=== PATIENT | female | born 1940 | race Caucasian/White ===

== ENCOUNTER 2022-11-26 16:47 | Emergency (ER) | payer OTHER, SELFPAY ==
[2022-11-26 17:16] VITALS: BP 209/72; PULSE 63; RESP 16; TEMP 36.1; O2SAT 63; BMI 28.3
--- NOTE | 2022-11-26 17:20 | ED.GENADULT ---
HPI - General Adult General Chief complaint: General Medical Stated complaint: UC referral high blood pressure Time Seen by Provider: 11/26/22 21:48 Source: patient Mode of arrival: ambulatory Limitations: no limitations History of Present Illness HPI narrative: 82-year-old female presents with multiple complaints. Her story starts yesterday where she developed blurred vision light sensitivity and I pain secondary to a new eyedrop for glaucoma. She was taking Alphagan. Symptoms lasted for several hours. She had severe photophobia. She had no nausea vomiting. Patient also developed a right-sided headache, dental pain and facial swelling as well as lymphadenopathy. Symptoms progressed today. She describes her pain as moderate to severe particularly in the left lower jaw. The pain can radiate to her neck into her hindu. There is no clear relieving or exacerbating features. Patient describes the pain as an 8/10. It is aching and pressure-like in nature. She has no focal neurologic deficits. She does also have a history of temporal arteritis but that has been several years ago. She has had no fevers or chills. She denies any neck pain or stiffness. She went to urgent care today was getting a prescription for penicillin however, her blood pressure was noted to be markedly elevated and she was sent to the emergency department for evaluation. Related Data Previous Rx's Medication Instructions Recorded acetaminophen 300 mg-codeine 30 mg 1 tab PO Q8H PRN pain #10 tabs 11/27/22 tablet amoxicillin 875 mg-potassium 1 tab PO BID #20 tabs 11/27/22 clavulanate 125 mg tablet Allergies Allergy/AdvReac Type Severity Reaction Status Date / Time morphine AdvReac vomiting Verified 11/26/22 17:24 Review of Systems Review of Systems: CONSTITUTIONAL: Denies weight loss, fever and chills. HEENT: + changes in vision - hearing. RESPIRATORY: Denies SOB and cough. CV: Denies palpitations no CP. GI: Denies abdominal pain, nausea, vomiting and diarrhea. : Denies dysuria and urinary frequency. MSK: Denies myalgia and joint pain. SKIN: Denies rash and pruritus. NEUROLOGICAL: + headache - syncope. PSYCHIATRIC: Denies recent changes in mood. Denies anxiety and depression. All other ROS are negative unless in HPI PMFSH Social History Social History Advance Directives: No Advance Directives Information Provided: Yes Physical Exam ED Vital Signs: Vital Signs - 24 hr 11/26/22 17:16 11/26/22 19:17 11/26/22 21:21 Temperature 96.9 F 98.6 F 98.6 F Pulse Rate 63 67 64 Respiratory Rate 16 16 18 Blood Pressure 209/72 H 223/91 H 188/85 H Pulse Oximetry 63 L 98 98 Oxygen Delivery Method Room Air Room Air Room Air 11/26/22 22:23 11/26/22 23:20 11/27/22 00:11 Temperature 98.3 F 97.4 F 98.3 F Pulse Rate 59 59 56 Respiratory Rate 18 16 16 Blood Pressure 147/68 H 182/92 H 157/75 H Pulse Oximetry 96 98 98 Oxygen Delivery Method Room Air Room Air Room Air BMI result Body Mass Index 28.3 GEN: Well developed, no acute distress, alert, oriented HEENT: Normocephalic, atraumatic, normal external ears, nose appears normal, no oropharyngeal edema or exudates dental zoya, right mandible. No facial swelling. Tender to palpation Eyes: Normal to appearance Neck: Supple, no lymphadenopathy Respiratory: Talks in complete sentences, no respiratory distress, clear to auscultation bilaterally Cardiovascular: Regular rate and rhythm, no murmurs rubs or gallops Abdomen: Soft, nontender, nondistended, no guarding, no rebound Back: No CVA tenderness Extremities: No clubbing cyanosis or edema Neurologic: No focal neurologic deficits, cranial nerves 2-12 intact, strength is 5/5 bilaterally Skin: No rash Course Course Course Narrative: This is a rapid medical exam: Additional HPI, ROS, PE not included below will be deferred to primary provider. Patient is an 82-year-old female sent to the emergency department for evaluation of high blood pressure noted at urgent care. Patient was seen there for right lower jaw pain due to lost filling since yesterday. States pain is radiating to ear and lateral neck, feels as though lymph nodes are swollen. Denies fevers. Patient denies any history of HTN and does not take any BP medications. BP 209/72 in triage. Denies current chest pain or shortness of breath but states did have some dyspnea last night. Denies headache or visual changes. Plan: EKG, labs Reevaluation(s) Reevaluation #1: The workup is complete. Her sedimentation rate is normal. There is no evidence of temporal arteritis. Her blood pressure has normalized. I do suspect her pressure is elevated due to her glaucoma medication. She will follow-up with her primary care provider to further assess her blood pressure and determine if she needs any intervention. I discussed all results with the patient including her EKG. She will contact her civil design specialist on Tuesday to determine if she should have a change of eyedrops. Time: 00:45 Medications Administered Discontinued Medications Generic Name Dose Route Start Last Admin Trade Name Frankie PRN Reason Stop Dose Admin Acetaminophen/Codeine Phosphate 1 tab 11/26/22 22:46 11/26/22 23:13 Acetaminophen With Codeine # 3 Tablet PO 11/26/22 22:47 1 tab ONCE ONE Administration Amoxicillin/Clavulanate Potassium 875 mg 11/26/22 22:46 11/26/22 23:14 Amoxicillin/Potassium Clav 875 Mg Tablet PO 11/26/22 22:47 875 mg ONCE ONE Administration Medical Decision Making Medical Decision Making [facility] Narrative: 82-year-old female presents with multiple complaints. Patient reports vision changes after taking Alphagan. Those symptoms have significantly resolved. Subsequently she developed dental pain and swelling with lymphadenopathy. Patient likely has a periapical abscess. However, she also describes headache in the hindu area on the right side. She does have a history of temporal arteritis. Patient will need an ESR. Patient's blood pressure has also been markedly elevated. This could be essential hypertension, medication reaction, anxiety, pain and discomfort. In the meantime, I will provide the patient with Augmentin for dental infection, Tylenol No. 3 which has worked for her in the past and evaluate the patient subsequently. Differential Diagnosis Differential Diagnoses: The differential diagnosis associated with the presentation includes (See above) Admission/Observation Consideration of admission/observation: Escalation of care including admission/observation considered Lab Data [facility] Lab Attestation statement: I reviewed the patient's lab results. 11/26/22 19:15 11/26/22 19:15 Labs: Lab Results 11/26/22 11/26/22 11/26/22 Range/Units 19:15 19:15 19:15 WBC 6.9 (4.8-10.8) X10*3/uL RBC 5.00 (4.20-5.50) X10*6/uL Hgb 14.0 (12.0-16.0) g/dl Hct 42.2 (37.0-47.0) % MCV 84.4 (80.0-98.0) fL MCH 28.0 (27.0-33.0) pg MCHC 33.2 (31.0-35.0) g/dl RDW 13.4 (11.0-16.0) % Plt Count 277 (160-400) X10*3/uL MPV 9.2 L (9.4-12.3) fL Immature Gran % (Auto) 0.1 (0.0-0.4) % Neut % (Auto) 44.8 L (45-73) % Lymph % (Auto) 44.0 H (20-40) % [place] % (Auto) 8.7 (2-11) % Eos % (Auto) 1.7 (0-4) % Baso % (Auto) 0.7 (0-2) % Lymph # (Auto) 3.0 (1.2-4.9) X10*3/uL [place] # (Auto) 0.6 (0.1-1.2) X10*3/uL Eos # (Auto) 0.1 (0.0-0.4) X10*3/uL Baso # (Auto) 0.1 (0.0-0.2) X10*3/uL Abs Immat Gran (auto) 0.01 (0.00-0.03) X10*3/uL Absolute Neuts (auto) 3.1 (2.0-8.3) x10*3/uL Absolute Nucleated RBC 0.000 (0.0-0.012) X10*3/uL Nucleated RBC % (auto) 0.0 (0.0-0.2) /100WBC ESR (0-20) MM/HR Sodium 146 H (135-145) mmol/L Potassium 4.1 (3.3-5.1) mmol/L Chloride 108 (96-108) mmol/L Carbon Dioxide 30 H (22-29) mmol/L Anion Gap 12 (12-20) BUN 13 (9-16) mg/dL Creatinine 0.79 (0.5-1.4) mg/dL Estim Creat Clear Calc 53.2 Estimated GFR > 60 Random Glucose 165 H (60-115) mg/dL Calcium 9.9 (8.4-10.2) mg/dL Total Bilirubin 0.4 (0.0-1.0) mg/dL AST 20 (5-31) U/L ALT 14 (0-31) U/L Alkaline Phosphatase 75 (39-117) U/L Troponin I High Sens < 2.7 (<3.5-17.0) ng/L Total Protein 8.0 (6.5-8.0) g/dL Albumin 4.2 (3.5-5.0) g/dL Urine Color Urine Appearance Urine pH (5.0-9.0) Ur Specific [place] (1.005-1.025) Urine Protein (Neg-Trace) mg/dL Urine Glucose (UA) (Negative) mg/dL Urine Ketones (Negative) mg/dL Urine Blood (Negative) Urine Nitrite (Negative) Ur Leukocyte Esterase (Negative) Urine RBC (0-2) /HPF Urine WBC (0-5) /HPF Ur Squamous Epith Cells (0-2) /HPF Urine Bacteria (None Seen) Hyaline Casts (0-2) /LPF 11/26/22 11/26/22 11/26/22 Range/Units 23:32 23:32 23:32 WBC (4.8-10.8) X10*3/uL RBC (4.20-5.50) X10*6/uL Hgb (12.0-16.0) g/dl Hct (37.0-47.0) % MCV (80.0-98.0) fL MCH (27.0-33.0) pg MCHC (31.0-35.0) g/dl RDW (11.0-16.0) % Plt Count (160-400) X10*3/uL MPV (9.4-12.3) fL Immature Gran % (Auto) (0.0-0.4) % Neut % (Auto) (45-73) % Lymph % (Auto) (20-40) % [place] % (Auto) (2-11) % Eos % (Auto) (0-4) % Baso % (Auto) (0-2) % Lymph # (Auto) (1.2-4.9) X10*3/uL [place] # (Auto) (0.1-1.2) X10*3/uL Eos # (Auto) (0.0-0.4) X10*3/uL Baso # (Auto) (0.0-0.2) X10*3/uL Abs Immat Gran (auto) (0.00-0.03) X10*3/uL Absolute Neuts (auto) (2.0-8.3) x10*3/uL Absolute Nucleated RBC (0.0-0.012) X10*3/uL Nucleated RBC % (auto) (0.0-0.2) /100WBC ESR 14 (0-20) MM/HR Sodium (135-145) mmol/L Potassium (3.3-5.1) mmol/L Chloride (96-108) mmol/L Carbon Dioxide (22-29) mmol/L Anion Gap (12-20) BUN (9-16) mg/dL Creatinine (0.5-1.4) mg/dL Estim Creat Clear Calc Estimated GFR Random Glucose (60-115) mg/dL Calcium (8.4-10.2) mg/dL Total Bilirubin (0.0-1.0) mg/dL AST (5-31) U/L ALT (0-31) U/L Alkaline Phosphatase (39-117) U/L Troponin I High Sens < 2.7 (<3.5-17.0) ng/L Total Protein (6.5-8.0) g/dL Albumin (3.5-5.0) g/dL Urine Color Yellow Urine Appearance Clear Urine pH 6.5 (5.0-9.0) Ur Specific [place] 1.020 (1.005-1.025) Urine Protein Negative (Neg-Trace) mg/dL Urine Glucose (UA) Negative (Negative) mg/dL Urine Ketones Negative (Negative) mg/dL Urine Blood Negative (Negative) Urine Nitrite Negative (Negative) Ur Leukocyte Esterase Trace H (Negative) Urine RBC 0-2 (0-2) /HPF Urine WBC 0-5 (0-5) /HPF Ur Squamous Epith Cells 0-2 (0-2) /HPF Urine Bacteria None Seen (None Seen) Hyaline Casts 0-2 (0-2) /LPF Independent Interpretation I performed an independent interpretation of an: EKG (Sinus bradycardia heart rate 59, possible LVH, no acute ST elevations depressions, nonspecific T-wave changes) Independent Historian Clinical information obtained from an independent historian. History obtained from or confirmed by: Friend Prescription Management I considered prescription management with: Pain Medication and Antibiotic Discharge Plan Discharge Clinical Impression: Dental infection, Elevated blood pressure reading, Photo phobia, Headache Patient Disposition: Home, Self-Care Instructions: Dental Abscess (ED), General Headache (ED), Photophobia (ED) Prescriptions: New amoxicillin-pot clavulanate 875-125 mg tablet 1 tab PO BID Qty: 20 0RF acetaminophen-codeine 300-30 mg tablet 1 tab PO Q8H PRN (Reason: pain) Qty: 10 0RF Referrals: Lisha Lopez MD [Primary Care Provider] - Interventions: ED Discharge Assessment Last Done: 11/27/22 01:29 Discharge Date/Time: 11/27/22 01:33
--- NOTE | 2022-11-26 17:24 | ECG_ITS ---
Test Reason : HIGH BP Blood Pressure : / mmHG Vent. Rate : 059 BPM Atrial Rate : 059 BPM P-R Int : 178 ms QRS Dur : 084 ms QT Int : 418 ms P-R-T Axes : 022 010 001 degrees QTc Int : 413 ms Sinus bradycardia Minimal voltage criteria for LVH, may be normal variant ( R in aVL ) Borderline ECG No previous ECGs available Referred By: Janie Boland Electronically Signed By:SHAWN KELLY
[2022-11-26 19:17] VITALS: BP 223/91; PULSE 67; RESP 16; TEMP 37; O2SAT 98
[2022-11-26 19:18] LABS: MANUAL DIFF FLAG NO
[2022-11-26 19:20] LABS: Basophils Absolute Auto 0.1 X10*3/uL (0.0-0.2); Basophils Percent Auto 0.7 % (0-2); Eosinophils Absolute Auto 0.1 X10*3/uL (0.0-0.4); Eosinophils Percent Auto 1.7 % (0-4); Hematocrit 42.2 % (37.0-47.0); Imm Gran Abs Auto 0.01 X10*3/uL (0.00-0.03); Imm Gran Pct Auto 0.1 % (0.0-0.4); Mean Corpuscular HGB Conc 33.2 g/dl (31.0-35.0); Mean Corpuscular Volume 84.4 fL (80.0-98.0); Mean Platelet Volume 9.2 fL (9.4-12.3); Monocytes Absolute Auto 0.6 X10*3/uL (0.1-1.2); Monocytes Percent Auto 8.7 % (2-11); Neutrophils Absolute Auto 3.1 x10*3/uL (2.0-8.3); Neutrophils Percent Auto 44.8 % (45-73); Platelet Count 277 X10*3/uL (160-400); Red Cell Distribution Width 13.4 % (11.0-16.0); White Blood Count 6.9 X10*3/uL (4.8-10.8)
--- NOTE | 2022-11-26 19:21 | MHC.EDTECH ---
PT BLOOD DRAWN AND SENT TO LAB ,VITALS SIGN TAKEN ,NICOLLE MORTENSEN IS AWARE OF PT HIGH BP .
[2022-11-26 19:36] LABS: Alanine Aminotransferase 14 U/L (0-31); Albumin Level 4.2 g/dL (3.5-5.0); Alkaline Phosphatase 75 U/L (39-117); Anion Gap 12 (12-20); Aspartate Amino Transferase 20 U/L (5-31); Bilirubin Total 0.4 mg/dL (0.0-1.0); Blood Urea Nitrogen 13 mg/dL (9-16); Calcium 9.9 mg/dL (8.4-10.2); Carbon Dioxide 30 mmol/L (22-29); Chloride 108 mmol/L (96-108); Creatinine Clr Calc Pharmacy 53.2; Estimated Glomerular Filt Rate > 60; Glucose Random 165 mg/dL (60-115); Potassium 4.1 mmol/L (3.3-5.1); Sodium 146 mmol/L (135-145)
[2022-11-26 19:48] LABS: Troponin-I High Sensitivity < 2.7 ng/L (<3.5-17.0)
[2022-11-26 21:21] VITALS: BP 188/85; PULSE 64; RESP 18; TEMP 37; O2SAT 98
--- OUTSIDE RECORDS SUMMARY | 2022-11-26 21:40 | XMS_ITS | Continuity of Care Document ---
Author Name Unknown Organization [facility] Address [address] [place] [address]- Care Team Providers Care Medical Library Assistant Name Role Phone Lisha Lopez MD [id number] Date[facility]s): [facility]/18/[facility] - 10/28/[address] [address] [facility] Attending Physician: Jodie Agarwal MD Admitting Physician: Jodie Agarwal MD Referring Physician: Lisha Lopez MD Allergies, Adverse Reactions, Alerts Substance Reaction Severity Status morphine Active Contrast Dye Active Immunizations Given and Recorded Vaccine Date Status Refusal Reason diphtheria/tetanus/pertussis, acel(DTaP) 1 12/11/06 Given Meningococcal Polysaccharide Vaccine 2 03/24/97 Gi jamie Not Given Vaccine Date Status Refusal Reason pneumococcal 13-valent vaccine 07/11/16 Not Given Patient Refuses 1Admin Note: vis given. 2Admin Note: 3 shots, exposure at [employer] Medications Aquatherapy Aquatherapy, See Instructions, # 3 box, Refills 11, Tot. Refills 11, Maintenance, aquatherapy bid for 6 weeks; dx=OA knees, 10/26/18 20:22:37 EDT, Compound Start Date: 10/26/18 Status: Ordered CPAP Equipment See Instructions, # 1 box, Refills 1, Tot. Refills 1, Maintenance, CPAP supplies; Cpap 7mm H20; dx=SHAYY, 06/08/17 12:58:54, Compound Start Date: 06/08/17 Status: Ordered diclofenac 1% topical gel 1 application, Topically, 4 times a day, not to exceed 16 grams/day/single joint of lower extremities, # 100 Gm, 4 Refills, Maintenance, 03/26/19 17:07:00 EST, Gel, [facility] #[id number], 160, cm, 03/26/19 16:28:00 EST, Height, 75, kg, 03/17/19... Start Date: 03/26/19 Status: Ordered niacin 100 mg oral tablet 1 tablet = 100 mg, By Mouth, 2 times a day, for 90 days, with meals, # 180 tablet, 3 Refills, Hard Stop 10/07/20 11:46:00 EDT, 10/13/19 11:46:00 EDT, [facility] #[id number], 160, cm, 04/20/19 9:45:00 EST, Height, 75, kg, 03/17/19 14:27:00 EST, Start Date: 10/13/19 Stop Date: 10/07/20 Status: Ordered Problem List Condition Effective Dates Status Health Status Inform ant Allergic rhinitis(Confirmed) Active Chest pain(Confirmed) 1 Active Chronic back pain(Confirmed) 2 Active Computed tomography (CT) of brain abnormal(Confirmed) 3 05/2009 Active Cutaneous polyp(Confirmed) 2007 Active Female cystocele(Confirmed) Active Depression(Confirmed) Active Diabetes(Confirmed) Active Fear associated with healthcare(Confirmed) 5 Active Glaucoma(Confirmed) Active Hyperlipidemia(Confirmed) 04/27/07 Active Hypertension(Confirmed) 04/27/07 Active Knee effusion, left(Confirmed) Active Knee pain. R>L. 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 Active Lipoma of skin(Confirmed) Active Skin lumps(Confirmed) 7 Active Multinodular goiter(Confirmed) Active Neck pain(Confirmed) Active Noncompliance with medicatio n regimen(Confirmed) 8 Active Obesity (BMI 30.0-34.9)(Confirmed) Active SHAYY - Obstructive sleep apnea(Confirmed) 9, 10 04/27/07 Active OA (osteoarthritis) of knee(Confirmed) Active *[id number]-Care Partn rita-Amelia Mueller(Confirmed) Active 1recurrent sx w Persantine MIBI, cardiac cath w/o CAD- Dr Garcia 2003 2aquatherapy @ [facility] 3Multiple hypodensities within the head of the right 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 had phys therapy but worse 7arms/legs 8distrust and fear of medications. wants to stick with natural treatments 9nasal mask [id number] delmi'd. Severe sleep apnea. 10did not tolerate CPAP. repeat titration pendg. Social History Social History Type Response Smoking Status Never smoker entered on: 04/09/14 Sex
--- OUTSIDE RECORDS SUMMARY | 2022-11-26 21:40 | XMS_ITS | Continuity of Care Document ---
Author Name Unknown Organization [facility] Address [address] [place] [address]- Care Team Providers Care Combine Mechanic Name Role Phone Lisha Lopez MD Primary Care Physician Encounter [facility] Date(s): 07/15/21 - 08/14/[address] [address]- Allergies, Adverse Reactions, Alerts Substance Reaction Severity Status morphine Active Contrast Dye Active Immunizations Given and Recorded Vaccine Date Status Refusal Reason diphtheria/tetanus/pertussis, acel(DTaP) 1 12/11/06 Given Meningococcal Polysaccharide Vaccine 2 03/24/97 Gi jamie Not Given Vaccine Date Status Refusal Reason pneumococcal 13-valent vaccine 07/11/16 Not Given Patient Refuses 1Admin Note: vis given. 2Admin Note: 3 shots, exposure at [employer] Medications B 100 Complex 1 tablet, By Mouth, Daily, Maintenance, 08/12/21 11:58:00 EDT, Partial fill upon patient request ifthe prescription is for a schedule II opioid drug. Start Date: 08/12/21 Status: Ordered Centravites 50 Plus By Mouth, Daily, 0 Refills, Maintenance, 06/14/20 15:47:00 EST, Partial fill upon patient request if the prescription is for a schedule II opioid drug. Start Date: 06/14/20 Status: Ordered Citracal Caplets Plus D See Instructions, By Mouth daily, 0 Refills, Maintenance, 06/14/20 15:45:00 EST, Partial fill upon patient request if the prescription is for a schedule II opioid drug. Start Date: 06/14/20 Status: Ordered commode commode, See Instructions, # 1 each, Refills 0, Tot. Refills 0, Maintenance, Bedside commode, 08/14/21 10:17:00 EDT, Compound Start Date: 08/14/21 Status: Ordered diclofenac 1% topical gel 1 application, Topically, 4 times a day, PRN Pain , Moderate, # 100 Gm, 0 Refills, Maintenance, 08/14/21 10:31:00 EDT, Gel, [facility], Partial fill upon patient request if the prescription is for a schedule II opioid drug., 160, cm, 05/... Start Date: 08/14/21 Status: Ordered Home Blood Pressure Monitor See Instructions, # 1 pack/packet, Refills 0, Tot. Refills 0, Maintenance, Digital home BP monitor for daily use; dx= R55;I63.9, 07/15/21 12:35:00 EDT, Supply Start Date: 07/15/21 Status: Ordered Myrbetriq 25 mg oral tablet, extended release 1 tablet = 25 mg, By Mouth, Daily, do not crush or chew, Maintenance, 08/12/21 11:57:00 EDT, ER Tablet, Partial fill upon patient request if the prescription is for a schedule II opioid drug. Start Date: 08/12/21 Status: Ordered Oxygen Supplies See Instructions, # 1 pack/packet, Refills 11, Tot. Refills 11, Maintenance, Nocturnal O2 at 2L/m; dx SHAYY severe, unable to tolerate CPAP, 07/24/21 14:14:00 EDT, Supply Start Date: 07/24/21 Status: Ordered Timolol Maleate (Eqv-Timoptic) 0.5% ophthalmic solution 1 drops, Eyes, Both, Daily, Maintenance, 08/12/21 11:56:00 EDT, Partial fill upon patient request if the prescription is for a schedule II opioid drug. Start Date: 08/12/21 Status: Ordered Vitamin C 500 mg oral tablet 1 tablet = 500 mg, By Mouth, Daily, 0 Refills, Maintenance, 06/14/20 15:48:00 EST, Partial fill upon patient request if the prescription is for a schedule II opioid drug. Start Date: 06/14/20 Status: Ordered Vitamin D3 2000 intl units oral capsule 1 capsule = 50 mcg, By Mouth, Daily, Maintenance, 08/12/21 11:55:00 EDT, Capsule, Partial fill uponpatient request if the prescription is for a schedule II opioid drug. Start Date: 08/12/21 Status: Ordered Walker with wheels Walker with wheels, See Instructions, # 1 each, Refills 0, Tot. 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 wants to stick with natural treatments 4nasal mask [id number] delmi'd. Severe sleep apnea. 5did not tolerate CPAP. repeat titration pendg. Social History Social History Type Response Smoking Status Never smoker entered on: 04/09/14 Sex
--- OUTSIDE RECORDS SUMMARY | 2022-11-26 21:40 | XMS_ITS | Continuity of Care Document ---
Author Name Unknown Organization [facility] Address [address] [place] [address]- Care Team Providers Care Athletic Training Internship Name Role Phone Lisha Lopez MD Primary Care Physician Encounter [facility] [place](s): 01/07/22 - 01/14/22 [facility] [address], [place] [address] Attending Physician: Quinton Xie DO Referring Physician: Lisha Lopez MD Allergies, Adverse [...] given. 2Admin Note: 3 shots, exposure at [employer] Medications albendazole 200 mg oral tablet 2 tablet = 400 mg, By Mouth, Once, with meals; may repeat in 2 weeks, # 4 tablet, 0 Refills, Soft Stop, 09/09/21 11:45:00 EDT, Tablet, [facility] #[id number], Partial fill upon patient request if the prescription is for a schedule II opioid drug.... Start Date: 09/09/21 Status: Ordered Always Incontinence briefs Always Incontinence briefs, See Instructions, # 280 pack/packet, Refills 11, Tot. Refills 11, Maintenance, dx= incontinence; pt with sensitive skin and allergic reaction to other brands, 08/28/21 11:02:00 EDT, Supply Start Date: 08/28/21 Status: Ordered B 100 Complex 1 tablet, By Mouth, [...] 0 Refills, Maintenance, 08/14/21 10:31:00 EDT, Gel, [facility], Partial fill upon patient request if the prescription is for a schedule II opioid drug., 160, cm, 05/... Start Date: 08/14/21 Status: Ordered diclofenac 1% topical gel 1 application, Topically, 4 times a day, 2 g per dose, 4 x a day. not to exceed 8 grams/day/single joint of upper extremities, # 100 Gm, 0 Refills, Maintenance, 01/07/22 15:36:00 EDT, Gel, [facility] #[id number], Partial fill upon patient request... Start Date: 01/07/22 Stop Date: 01/14/22 Status: Ordered diclofenac sodium 75 mg oral delayed release tablet 1 tablet = 75 mg, By Mouth, 2 times a day, # 28 tablet, 0 Refills, Maintenance, 01/11/22 9:43:00 EDT, EC Tablet, [facility] #[id number], Partial fill upon patient request if the prescription is for a schedule II opioid drug., 160, cm, 01/11/22 9:... Start Date: 01/11/22 Stop Date: 01/25/22 Status: Ordered Home Blood Pressure Monitor See [...] EDT, Compound Start Date: 08/14/21 Status: Ordered Zioptan 0.0015% ophthalmic solution 0 Refills, Maintenance, 09/02/21 9:46:00 EDT, Partial fill upon patient request if the prescriptionis for a schedule II opioid drug. 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 wants to stick with natural treatments 4nasal mask [id number] delmi'd. Severe sleep apnea. 5did not tolerate CPAP. repeat titration pendg. Vital Signs Most recent to oldest [Reference Range]: 1 Height 160 cm (01/07/22 1:29 PM) Oxygen Saturation [94-100 %] 99 % (01/07/22 1:29 PM) Pulse Rate [55-90 bpm] 70 bpm (01/07/22 1:29 PM) Blood Pressure [90-138/55-84 mm Hg] 179/ 75mm Hg *H* (01/07/22 1:29 PM) Respiratory Rate [16-30 br/min] 16 br/mi n (01/07/22 1:29 PM) Temperature [96.8-100.4 DegF] 98.1 DegF (01/07/22 1:29 PM) Mode of Delivery (Oxygen) Room air (01/07/22 1:29 PM) Blood pressure sites Arm, left (01/07/22 1:29 PM) Temperature Route Temporal (01/07/22 1:29 PM) Social History Social History Type Response Smoking Status Never smoker entered on: 04/09/14 Sex Patient Care team information Personnel Name: Lisha Lopez MD Address: Address: [address] [place] [address]
--- OUTSIDE RECORDS SUMMARY | 2022-11-26 21:40 | XMS_ITS | Continuity of Care Document ---
Author Name Unknown Organization [facility] Address [address] [place] [address]- Care Team Providers Care Dumping Machine Operator Name Role Phone Lisha Lopez MD Primary Care Physician En[place] [facility] [place] [facility] [place] [id number] Date(s): 02/03/22 - 03/05/[address] [address]- Attending Physician: Holden Rosario Admitting Physician: Holden Rosario Referring Physician: Holden Rosario Referring Physician: Shaunna Huston Allergies, Adverse Reactions, Alerts Substance Reaction Severity Status morphine Active Contrast Dye Active Immunizations Given and Recorded Vaccine Date Status Refusal Reason diphtheria/tetanus/pertussis, acel(DTaP) 1 12/11/06 Given Meningococcal Polysaccharide Vaccine 2 03/24/97 Gi jamie Not Given Vaccine Date Status Refusal Reason pneumococcal 13-valent vaccine 07/11/16 Not Given Patient Refuses 1Admin Note: vis given. 2Admin Note: 3 shots, exposure at [employer] Medications Always Incontinence briefs Always Incontinence briefs, See [...] 0 Refills, Maintenance, 08/14/21 10:31:00 EDT, Gel, [facility] 3, Partial fill upon patient request if the prescription is for a schedule II opioid drug., 160, cm, 05... Start Date: 08/14/21 Status: Ordered diclofenac 1% topical gel 1 application, Topically, 4 times a day, 2 g per dose, 4 x a day. not to exceed 8 grams/day/single joint of upper extremities, # 100 Gm, 0 Refills, Maintenance, 01/07/22 15:36:00 EDT, Gel, [facility] #[id number], Partial fill upon patient request... Start Date: 01/07/22 Stop Date: 01/14/22 Status: Ordered diclofenac sodium 75 mg oral delayed release tablet 1 tablet = 75 mg, By Mouth, 2 times a day, # 28 tablet, 0 Refills, Maintenance, 01/11/22 9:43:00 EDT, EC Tablet, [facility] #[id number], Partial fill upon patient request if the [...] EDT, Compound Start Date: 08/14/21 Status: Ordered Wheelchair See Instructions, # 1 each, Refills 0, Tot. Refills 0, Maintenance, for use daily; dx= Osteoarthritis knees bilaterally, 02/03/22 11:52:00 EDT, Supply Start Date: 02/03/22 Status: Ordered Zioptan 0.0015% ophthalmic solution 0 [...] Active OA (osteoarthritis) of knee Confirmed Active *[id number] Cancer Genetics Assistant Gill Sharpe Confirmed Active Type 2 diabetes mellitus Confirmed Active 1aquatherapy @ [facility] 2fear and mistrust of medications 3distrust and fear of medications. wants to stick with natural treatments 4nasal mask [id number] delmi'd. Severe sleep apnea. 5did not tolerate CPAP. repeat titration pendg. Social History Social History Type Response Smoking Status Never smoker entered on: 04/09/14 Sex Note * Event Display: MRI Ankle/Foot, Non- BH Authored Date: * Event Display: Ultrasound Neck, Non-BH Authored Date: * Event Display: X-Ray Ankle/Foot, Non- BH Authored Date: * Event Display: X-Ray Ankle/Foot, Non- BH Authored Date: * Event Display: Non BH Lab Results Authored Date: * Event Display: X-Ray Ankle/Foot, Non- BH Authored Date: * Event Display: CT Scan Spine Authored Date: * Event Display: Ultrasound Neck, Non-BH Authored Date: * Event Display: Ultrasound Neck, Non-BH Authored Date: CT Head * Event Display: CT Scan Head Authored Date: Patient Care team information Care Team Personnel Name: Lara Kern RN Position: [facility] RN Member Role: Primary Care Nurse Name: Lisha Lopez MD Position: [facility] Primary Care Physician Member Role: PCP Address: Address: [address] [place] [id number]- Name: Marbella Costa RN Position: [facility] RN Member Role: Primary Care Nurse Name: Alisia Rojo RN Position: [facility] ED RN W/OE and Tasks Member Role: Primary Care Nurse Name: Monica Peña RN Position: [facility] RN Member Role: Primary Care Nurse Name: Kiersten Thomas RN Position: [facility] RN Member Role: Primary Care Nurse Care Team Related Persons Name: SLOAN HUERTAS Address: [place] [address]
--- OUTSIDE RECORDS SUMMARY | 2022-11-26 21:40 | XMS_ITS | Continuity of Care Document ---
Author Name Unknown Organization [facility] Address [address] [place] [address]- Care Team Providers Care Textile Colorist Formulator Name Role Phone Lisha Lopez MD Primary Care Physician [place] [facility] [place] 11/17/21 - 11/24/21 [facility] [address] [place] [address]- Encounter Diagnosis Hyperlipidemia(Discharge Diagnosis) - 11/17/21 Hypertension(Discharge Diagnosis) - 11/17/21 SHAYY - Obstructive sleep apnea(Discharge Diagnosis) - 11/17/21 Atypical chest pain(Discharge Diagnosis) - 11/17/21 Shortness of breath(Discharge Diagnosis) - 11/17/21 Attending Physician: Chandrika Valencia MD Referring Physician: Lisha Lopez MD Allergies, [...] given. 2Admin Note: 3 shots, exposure at [employer] Medications albendazole 200 mg oral tablet 2 tablet = 400 mg, By Mouth, Once, with meals; may repeat in 2 weeks, # 4 tablet, 0 Refills, Soft Stop, 09/09/21 11:45:00 EDT, Tablet, [email or web address] #[id number], Partial fill upon patient request if the [...] 0 Refills, Maintenance, 08/14/21 10:31:00 EDT, Gel, [facility] 3, Partial fill upon patient [...] Date: 09/02/21 Status: Ordered Problem List Condition Effective Dates Status Health Status Inform ant Allergic rhinitis(Confirmed) Active Atypical chest pain(Confirmed) Active Chronic back pain(Confirmed) 1 Active Depression(Confirmed) Active Shortness of breath(Confirmed) Active Fear associated with healthcare(Confirmed) 2 Active Glaucoma(Confirmed) Active Hyperlipidemia(Confirmed) 04/27/07 Active Hypertension(Confirmed) 04/27/07 Active Impaired fasting glucose(Confirmed) Active Lacunar infarcts of R caudat e nucleus(Confirmed) 2009 Active Legally blind(Confirmed) Active Multinodular goiter(Confirmed) Active Noncompliance with medicatio n regimen(Confirmed) 3 Active Obesity (BMI 30.0-34.9)(Confirmed) Active SHAYY - Obstructive sleep apnea(Confirmed) 4, 5 04/27/07 Active OA (osteoarthritis) of knee(Confirmed) Active *[id number] Care Partn er Gill Sharpe(Confirmed) Active Type 2 diabetes mellitus(Confirmed) Active 1aquatherapy @ [facility] 2fear and mistrust of medications 3distrust and fear of medications. wants to stick with natural treatments 4nasal mask [id number] delmi'd. Severe sleep apnea. 5did not tolerate CPAP. repeat titration pendg. Diagnosis Diagnosis Type Effective Dates Health Status Clinical Service Informant Hyperlipidemia Discharge Diagnosis 11/17/21 Hypertension Discharge Diagnosis 11/17/21 SHAYY - Obstructive sleep apnea Discharge Diagnosis 11/17/21 Atypical chest pain Discharge Diagnosis 11/17/21 Shortness of breath Discharge Diagnosis 11/17/21 Vital Signs Most recent to oldest [Reference Range]: 1 Height 160 cm (11/17/21 3:31 PM) Weight 73.0 kg (11/17/21 3:31 PM) Oxygen Saturation [94-100 %] 98 % (11/17/21 3:31 PM) Pulse Rate [55-90 bpm] 68 bpm (11/17/21 3:31 PM) Body Mass Index [18.5-24.99] 28.52 *H* (11/17/21 3:31 PM) Blood Pressure [90-138/55-84 mm Hg] 141/ 72mm Hg *H* (11/17/21 3:31 PM) Blood pressure sites Arm, left (11/17/21 3:31 PM) Social History Social History Type Response Smoking Status Never smoker entered on: 04/09/14 Sex
--- OUTSIDE RECORDS SUMMARY | 2022-11-26 21:40 | XMS_ITS | Continuity of Care Document ---
Author Name Unknown Organization [facility] Address [address] [place] [address]- Care Team Providers Care Hull Molder Name Role Phone Lisha Lopez MD Primary Care Physician Encounter [facility] Date(s): 02/19/20 - 03/20/[address] [address]- Allergies, Adverse Reactions, Alerts Substance Reaction Severity Status morphine Active Contrast Dye Active Immunizations Given and Recorded Vaccine Date Status Refusal Reason diphtheria/tetanus/pertussis, acel(DTaP) 1 12/11/06 Given Meningococcal Polysaccharide Vaccine 2 03/24/97 Gi jamie Not Given Vaccine Date Status Refusal Reason pneumococcal 13-valent vaccine 07/11/16 Not Given Patient Refuses 1Admin Note: vis given. 2Admin Note: 3 shots, exposure at [email or web address] Medications Aquatherapy Aquatherapy, See Instructions, # 3 box, Refills 11, Tot. Refills 11, Maintenance, aquatherapy bid for 6 weeks; dx=OA knees, 10/26/18 20:22:37 EDT, Compound Start Date: 10/26/18 Status: Ordered aspirin 81 mg oral delayed release tablet 81 mg, By Mouth, Daily, # 30 tablet, Refills 0, Tot. Refills 0, Maintenance, 12/25/19 11:17:00 EDT,Route to Pharmacy Electronically, [facility], 160, cm, 06/27/19 12:15:00 EDT, Height,75, kg, 03/17/19 14:27:00 EST, Dry Weight Start Date: 12/25/19 Status: Ordered cetirizine 10 mg oral tablet 1 tablet = 10 mg, By Mouth, Daily, # 14 tablet, 0 Refills, Maintenance, 03/06/20 16:12:00 EST, [facility] #[id number], Partial fill upon patient request if the prescription is for a schedule II opioid drug., 160, cm, 03/06/20 16:05:00 EST, Height... Start Date: 03/06/20 Stop Date: 03/20/20 Status: Ordered CPAP Equipment See Instructions, # 1 box, Refills 1, Tot. Refills 1, Maintenance, CPAP supplies; Cpap 7mm H20; dx=SHAYY, 06/08/17 12:58:54, Compound Start Date: 06/08/17 Status: Ordered diclofenac 1% topical gel 1 application, Topically, 4 times a day, not to exceed 8 grams/day/single joint of upper extremities, # 100 Gm, 4 Refills, Maintenance, 03/05/20 9:46:00 EST, Gel, [email or web address] #[id number], 160, cm, 01/16/20 11:22:00 EDT, Height, 75, kg, 03/17/19 14... Start Date: 03/05/20 Status: Ordered niacin 100 mg oral tablet 1 tablet = 100 mg, By Mouth, 2 times a day, for 90 days, with meals, # 180 tablet, 3 Refills, Hard Stop 10/07/20 11:46:00 EDT, 10/13/19 11:46:00 EDT, [email or web address] #[id number], 160, cm, 04/20/19 9:45:00 EST, Height, 75, kg, 03/17/19 14:27:00 EST, Start Date: 10/13/19 Stop Date: 10/07/20 Status: Ordered Travatan Z 0.004% ophthalmic solution 1 drops, Topically, Daily before dinner, # 2.5 mL, 1 Refills, Maintenance, 12/25/19 10:53:00 EDT, Solution, [facility], 1 drops Topically Daily before dinner, 160, cm, 06/27/19 12:15:00EDT, Height, 75, kg, 03/17/19 14:27:00 EST, Dry Weight Start Date: 12/25/19 Status: Ordered Zioptan 0.0015% ophthalmic solution 1 drops, Eyes, Both, Daily in PM, per opth, # 3 mL, 0 Refills, Maintenance, 01/16/20 11:07:00 EDT, Solution Start Date: 01/16/20 Status: Ordered Problem List Condition Effective Dates Status Health Status Inform ant Allergic rhinitis(Confirmed) Active Chest pain(Confirmed) 1 Active Chronic back pain(Confirmed) 2 Active Computed tomography (CT) of brain abnormal(Confirmed) 3 05/2009 Active Cutaneous polyp(Confirmed) 4 2007 Active Female cystocele(Confirmed) Active Depression(Confirmed) Active Diabetes(Confirmed) Active Fear associated with healthcare(Confirmed) 5 Active Glaucoma(Confirmed) Active Hammer toe(Confirmed) 02/18/17 Active Hyperlipidemia(Confirmed) 04/27/07 Active Hypertension(Confirmed) 04/27/07 Active Ingrowing nail(Confirmed) 02/18/17 Active Knee effusion, left(Confirmed) Active Knee pain. [...] 04/27/07 Active OA (osteoarthritis) of knee(Confirmed) Active Pain in toe(Confirmed) 02/18/17 Active *[phone] Care Partn er Gill Annemarie(Confirmed) Active 1recurrent sx w Persantine MIBI, cardiac cath w/o CAD- Dr Garcia 2003 2aquatherapy @ [facility] 3Multiple hypodensities within the head of the right 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 had phys therapy but worse 7arms/legs 8distrust and fear of medications. wants to stick with natural treatments 9nasal mask [id number] delmi'd. Severe sleep apnea. 10did not tolerate CPAP. repeat titration pendg. Social History Social History Type Response Smoking Status Never smoker entered on: 04/09/14 Sex
--- OUTSIDE RECORDS SUMMARY | 2022-11-26 21:40 | XMS_ITS | Continuity of Care Document ---
Author Name Unknown Organization [facility] Address [address] [place] [address]- Care Team Providers Care Meter Tester Name Role Phone Lisha Lopez MD Primary Care Physician Encounter [facility] [place] Date(s): 06/26/19 - 07/27/[address] [address]- [facility] Attending Physician: Lisha Lopez MD Allergies, Adverse Reactions, Alerts Substance Reaction Severity Status morphine Active Contrast Dye Active Immunizations Given and Recorded Vaccine Date Status Refusal Reason diphtheria/tetanus/pertussis, acel(DTaP) 1 12/11/06 Given Meningococcal Polysaccharide Vaccine 2 03/24/97 Gi jamie Not Given Vaccine Date Status Refusal Reason pneumococcal 13-valent vaccine 07/11/16 Not Given Patient Refuses 1Admin Note: vis given. 2Admin Note: 3 shots, exposure at [employer] Medications Aquatherapy Aquatherapy, See Instructions, # 3 [...] 4 Refills, Maintenance, 03/26/19 17:07:00 EST, Gel, [facility] #[id number], 160, cm, 03/26/19 16:28:00 EST, Height, 75, kg, 03/17/19... Start Date: 03/26/19 Status: Ordered niacin 100 mg oral tablet 1 tablet = 100 mg, By Mouth, 2 times a day, for 90 days, with meals, # 180 tablet, 3 Refills, Hard Stop 10/07/20 11:46:00 EDT, 10/13/19 11:46:00 EDT, [facility] #[id number], 160, cm, 04/20/19 9:45:00 EST, Height, 75, kg, 03/17/19 14:27:00 EST, Start Date: 10/13/19 Stop Date: 10/07/20 Status: Ordered niacin 100 mg oral tablet 1 tablet = 100 mg, By Mouth, 2 times a day, for 90 days, with meals, # 180 tablet, 3 Refills, Hard Stop 10/13/19 11:46:27 EDT, 10/18/18 11:46:27 EDT Start Date: 10/18/18 Stop Date: 10/13/19 Status: Ordered Problem List Condition Effective Dates [...] 04/27/07 Active OA (osteoarthritis) of knee(Confirmed) Active *[id number]-[facility] Partn er-Amelia Lechugado(Confirmed) Active 1recurrent sx w Persantine MIBI, cardiac cath w/o CAD- Dr Garcia 2003 2aquatherapy @ [facility] 3Multiple hypodensities within the head of the right 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 had phys therapy but worse 7arms/legs 8distrust and fear of medications. wants to stick with natural treatments 9nasal mask [id number] delmi'd. Severe sleep apnea. 10did not tolerate CPAP. repeat titration pendg. Social History Social History Type Response Smoking Status Never smoker entered on: 04/09/14 Sex
--- OUTSIDE RECORDS SUMMARY | 2022-11-26 21:40 | XMS_ITS | Continuity of Care Document ---
Author Name Unknown Organization [facility] Address [address] [place] [address]- Care Team Providers Care Flag Car Driver Name Role Phone Lisha Lopez MD Primary Care Physician En[place] [facility] [place](s): 02/05/20 - 03/12/[address] [address] Attending Physician: Carlitos Dhillon MD Admitting Physician: Carlitos Dhillon MD Allergies, Adverse Reactions, Alerts Substance Reaction Severity Status morphine Active Contrast Dye Active Immunizations Given and Recorded Vaccine Date Status Refusal Reason diphtheria/tetanus/pertussis, acel(DTaP) 1 12/11/06 Given Meningococcal Polysaccharide Vaccine 2 03/24/97 Gi jamie Not Given Vaccine Date Status Refusal Reason pneumococcal 13-valent vaccine 07/11/16 Not Given Patient Refuses 1Admin Note: vis given. 2Admin Note: 3 shots, exposure at [employer] Medications Aquatherapy Aquatherapy, See Instructions, # 3 box, Refills 11, Tot. Refills 11, Maintenance, aquatherapy bid for 6 weeks; dx=OA knees, 10/26/18 20:22:37 EDT, Compound Start Date: 10/26/18 Status: Ordered aspirin 81 mg oral delayed release tablet 81 mg, By Mouth, Daily, # 30 tablet, Refills 0, Tot. Refills 0, Maintenance, 12/25/19 11:17:00 EDT,Route to Pharmacy Electronically, [facility], 160, cm, 06/27/19 12:15:00 EDT, Height,75, kg, 03/17/19 14:27:00 EST, Dry Weight Start Date: 12/25/19 Status: Ordered cetirizine 10 mg oral tablet 1 tablet = 10 mg, By Mouth, Daily, # 14 tablet, 0 Refills, Maintenance, 03/06/20 16:12:00 EST, [facility] #[id number], Partial fill upon patient request if the prescription is for a schedule II opioid drug., 160, cm, 03/06/20 16:05:00 EST, Height... Start Date: 03/06/20 Stop Date: 03/20/20 Status: Ordered CPAP Equipment See Instructions, # 1 box, Refills 1, Tot. Refills 1, Maintenance, CPAP supplies; Cpap 7mm H20; dx=SHAYY, 06/08/17 12:58:54, Compound Start Date: 06/08/17 Status: Ordered Debrox Earwax Removal Kit 6.5% Otic Solution 5 drops, Ears, Both, 2 times a day, for 4 days, # 15 mL, 1 Refills, Acute 03/13/20 9:46:00 EST, 03/05/20 9:46:00 EST, Otic Solution, [facility] #[id number], Partial fill upon patient request if the prescription is for a schedule II opioid drug.,... Start Date: 03/05/20 Stop Date: 03/13/20 Status: Ordered diclofenac 1% topical gel 1 application, Topically, 4 times a day, not to exceed 8 grams/day/single joint of upper extremities, # 100 Gm, 4 Refills, Maintenance, 03/05/20 9:46:00 EST, Gel, [facility] #[id number], 160, cm, 01/16/20 11:22:00 EDT, Height, 75, kg, 03/17/19 14... Start Date: 03/05/20 Status: Ordered niacin 100 mg oral tablet 1 tablet = 100 mg, By Mouth, 2 times a day, for 90 days, with meals, # 180 tablet, 3 Refills, Hard Stop 10/07/20 11:46:00 EDT, 10/13/19 11:46:00 EDT, [facility] #[id number], 160, cm, 04/20/19 9:45:00 EST, Height, 75, kg, 03/17/19 14:27:00 EST, Start Date: 10/13/19 Stop Date: 10/07/20 Status: Ordered Travatan Z 0.004% ophthalmic solution 1 drops, Topically, Daily before dinner, # 2.5 mL, 1 Refills, Maintenance, 12/25/19 10:53:00 EDT, Solution, [facility], 1 drops Topically Daily [...] knee(Confirmed) Active Pain in toe(Confirmed) 02/18/17 Active *[id number] Care Partn er Gill Sharpe(Confirmed) Active 1recurrent sx w Persantine MIBI, cardiac cath w/o CAD- Dr Garcia 2003 2aquatherapy @ [facility] 3Multiple hypodensities within the head of the right 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 had phys therapy but worse 7arms/legs 8distrust and fear of medications. wants to stick with natural treatments 9nasal mask [id number] delmi'd. Severe sleep apnea. 10did not tolerate CPAP. repeat titration pendg. Social History Social History Type Response Smoking Status Never smoker entered on: 04/09/14 Sex
--- OUTSIDE RECORDS SUMMARY | 2022-11-26 21:40 | XMS_ITS | Continuity of Care Document ---
Author Name Unknown Organization [facility] Address [address] [place] [address]- Care Team Providers Care Locomotive Engineer Diesel Name Role Phone Lisha Lopez MD Primary Care Physician Encounter [facility] [place] Date(s): 03/02/21 - 04/01/[address] [address]- Allergies, Adverse Reactions, Alerts Substance Reaction Severity Status morphine Active Contrast Dye Active Immunizations Given and Recorded Vaccine Date Status Refusal Reason diphtheria/tetanus/pertussis, acel(DTaP) 1 12/11/06 Given Meningococcal Polysaccharide Vaccine 2 03/24/97 Gi jamie Not Given Vaccine Date Status Refusal Reason pneumococcal 13-valent vaccine 07/11/16 Not Given Patient Refuses 1Admin Note: vis given. 2Admin Note: 3 shots, exposure at [employer] Medications Centravites 50 Plus By Mouth, Daily, 0 [...] opioid drug. Start Date: 06/14/20 Status: Ordered diclofenac 1% topical gel 1 application, Topically, 4 times a day, PRN Pain , Mild, Maintenance, 06/15/20 9:35:00 EDT, Gel, Partial fill upon patient request if the prescription is for a schedule II opioid drug. Start Date: 06/15/20 Status: Ordered dorzolamide 2% ophthalmic solution 0 Refills, Maintenance, 06/18/20 10:50:00 EDT, Partial fill upon patient request if the prescription is for a schedule II opioid drug. Start Date: 06/18/20 Status: Ordered Home Blood Pressure Monitor See Instructions, # 1 pack/packet, Maintenance, Digital home BP monitor for daily use; dx= R55;I63.9, 06/18/20 11:52:00 EDT, Supply Start Date: 06/18/20 Status: Ordered Oxygen Supplies See Instructions, # 1 pack/packet, Refills 11, Tot. Refills 11, Maintenance, Nocturnal O2 at 2L/m; dx SHAYY severe, unable to tolerate CPAP, 07/18/20 9:40:00 EDT, Supply Start Date: 07/18/20 Status: Ordered Vitamin C 500 mg oral tablet 1 tablet = 500 mg, By Mouth, Daily, 0 Refills, Maintenance, 06/14/20 15:48:00 EST, Partial fill upon patient request if the prescription is for a schedule II opioid drug. Start Date: 06/14/20 Status: Ordered Vitamin D3 oral tablet 2 tablet = 800 International_Units, By Mouth, Daily, total of 2000 IU, 0 Refills, Maintenance, 06/14/20 15:50:00 EST, Partial fill upon patient request if the prescription is for a schedule II opioiddrug. Start Date: 06/14/20 Status: Ordered Zioptan 0.0015% ophthalmic solution 1 [...] of R caudat e nucleus(Confirmed) 2009 Active Multinodular goiter(Confirmed) Active Noncompliance with medicatio n regimen(Confirmed) 3 Active Obesity (BMI 30.0-34.9)(Confirmed) Active SHAYY - Obstructive sleep apnea(Confirmed) 4, 5 04/27/07 Active OA (osteoarthritis) of knee(Confirmed) Active *[id number] Care Partn er Gill Sharpe(Confirmed) Active Type 2 diabetes mellitus(Confirmed) Active 1aquatherapy @ [facility] 2fear and mistrust of medications 3distrust and fear of medications. wants to stick with natural treatments 4nasal mask [id number] delmi'd. Severe sleep apnea. 5did not tolerate CPAP. repeat titration pendg. Social History Social History Type Response Smoking Status Never smoker entered on: 04/09/14 Sex
--- OUTSIDE RECORDS SUMMARY | 2022-11-26 21:40 | XMS_ITS | Continuity of Care Document ---
Author Name Unknown Organization [facility] Address [address] [place] [address]- Care Team Providers Care Terra Cotta Mason Name Role Phone Lisha Lopez MD Primary Care Physician Encounter [facility] [id number] Date(s): 06/03/21 - 07/03/[address] [address]- Attending Physician: Holden Rosario Admitting Physician: Holden Rosario Referring Physician: AdmtrHolden Allergies, Adverse Reactions, Alerts Substance Reaction Severity Status morphine Active Contrast Dye Active Immunizations Given and Recorded Vaccine Date Status Refusal Reason diphtheria/tetanus/pertussis, acel(DTaP) 1 12/11/06 Given Meningococcal Polysaccharide Vaccine 2 03/24/97 Gi jamie Not Given Vaccine Date Status Refusal Reason pneumococcal 13-valent vaccine 07/11/16 Not Given Patient Refuses 1Admin Note: vis given. 2Admin Note: 3 shots, exposure at [employer] Medications acetaminophen-codeine 300 mg-30 mg oral tablet 1, tablet, By Mouth, Every 6 hours, PRN, not to exceed 4000 mg acetaminophen per day; dx= ligament tear foot and ankle, # 24 tablet, Refills 1, Tot. Refills 1, Acute, severe pain, 07/04/22 10:08:00 EDT, 05/06/21 10:07:00 EST, Route to Pharmacy Electro... Start Date: 05/06/21 Stop Date: 07/04/22 Status: Ordered Centravites 50 Plus By Mouth, [...] 1 application, Topically, 4 times a day, # 100 Gm, 0 Refills, Maintenance, 04/17/21 16:38:00 EST, Gel, [id number], Partial fill upon patient request if the prescription is for a schedule II opioid drug., 160, cm, 04/17/21 16:33:00 EST... Start Date: 04/17/21 Status: Ordered dorzolamide 2% ophthalmic solution 0 Refills, Maintenance, 06/18/20 10:50:00 EDT, Partial fill upon patient request if the prescription is for a schedule II opioid drug. Start Date: 06/18/20 Status: Ordered Home Blood Pressure Monitor See Instructions, # 1 pack/packet, Maintenance, Digital home BP monitor for daily use; dx= R55;I63.9, 06/18/20 11:52:00 EDT, Supply Start Date: 06/18/20 Status: Ordered Home Blood Pressure Monitor See Instructions, # 1 each, Maintenance, digital BP cuff for daily monitoring; dx=HTN, DM, 04/08/2211:33:00 EST, Supply Start Date: 04/08/21 Status: Ordered Oxygen Supplies See Instructions, # [...] 04/27/07 Active OA (osteoarthritis) of knee(Confirmed) Active *[id number] Care Partn er Gill Sharpe(Confirmed) Active Type 2 diabetes mellitus(Confirmed) Active 1aquatherapy @ [facility] 2fear and mistrust of medications 3distrust and fear of medications. wants to stick with natural treatments 4nasal mask [id number] delmi'd. Severe sleep apnea. 5did not tolerate CPAP. repeat titration pendg. Social History Social History Type Response Smoking Status Never smoker entered on: 04/09/14 Sex
--- OUTSIDE RECORDS SUMMARY | 2022-11-26 21:40 | XMS_ITS | Continuity of Care Document ---
Author Name Unknown Organization [facility] Address [address] [place] [address]- Care Team Providers Care Volunteer Assistant Name Role Phone Lisha Lopez MD Primary Care Physician Encounter [facility] Date(s): 07/25/20 - 08/24/[address] [address]- Allergies, Adverse Reactions, Alerts Substance Reaction Severity Status morphine Active Contrast Dye Active Immunizations Given and Recorded Vaccine Date Status Refusal Reason diphtheria/tetanus/pertussis, acel(DTaP) 1 12/11/06 Given Meningococcal Polysaccharide Vaccine 2 03/24/97 Gi jamie Not Given Vaccine Date Status Refusal Reason pneumococcal 13-valent vaccine 07/11/16 Not Given Patient Refuses 1Admin Note: vis given. 2Admin Note: 3 shots, exposure at [employer] Medications acetaminophen 325 mg oral tablet 650 mg, By Mouth, Every 4 hours, PRN, Temperature Greater than 100.5, Refills 0, Maintenance, Pain , Mild, 06/15/20 18:28:00 EDT, Partial fill upon patient request if the prescription is for a schedule II opioid drug. Start Date: 06/15/20 Status: Ordered Centravites 50 Plus By Mouth, [...] drops, Eyes, Both, Daily in PM, per opt, # 3 mL, 0 Refills, Maintenance, 01/16/20 [...] 04/27/07 Active OA (osteoarthritis) of knee(Confirmed) Active *[id number] Care Partn rita Garland Annemarie(Confirmed) Active Type 2 diabetes mellitus(Confirmed) Active 1aquatherapy @ [facility] 2fear and mistrust of medications 3distrust and fear of medications. wants to stick with natural treatments 4nasal mask [id number] delmi'd. Severe sleep apnea. 5did not tolerate CPAP. repeat titration pendg. Social History Social History Type Response Smoking Status Never smoker entered on: 04/09/14 Sex
--- OUTSIDE RECORDS SUMMARY | 2022-11-26 21:40 | XMS_ITS | Continuity of Care Document ---
Author Name Unknown Organization [facility] Address [address] [place] [address]- Care Team Providers Care Back Tufter Name Role Phone Lisha Lopez MD Primary Care Physician Encounter [facility] [id number] Date(s): 09/04/21 - 10/04/[address] [address]- Allergies, Adverse Reactions, Alerts Substance Reaction Severity Status Contrast Dye Active morphine Active Immunizations Given and Recorded Vaccine Date Status Refusal Reason diphtheria/tetanus/pertussis, acel(DTaP) 1 12/11/06 Given Meningococcal Polysaccharide Vaccine 2 03/24/97 Gi jamie Not Given Vaccine Date Status Refusal Reason pneumococcal 13-valent vaccine 07/11/16 Not Given Patient Refuses 1Admin Note: vis given. 2Admin Note: 3 shots, exposure at [employer] Medications albendazole 200 mg oral tablet 2 tablet = 400 mg, By Mouth, Once, with meals; may repeat in 2 weeks, # 4 tablet, 0 Refills, Soft Stop, 09/09/21 11:45:00 EDT, Tablet, [facility] #[id number], Partial fill upon patient request if the [...] Refills, Maintenance, 08/14/21 10:31:00 EDT, Gel, [facility], Partial fill upon patient request if the prescription is for a schedule II opioid drug., 160, cm, ... Start Date: 08/14/21 Status: Ordered Home Blood [...] 04/27/07 Active OA (osteoarthritis) of knee(Confirmed) Active *[id number] Care Partn rita Sharpe(Confirmed) Active Type 2 diabetes mellitus(Confirmed) Active 1aquatherapy @ [facility] 2fear and mistrust of medications 3distrust and fear of medications. wants to stick with natural treatments 4nasal mask [id number] delmi'd. Severe sleep apnea. 5did not tolerate CPAP. repeat titration pendg. Social History Social History Type Response Smoking Status Never smoker entered on: 04/09/14 Sex
--- OUTSIDE RECORDS SUMMARY | 2022-11-26 21:40 | XMS_ITS | Continuity of Care Document ---
Author Name Unknown Organization [facility] Address [address] [place] [address]- Care Team Providers Care Social Services Specialist Name Role Phone Lisha Lopez MD Primary Care Physician [place] [facility](s[place] 03/05/20 - 04/23/[address] [address]- Attending Physician: Lisha Lopez MD Admitting Physician: Lisha Lopez MD Allergies, Adverse Reactions, Alerts Substance Reaction Severity Status morphine Active Contrast Dye Active Immunizations Given and Recorded Vaccine Date Status Refusal Reason diphtheria/tetanus/pertussis, acel(DTaP) 1 12/11/06 Given Meningococcal Polysaccharide Vaccine 2 03/24/97 Gi jamie Not Given Vaccine Date Status Refusal Reason pneumococcal 13-valent vaccine 07/11/16 Not Given Patient Refuses 1Admin Note: vis given. 2Admin Note: 3 shots, exposure at [employer] Medications Aquatherapy Aquatherapy, See Instructions, # 3 box, Refills 11, Tot. Refills 11, Maintenance, aquatherapy bid for 6 weeks; dx=OA knees, 10/26/18 20:22:37 EDT, Compound Start Date: 10/26/18 Status: Ordered aspirin 81 mg oral delayed release tablet 81 mg, By Mouth, Daily, # 30 tablet, Refills 0, Tot. Refills 0, Maintenance, 12/25/19 11:17:00 EDT,Route to Pharmacy Electronically, [facility], 160, cm, 06/27/19 12:15:00 EDT, Height,75, kg, 03/17/19 14:27:00 EST, Dry Weight Start Date: 12/25/19 Status: Ordered cetirizine 10 mg oral tablet 1 tablet = 10 mg, By Mouth, Daily, # 14 tablet, 0 Refills, Maintenance, 03/06/20 16:12:00 EST, [facility] #[id number], Partial fill upon patient request if the [...] 4 Refills, Maintenance, 03/05/20 9:46:00 EST, Gel, [facility] #[id number], 160, cm, 01/16/20 11:22:00 EDT, Height, 75, kg, 03/17/19 14... Start Date: 03/05/20 Status: Ordered niacin 100 mg oral tablet 1 tablet = 100 mg, By Mouth, 2 times a day, for 90 days, with meals, # 180 tablet, 3 Refills, Hard Stop 10/07/20 11:46:00 EDT, 10/13/19 11:46:00 EDT, [facility] #[id number], 160, cm, 04/20/19 9:45:00 EST, Height, 75, kg, 03/17/19 14:27:00 EST, [facility] Start Date: 10/13/19 Stop Date: 10/07/20 Status: Ordered Travatan Z 0.004% ophthalmic solution 1 drops, Topically, Daily before dinner, # 2.5 mL, 1 Refills, Maintenance, 12/25/19 10:53:00 EDT, Solution, [facility], 1 drops Topically Daily before dinner, [...] knee(Confirmed) Active Pain in toe(Confirmed) 02/18/17 Active *[id number] Care Partn er Gill Annemarie(Confirmed) Active 1recurrent sx w Persantine MIBI, cardiac cath w/o CAD- Dr Garcia 2003 2aquatherapy @ [facility] 3Multiple hypodensities within the head of the right 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 had phys therapy but worse 7arms/legs 8distrust and fear of medications. wants to stick with natural treatments 9nasal mask [id number] delmi'd. Severe sleep apnea. 10did not tolerate CPAP. repeat titration pendg. Social History Social History Type Response Smoking Status Never smoker entered on: 04/09/14 Sex
--- OUTSIDE RECORDS SUMMARY | 2022-11-26 21:40 | XMS_ITS | Continuity of Care Document ---
Author Name Unknown Organization [facility] Address [address] [place] [address]- Care Team Providers Care Trauma Coordinator Name Role Phone Lisha Lopez MD Primary Care Physician Encounter [facility] [place] Date(s): 08/21/21 - 09/20/[address] [address]- Allergies, Adverse Reactions, Alerts Substance Reaction Severity Status morphine Active Contrast Dye Active Immunizations Given and Recorded Vaccine Date Status Refusal Reason diphtheria/tetanus/pertussis, acel(DTaP) 1 12/11/06 Given Meningococcal Polysaccharide Vaccine 2 03/24/97 Gi jamie Not Given Vaccine Date Status Refusal Reason pneumococcal 13-valent vaccine 07/11/16 Not Given Patient Refuses 1Admin Note: vis given. 2Admin Note: 3 shots, exposure at [employer] Medications albendazole 200 mg oral tablet 2 tablet = 400 mg, By Mouth, Once, with meals; may repeat in 2 weeks, # 4 tablet, 0 Refills, Soft Stop, 09/09/21 11:45:00 EDT, Tablet, [facility] #[id number], Partial fill upon patient request if the [...] 0 Refills, Maintenance, 08/14/21 10:31:00 EDT, Gel, [facility] 3, Partial fill upon patient request [...] 04/27/07 Active OA (osteoarthritis) of knee(Confirmed) Active *[phone] Care Partn er Gill Sharpe(Confirmed) Active Type 2 diabetes mellitus(Confirmed) Active 1aquatherapy @ [facility] 2fear and mistrust of medications 3distrust and fear of medications. wants to stick with natural treatments 4nasal mask [id number] delmi'd. Severe sleep apnea. 5did not tolerate CPAP. repeat titration pendg. Social History Social History Type Response Smoking Status Never smoker entered on: 04/09/14 Sex
--- OUTSIDE RECORDS SUMMARY | 2022-11-26 21:40 | XMS_ITS | Continuity of Care Document ---
Author Name Unknown Organization [facility] Address [address] [place] [address]- Care Team Providers Care Customer Success Manager Name Role Phone Lisha Lopez MD Primary Care Physician Encounter [facility] Date(s): 08/07/20 - 09/06/[address] [address]- Allergies, Adverse Reactions, Alerts Substance Reaction Severity Status morphine Active Contrast Dye Active Immunizations Given and Recorded Vaccine Date Status Refusal Reason diphtheria/tetanus/pertussis, acel(DTaP) 1 12/11/06 Given Meningococcal Polysaccharide Vaccine 2 03/24/97 Gi jamie Not Given Vaccine Date Status Refusal Reason pneumococcal 13-valent vaccine 07/11/16 Not Given Patient Refuses 1Admin Note: vis given. 2Admin Note: 3 shots, exposure at [employer] Medications acetaminophen 325 mg oral tablet 650 [...] 04/27/07 Active OA (osteoarthritis) of knee(Confirmed) Active *[id number] Care Partn rita Garland Annemarie(Confirmed) Active Type 2 diabetes mellitus(Confirmed) Active 1aquatherapy @ [facility] 2fear and mistrust of medications 3distrust and fear of medications. wants to stick with natural treatments 4nasal mask [id number] delmi'd. Severe sleep apnea. 5did not tolerate CPAP. repeat titration pendg. Social History Social History Type Response Smoking Status Never smoker entered on: 04/09/14 Sex
--- OUTSIDE RECORDS SUMMARY | 2022-11-26 21:40 | XMS_ITS | Continuity of Care Document ---
Author Name Unknown Organization [facility] Address [address] [place] [address]- Care Team Providers Care Gunner'S Mate M Name Role Phone Lisha Lopez MD Primary Care Physician Encounter [facility] Date(s): 08/11/21 - 08/14/[address] [address] Discharge Disposition: A-D/C Home Attending Physician: Kasandra Harry MD Admitting Physician: Janeth Wakefield MD Referring Physician: Not on Staff, Referring MD Allergies, Adverse Reactions, Alerts Substance Reaction Severity Status morphine Active Contrast Dye Active Immunizations Given and Recorded Vaccine Date Status Refusal Reason diphtheria/tetanus/pertussis, acel(DTaP) 1 12/11/06 Given Meningococcal Polysaccharide Vaccine 2 03/24/97 Gi jamie Not Given Vaccine Date Status Refusal Reason pneumococcal 13-valent vaccine 07/11/16 Not Given Patient Refuses 1Admin Note: vis given. 2Admin Note: 3 shots, exposure at [employer] Medications B 100 Complex 1 tablet, By [...] opioid drug. Start Date: 06/14/20 Status: Ordered Codeine 30mg/Acetaminophen 300mg Tablet 1 tablet, Tablet, By Mouth, Every 6 hours, PRN for Pain , Moderate, Routine, 08/12/21 13:05:00 EDT Start Date: 08/12/21 Stop Date: 08/15/21 Status: Discontinued commode commode, See Instructions, # 1 each, Refills 0, Tot. Refills 0, Maintenance, Bedside commode, 08/14/21 10:17:00 EDT, Compound Start Date: 08/14/21 Status: Ordered diclofenac 1% topical gel 1 application, Topically, 4 times a day, PRN Pain , Moderate, # 100 Gm, 0 Refills, Maintenance, 08/14/21 10:31:00 EDT, Gel, [facility], Partial fill upon patient [...] 04/27/07 Active OA (osteoarthritis) of knee(Confirmed) Active *[id number] Care Partn er Gill Annemarie(Confirmed) Active Type 2 diabetes mellitus(Confirmed) Active 1aquatherapy @ [facility] 2fear and mistrust of medications 3distrust and fear of medications. wants to stick with natural treatments 4nasal mask [id number] delmi'd. Severe sleep apnea. 5did not tolerate CPAP. repeat titration pendg. Results Radiology Reports * Exam Date Time Procedure Performing Provider Status 08/12/21 3:46 AM Knee 1 or 2 Views Right Bridget , All cleo; Auth (Verified) Notes: (Knee 1 or 2 Views Right) Reason For Exam: with Pain;Trauma RESULT: Knee 1 or 2 Views Right Knee 1 or 2 Views Right, 2 views HX OF PRESENT ILLNESS: pt c o R knee to calf pain progressively getting worse since Tuesday. pt alsoc o R sided chest pain, SOB with exertion and fatigue. denies cough but reports increased mucus in throat.; Reason: Trauma; with Pain; Clinical Question(s): Fracture COMPARISON: 06/13/2020 FINDINGS: There is no evidence of acute or healing fracture, dislocation or bone lesion. Mild tricompartmental degenerative osteoarthritis but no evidence of osteochondral defect or intra-articular loose body. No significant joint effusion. There are atherosclerotic vascular calcifications. IMPRESSION: Osteoarthritis. No evidence of acute osseous abnormality. WSN: [id number] Ordering Physician: Katie Castano Dictated By: Lazarus Potts MD Dictated Date/Time: 08/12/21 7:35 am Reviewed By: Lazarus Potts MD Signed By: Lazarus Potts MD Signed Date/Time: 08/12/21 7:35 am Transcribed By: LORENA Transcribed Date/Time: 08/12/21 7:34 am * Exam Date Time Procedure Performing Provider Status 08/11/21 5:03 PM Chest 2 Views Frontal and Lat Eric Lainez; Tanvir (Verified) Notes: (Chest 2 Views Frontal and Lat) Reason For Exam: Chest Pain;Other: RESULT: Chest 2 Views Frontal and Lat Chest 2 Views Frontal and Lat Hx of Present Illness: pt c o R knee to calf pain progessively getting worse since tuesday. pt also c o R sided chest pain, SOB with exertion and fatigue. denies cough but reports increased mucus in throat.; Reason: Other:; Chest Pain; Clinical Question(s): Other: COMPARISON: None. FINDINGS: LINES AND TUBES: None. LUNGS AND PLEURA: No airspace opacity or volume loss. Mild prominence of central vascularity without edema. No pleural effusion. No pneumothorax. HEART, MEDIASTINUM AND SINDI: Heart is at the upper limits of normal for size. There is a retrocardiac density consistent with a small hiatal hernia. BONES AND SOFT TISSUES: No acute abnormality. IMPRESSION: Borderline cardiac enlargement and mild vascular congestion without overt CHF. No pneumonia. Small hiatal hernia. WSN: [id number] Ordering Physician: Juan Antonio Blas Dictated By: Lazarus Cruz MD Dictated Date/Time: 08/11/21 5:10 pm Reviewed By: Lazarus Cruz MD Signed By: Lazarus Cruz MD Signed Date/Time: 08/11/21 5:10 pm Transcribed By: LORENA Transcribed Date/Time: 08/11/21 5:09 pm Vital Signs Most recent to oldest [Reference Range]: 1 2 3 Height 160 cm (08/14/21 10:36 AM) 160 cm (08/14/21 7:27 AM) 160 cm (08/13/21 3:49 PM) Weight 74.5 kg (08/12/21 9:12 PM) Oxygen Saturation [94-100 %] 99 % (08/14/21 10:36 AM) 99 % (08/14/21 7:27 AM) 100 % (08/14/21 3:00 AM) Pulse Rate [55-90 bpm] 71 bpm (08/14/21 10:36 AM) 58 bpm (08/14/21 7:27 AM) 57 bpm (08/14/21 3:00 AM) Body Mass Index [18.5-24.99] 29.1 *H* (08/12/21 9:12 PM) Blood Pressure [90-138/55-84 mm Hg] 172/76mm Hg *H* (08/14/21 10:36 AM) 170/75mm Hg *H* (08/14/21 7:27 AM) 157/76mm Hg *H* (08/14/21 3:00 AM) Respiratory Rate [16-30 br/min] 18 br/min (08/14/21 1:40 PM) 20 br/min (08/14/21 10:36 AM) 18 br/min (08/14/21 10:09 AM) Temperature [96.8-100.4 DegF] 97.2 DegF (08/14/21 7:27 AM) 97.8 DegF (08/14/21 3:00 AM) 97.9 DegF (08/13/21 11:00 PM) Mode of Delivery (Oxygen) Room air (08/14/21 10:36 AM) Room air (08/14/21 7:27 AM) Room air (08/14/21 3:00 AM) Blood pressure sites Arm, right (08/14/21 7:27 AM) Arm, left (08/14/21 3:00 AM) Arm, left (08/13/21 11:00 PM) Temperature Route Oral (5/13/22 7:27 AM) Oral (08/14/21 3:00 AM) Oral (08/13/21 11:00 PM) Dry Weight 74.5 kg (08/12/21 9:12 PM) Social History Social History Type Response Smoking Status Never smoker entered on: 04/09/14 Sex
--- OUTSIDE RECORDS SUMMARY | 2022-11-26 21:40 | XMS_ITS | Continuity of Care Document ---
Author Name Unknown Organization [facility] Address [address] [place] [address]- Care Team Providers Care Intermediate School Teacher Name Role Phone Lisha Lopez MD Primary Care Physician [place] [facility]/18[place]20 - 09/17/[address] [address]- Allergies, Adverse Reactions, Alerts Substance Reaction Severity Status morphine Active Contrast Dye Active Immunizations Given and Recorded Vaccine Date Status Refusal Reason diphtheria/tetanus/pertussis, acel(DTaP) 1 12/11/06 Given Meningococcal Polysaccharide Vaccine 2 03/24/97 Gi jamie Not Given Vaccine Date Status Refusal Reason pneumococcal 13-valent vaccine 07/11/16 Not Given Patient Refuses 1Admin Note: vis given. 2Admin Note: 3 shots, exposure at [employer] Medications acetaminophen 325 mg oral tablet 650 [...] 04/27/07 Active OA (osteoarthritis) of knee(Confirmed) Active *[id number] Care Partn rita Garland Annemarie(Confirmed) Active Type 2 diabetes mellitus(Confirmed) Active 1aquatherapy @ [facility] 2fear and mistrust of medications 3distrust and fear of medications. wants to stick with natural treatments 4nasal mask [id number] delmi'd. Severe sleep apnea. 5did not tolerate CPAP. repeat titration pendg. Social History Social History Type Response Smoking Status Never smoker entered on: 04/09/14 Sex
--- OUTSIDE RECORDS SUMMARY | 2022-11-26 21:40 | XMS_ITS | Continuity of Care Document ---
Author Name Unknown Organization [facility] Address [address] [place] [address]- Care Team Providers Care Can Solderer Name Role Phone Lisha Lopez MD Primary Care Physician Encounter [facility] [place] Date(s): 04/27/19 - 05/04/19 [facility] [address] [place] [address]- [place] Attending Physician: Celia Yates NP Referring Physician: Lisha Lopez MD Allergies, Adverse [...] given. 2Admin Note: 3 shots, exposure at [employer] Medications Aquatherapy Aquatherapy, See Instructions, # 3 [...] 4 Refills, Maintenance, 03/26/19 17:07:00 EST, Gel, [facility] #[id number], 160, cm, 03/26/19 16:28:00 EST, Height, 75, kg, 03/17/19... Start Date: 03/26/19 Status: Ordered niacin 100 mg oral tablet 1 tablet = 100 mg, By Mouth, 2 times a day, for 90 days, with meals, # 180 tablet, 3 Refills, Hard Stop 10/07/20 11:46:00 EDT, 10/13/19 11:46:00 [id number], 160, cm, 04/20/19 9:45:00 EST, Height, 75, kg, 03/17/19 14:27:00 ESTDr... Start Date: 10/13/19 Stop Date: 10/07/20 Status: Ordered niacin 100 mg oral tablet 1 tablet = 100 mg, By Mouth, 2 times a day, for 90 days, with meals, # 180 tablet, 3 Refills, Hard Stop 10/13/19 11:46:27 EDT, 10/18/18 11:46:27 EDT Start Date: 10/18/18 Stop Date: 10/13/19 Status: Ordered Problem List Condition Effective Dates Status Health Status Inform ant Chest pain(Confirmed) 1 Active Chronic back pain(Confirmed) [...] 04/27/07 Active OA (osteoarthritis) of knee(Confirmed) Active *[id number]-[facility] Partn er-Amelia Mueller(Confirmed) Active 1recurrent sx w Persantine MIBI, [...] to stick with natural treatments 9nasal mask [id number] delmi'd. Severe sleep apnea. 10did not tolerate CPAP. repeat titration pendg. Vital Signs Most recent to oldest [Reference Range]: 1 2 Height 160 cm (04/27/19 6:10 PM) 160 cm (04/27/19 11:48 AM) Weight 75.6 kg (04/27/19 6:10 PM) 75.6 kg (04/27/19 11:48 AM) Oxygen Saturation [94-100 %] 98 % (04/27/19 11:48 AM) Pulse Rate [55-90 bpm] 67 bpm (04/27/19 11:48 AM) Body Mass Index [18.5-24.99] 29.53 *H* (04/27/19 11:48 AM) Blood Pressure [90-138/55-84 mm Hg] 158/ 82mm Hg *H* (04/27/19 11:48 AM) Mode of Delivery (Oxygen) Room air (04/27/19 11:48 AM) Blood pressure sites Arm, left (04/27/19 11:48 AM) Weight Obtained Via Standing scale (04/27/19 11:48 AM) Social History Social History Type Response Smoking Status Never smoker entered on: 04/09/14 Sex
--- OUTSIDE RECORDS SUMMARY | 2022-11-26 21:40 | XMS_ITS | Continuity of Care Document ---
Author Name Unknown Organization [facility] Address [address] [place] [address]- Care Team Providers Care Welfare Project Manager Name Role Phone Lisha Lopez MD Primary Care Physician Encounter [facility] [place] Date(s): 08/25/21 - 11/22/[address] [address] Attending Physician: Carlitos Dhillon MD Admitting [...] given. 2Admin Note: 3 shots, exposure at [employer] Medications albendazole 200 mg oral tablet 2 tablet = 400 mg, By Mouth, Once, with meals; may repeat in 2 weeks, # 4 tablet, 0 Refills, Soft Stop, 09/09/21 11:45:00 EDT, Tablet, [facility] #[id number], Partial fill upon patient request if the [...] 0 Refills, Maintenance, 08/14/21 10:31:00 EDT, [facility], Partial fill upon patient [...] 04/27/07 Active OA (osteoarthritis) of knee(Confirmed) Active *[id number] Care Partn er Gill Sharpe(Confirmed) Active Type 2 diabetes mellitus(Confirmed) Active 1aquatherapy @ [facility] 2fear and mistrust of medications 3distrust and fear of medications. wants to stick with natural treatments 4nasal mask [id number] delmi'd. Severe sleep apnea. 5did not tolerate CPAP. repeat titration pendg. Social History Social History Type Response Smoking Status Never smoker entered on: 04/09/14 Sex
--- OUTSIDE RECORDS SUMMARY | 2022-11-26 21:40 | XMS_ITS | Continuity of Care Document ---
Author Name Unknown Organization [facility] Address [address] [place] [address]- Care Team Providers Care Wash Box Operator Name Role Phone Lisha Lopez MD Primary Care Physician [place] [facility] [place]12[place] - 09/11/[address] [address]- Allergies, Adverse Reactions, Alerts Substance Reaction Severity Status morphine Active Contrast Dye Active Immunizations Given and Recorded Vaccine Date Status Refusal Reason diphtheria/tetanus/pertussis, acel(DTaP) 1 12/11/06 Given Meningococcal Polysaccharide Vaccine 2 03/24/97 Gi jamie Not Given Vaccine Date Status Refusal Reason pneumococcal 13-valent vaccine 07/11/16 Not Given Patient Refuses 1Admin Note: vis given. 2Admin Note: 3 shots, exposure at [employer] Medications acetaminophen 325 mg oral tablet 650 [...] 04/27/07 Active OA (osteoarthritis) of knee(Confirmed) Active *[id number] Care Partn er Gill Sharpe(Confirmed) Active Type 2 diabetes mellitus(Confirmed) Active 1aquatherapy @ [facility] 2fear and mistrust of medications 3distrust and fear of medications. wants to stick with natural treatments 4nasal mask [id number] delmi'd. Severe sleep apnea. 5did not tolerate CPAP. repeat titration pendg. Social History Social History Type Response Smoking Status Never smoker entered on: 04/09/14 Sex
--- OUTSIDE RECORDS SUMMARY | 2022-11-26 21:40 | XMS_ITS | Continuity of Care Document ---
Author Name Unknown Organization [facility] Address [address] [place] [address]- Care Team Providers Care Assistant Credit Manager Name Role Phone Lisha Lopez MD Primary Care Physician [place] [facility] [place] 04/26/19 - 07/27/[address] [address]- [place] Attending Physician: Lisha Lopez MD Admitting Physician: Lisha Lopez MD Referring Physician: Lisha Lopez MD Allergies, [...] given. 2Admin Note: 3 shots, exposure at [employer] Medications Aquatherapy Aquatherapy, See Instructions, # 3 [...] 4 Refills, Maintenance, 03/26/19 17:07:00 EST, Gel, [facility] #[id number], 160, cm, 03/26/19 16:28:00 EST, Height, 75, kg, 03/17/19... Start Date: 03/26/19 Status: Ordered niacin 100 mg oral tablet 1 tablet = 100 mg, By Mouth, 2 times a day, for 90 days, with meals, # 180 tablet, 3 Refills, Hard Stop 10/07/20 11:46:00 EDT, 10/13/19 11:46:00 EDT, [facility] #[id number], 160, cm, 04/20/19 9:45:00 EST, Height, 75, [...] 04/27/07 Active OA (osteoarthritis) of knee(Confirmed) Active *[id number]-[facility] Partn er-Amelia Lechugado(Confirmed) Active 1recurrent sx w Persantine MIBI, cardiac cath w/o CAD- Dr Garcia 2003 2aquatherapy @ 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 had phys therapy but worse 7arms/legs 8distrust and fear of medications. wants to stick with natural treatments 9nasal mask [id number] delmi'd. Severe sleep apnea. 10did not tolerate CPAP. repeat titration pendg. Social History Social History Type Response Smoking Status Never smoker entered on: 04/09/14 Sex
--- OUTSIDE RECORDS SUMMARY | 2022-11-26 21:40 | XMS_ITS | Continuity of Care Document ---
Author Name Unknown Organization [facility] Address [address] [place] [address]- Care Team Providers Care Customer Order Clerk Name Role Phone Lisha Lopez MD Primary Care Physician [place] [facility] [place]03[place] - 09/02/[address] [address]- Allergies, Adverse Reactions, Alerts Substance Reaction Severity Status morphine Active Contrast Dye Active Immunizations Given and Recorded Vaccine Date Status Refusal Reason diphtheria/tetanus/pertussis, acel(DTaP) 1 12/11/06 Given Meningococcal Polysaccharide Vaccine 2 03/24/97 Gi jamie Not Given Vaccine Date Status Refusal Reason pneumococcal 13-valent vaccine 07/11/16 Not Given Patient Refuses 1Admin Note: vis given. 2Admin Note: 3 shots, exposure at [employer] Medications Always Incontinence briefs Always Incontinence [...] 0 Refills, Maintenance, 08/14/21 10:31:00 EDT, Gel, [facility], Partial fill upon patient [...] 04/27/07 Active OA (osteoarthritis) of knee(Confirmed) Active *[id number] Care Partn rita Sharpe(Confirmed) Active Type 2 diabetes mellitus(Confirmed) Active 1aquatherapy @ [facility] 2fear and mistrust of medications 3distrust and fear of medications. wants to stick with natural treatments 4nasal mask [id number] delmi'd. Severe sleep apnea. 5did not tolerate CPAP. repeat titration pendg. Social History Social History Type Response Smoking Status Never smoker entered on: 04/09/14 Sex
--- OUTSIDE RECORDS SUMMARY | 2022-11-26 21:41 | XMS_ITS | Continuity of Care Document ---
Author Name Unknown Organization [facility] Address [address] [place] [address]- Care Team Providers Care Supervisor [employer] Name Role Phone Lisha Lopez MD Primary Care Physician En[place] [facility] [place] Date(s): 11/14/20 - 12/14/[address] [address]- Allergies, Adverse Reactions, Alerts Substance Reaction Severity Status morphine Active Contrast Dye Active Immunizations Given and Recorded Vaccine Date Status Refusal Reason diphtheria/tetanus/pertussis, acel(DTaP) 1 12/11/06 Given Meningococcal Polysaccharide Vaccine 2 03/24/97 Gi jamie Not Given Vaccine Date Status Refusal Reason pneumococcal 13-valent vaccine 07/11/16 Not Given Patient Refuses 1Admin Note: vis given. 2Admin Note: 3 shots, exposure at [employer] Medications acetaminophen 325 mg oral tablet 650 [...] 04/27/07 Active OA (osteoarthritis) of knee(Confirmed) Active *[id number] Care Partn er Gill Annemarie(Confirmed) Active Type 2 diabetes mellitus(Confirmed) Active 1aquatherapy @ [facility] 2fear and mistrust of medications 3distrust and fear of medications. wants to stick with natural treatments 4nasal mask [id number] delmi'd. Severe sleep apnea. 5did not tolerate CPAP. repeat titration pendg. Social History Social History Type Response Smoking Status Never smoker entered on: 04/09/14 Sex
--- OUTSIDE RECORDS SUMMARY | 2022-11-26 21:41 | XMS_ITS | Continuity of Care Document ---
Author Name Unknown Organization [facility] Address [address] [place] [address]- Care Team Providers Care Software Testing Specialist Name Role Phone Lisha Lopez MD Primary Care Physician Encounter [facility] Date(s): 07/28/21 - 08/27/[address] [address]- Allergies, Adverse Reactions, Alerts Substance Reaction Severity Status morphine Active Contrast Dye Active Immunizations Given and Recorded Vaccine Date Status Refusal Reason diphtheria/tetanus/pertussis, acel(DTaP) 1 12/11/06 Given Meningococcal Polysaccharide Vaccine 2 03/24/97 Gi jamie Not Given Vaccine Date Status Refusal Reason pneumococcal 13-valent vaccine 07/11/16 Not Given Patient Refuses 1Admin Note: vis given. 2Admin Note: 3 shots, exposure at [employer] Medications B 100 Complex 1 tablet, By [...] 0 Refills, Maintenance, 08/14/21 10:31:00 EDT, Gel, [facility], Partial fill upon patient [...] 04/27/07 Active OA (osteoarthritis) of knee(Confirmed) Active *[id number] Care Partn er Gill Sharpe(Confirmed) Active Type 2 diabetes mellitus(Confirmed) Active 1aquatherapy @ [facility] 2fear and mistrust of medications 3distrust and fear of medications. wants to stick with natural treatments 4nasal mask [id number] delmi'd. Severe sleep apnea. 5did not tolerate CPAP. repeat titration pendg. Social History Social History Type Response Smoking Status Never smoker entered on: 04/09/14 Sex
--- OUTSIDE RECORDS SUMMARY | 2022-11-26 21:41 | XMS_ITS | Continuity of Care Document ---
Author Name Unknown Organization [facility] Address [address] [place] [address]- Care Team Providers Care Landing Signal Officer Name Role Phone Jessica STOCK, Lisha Primary Care Physician En[place] [facility] [place] Date(s): 04/07/21 - 05/07/21 [facility] [address] [place] [address]- Allergies, Adverse Reactions, Alerts Substance Reaction Severity Status morphine Active Contrast Dye Active Immunizations Given and Recorded Vaccine Date Status Refusal Reason diphtheria/tetanus/pertussis, acel(DTaP) 1 12/11/06 Given Meningococcal Polysaccharide Vaccine 2 03/24/97 Gi jamie Not Given Vaccine Date Status Refusal Reason pneumococcal 13-valent vaccine 07/11/16 Not Given Patient Refuses 1Admin Note: vis given. 2Admin Note: 3 shots, exposure at [employer] Medications acetaminophen-codeine 300 mg-30 mg oral tablet [...] 0 Refills, Maintenance, 04/17/21 16:38:00 EST, Gel, [facility] #[id number], Partial fill upon patient request if the [...] 04/27/07 Active OA (osteoarthritis) of knee(Confirmed) Active *[id number] Care Partn er Gill Sharpe(Confirmed) Active Type 2 diabetes mellitus(Confirmed) Active 1aquatherapy @ [facility] 2fear and mistrust of medications 3distrust and fear of medications. wants to stick with natural treatments 4nasal mask [id number] delmi'd. Severe sleep apnea. 5did not tolerate CPAP. repeat titration pendg. Social History Social History Type Response Smoking Status Never smoker entered on: 04/09/14 Sex
--- OUTSIDE RECORDS SUMMARY | 2022-11-26 21:41 | XMS_ITS | Continuity of Care Document ---
Author Name Unknown Organization [facility] Address [address] [place] [address]- Care Team Providers Care Roll Press Operator Name Role Phone Lisha Lopez MD Primary Care Physician Encounter [facility] [place] Date(s): 09/28/19 - 10/28/[address] [address]- [facility] Attending Physician: Holden Rosario Admitting Physician: Holden Rosario Referring Physician: Holden Rosario Allergies, Adverse Reactions, Alerts Substance Reaction Severity Status morphine Active Contrast Dye Active Immunizations Given and Recorded Vaccine Date Status Refusal Reason diphtheria/tetanus/pertussis, acel(DTaP) 1 12/11/06 Given Meningococcal Polysaccharide Vaccine 2 03/24/97 Gi jamie Not Given Vaccine Date Status Refusal Reason pneumococcal 13-valent vaccine 07/11/16 Not Given Patient Refuses 1Admin Note: vis given. 2Admin Note: 3 shots, exposure at [employer] Medications Aquatherapy Aquatherapy, See Instructions, # [...] 4 Refills, Maintenance, 03/26/19 17:07:00 EST, Gel, [facility] #[id number], 160, cm, 03/26/19 16:28:00 EST, Height, 75, kg, 03/17/19... Start Date: 03/26/19 Status: Ordered niacin 100 mg oral tablet 1 tablet = 100 mg, By Mouth, 2 times a day, for 90 days, with meals, # 180 tablet, 3 Refills, Hard Stop 10/07/20 11:46:00 EDT, 10/13/19 11:46:00 EDT, [facility] #[id number], 160, cm, 04/20/19 9:45:00 EST, Height, 75, [...] 04/27/07 Active OA (osteoarthritis) of knee(Confirmed) Active *[id number]-Care Partn rita-Amelia Meuller(Confirmed) Active 1recurrent sx w Persantine MIBI, cardiac cath w/o CAD- Dr Garcia 2003 2aquatherapy @ [facility] 3Multiple hypodensities within the head of the right 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 had phys therapy but worse 7arms/legs 8distrust and fear of medications. wants to stick with natural treatments 9nasal mask [id number] delmi'd. Severe sleep apnea. 10did not tolerate CPAP. repeat titration pendg. Social History Social History Type Response Smoking Status Never smoker entered on: 04/09/14 Sex
--- OUTSIDE RECORDS SUMMARY | 2022-11-26 21:41 | XMS_ITS | Continuity of Care Document ---
Author Name Unknown Organization [facility] Address [address] [place] [address]- Care Team Providers Care Supervisor [employer] Name Role Phone Lisha Lopez MD Primary Care Physician Encounter [facility] [place] Date(s): 07/10/20 - 08/09/[address] [address]- Allergies, Adverse Reactions, Alerts Substance Reaction Severity Status morphine Active Contrast Dye Active Immunizations Given and Recorded Vaccine Date Status Refusal Reason diphtheria/tetanus/pertussis, acel(DTaP) 1 12/11/06 Given Meningococcal Polysaccharide Vaccine 2 03/24/97 Gi jamie Not Given Vaccine Date Status Refusal Reason pneumococcal 13-valent vaccine 07/11/16 Not Given Patient Refuses 1Admin Note: vis given. 2Admin Note: 3 shots, exposure at [email or web address] Medications acetaminophen 325 mg oral tablet 650 [...] 04/27/07 Active OA (osteoarthritis) of knee(Confirmed) Active *[id number] Care Partn rtia Garland Annemarie(Confirmed) Active Type 2 diabetes mellitus(Confirmed) Active 1aquatherapy @ [facility] 2fear and mistrust of medications 3distrust and fear of medications. wants to stick with natural treatments 4nasal mask [id number] delmi'd. Severe sleep apnea. 5did not tolerate CPAP. repeat titration pendg. Social History Social History Type Response Smoking Status Never smoker entered on: 04/09/14 Sex
--- OUTSIDE RECORDS SUMMARY | 2022-11-26 21:41 | XMS_ITS | Continuity of Care Document ---
Author Name Unknown Organization [facility] Address [address] [place] [address]- Care Team Providers Care Inclusion Intern Name Role Phone Lisha Lopez MD Primary Care Physician [place] [facility] [place](s): 06/24/20 - 07/24/[address] [address]- Allergies, Adverse Reactions, Alerts Substance Reaction Severity Status morphine Active Contrast Dye Active Immunizations Given and Recorded Vaccine Date Status Refusal Reason diphtheria/tetanus/pertussis, acel(DTaP) 1 12/11/06 Given Meningococcal Polysaccharide Vaccine 2 03/24/97 Gi jamie Not Given Vaccine Date Status Refusal Reason pneumococcal 13-valent vaccine 07/11/16 Not Given Patient Refuses 1Admin Note: vis given. 2Admin Note: 3 shots, exposure at [employer] Medications acetaminophen 325 mg oral tablet 650 [...] 04/27/07 Active OA (osteoarthritis) of knee(Confirmed) Active *[id number] Care Partn er Gill Sharpe(Confirmed) Active Type 2 diabetes mellitus(Confirmed) Active 1aquatherapy @ [facility] 2fear and mistrust of medications 3distrust and fear of medications. wants to stick with natural treatments 4nasal mask [id number] delmi'd. Severe sleep apnea. 5did not tolerate CPAP. repeat titration pendg. Social History Social History Type Response Smoking Status Never smoker entered on: 04/09/14 Sex
--- OUTSIDE RECORDS SUMMARY | 2022-11-26 21:41 | XMS_ITS | Continuity of Care Document ---
Author Name Unknown Organization [facility] Address [address] [place] [address]- Care Team Providers Care Post Hole Digger Name Role Phone Lisha Lopez MD Primary Care Physician Encounter [facility] Date(s): 06/05/21 - 07/05/[address] [address]- Allergies, Adverse Reactions, Alerts Substance Reaction Severity Status morphine Active Contrast Dye Active Immunizations Given and Recorded Vaccine Date Status Refusal Reason diphtheria/tetanus/pertussis, acel(DTaP) 1 12/11/06 Given Meningococcal Polysaccharide Vaccine 2 03/24/97 Gi jamie Not Given Vaccine Date Status Refusal Reason pneumococcal 13-valent vaccine 07/11/16 Not Given Patient Refuses 1Admin Note: vis given. 2Admin Note: 3 shots, exposure at [employer] Medications acetaminophen-codeine 300 mg-30 mg oral tablet [...] 0 Refills, Maintenance, 04/17/21 16:38:00 EST, Gel, [facility][id number], Partial fill upon patient request if the [...] 04/27/07 Active OA (osteoarthritis) of knee(Confirmed) Active *[id number] Care Partn er Gill Sharpe(Confirmed) Active Type 2 diabetes mellitus(Confirmed) Active 1aquatherapy @ [facility] 2fear and mistrust of medications 3distrust and fear of medications. wants to stick with natural treatments 4nasal mask [id number] delmi'd. Severe sleep apnea. 5did not tolerate CPAP. repeat titration pendg. Social History Social History Type Response Smoking Status Never smoker entered on: 04/09/14 Sex
--- OUTSIDE RECORDS SUMMARY | 2022-11-26 21:41 | XMS_ITS | Continuity of Care Document ---
Author Name Unknown Organization [facility] Address [address] [place] [address]- Care Team Providers Care Trolley Cleaner Name Role Phone Lisha Lopez MD Primary Care Physician [place] [facility] [place] Date(s): 07/15/20 - 08/14/20 [facility] [address] [place] [address] Allergies, Adverse Reactions, Alerts Substance Reaction Severity Status morphine Active Contrast Dye Active Immunizations Given and Recorded Vaccine Date Status Refusal Reason diphtheria/tetanus/pertussis, acel(DTaP) 1 12/11/06 Given Meningococcal Polysaccharide Vaccine 2 03/24/97 Gi jamie Not Given Vaccine Date Status Refusal Reason pneumococcal 13-valent vaccine 07/11/16 Not Given Patient Refuses 1Admin Note: vis given. 2Admin Note: 3 shots, exposure at [employer] Medications acetaminophen 325 mg oral tablet 650 [...] 04/27/07 Active OA (osteoarthritis) of knee(Confirmed) Active *[id number] Care Partn rita Garland Annemarie(Confirmed) Active Type 2 diabetes mellitus(Confirmed) Active 1aquatherapy @ [facility] 2fear and mistrust of medications 3distrust and fear of medications. wants to stick with natural treatments 4nasal mask [id number] delmi'd. Severe sleep apnea. 5did not tolerate CPAP. repeat titration pendg. Social History Social History Type Response Smoking Status Never smoker entered on: 04/09/14 Sex
--- OUTSIDE RECORDS SUMMARY | 2022-11-26 21:41 | XMS_ITS | Continuity of Care Document ---
Author Name Unknown Organization [facility] ter Address [address] [place] [address]- Care Team Providers Care Customer Marketing Assistant Name Role Phone Lisha Lopez MD Primary Care Physician Encounter [facility] [place] Date(s): 02/20/19 - 03/23/[address] [address]- [facility] Attending Physician: Lisha Lopez MD Admitting Physician: [...] given. 2Admin Note: 3 shots, exposure at [employer] Medications Aquatherapy Aquatherapy, See Instructions, # 3 box, Refills 11, Tot. Refills 11, Maintenance, aquatherapy bid for 6 weeks; dx=OA knees, 10/26/18 20:22:37 EDT, Compound Start Date: 10/26/18 Status: Ordered Bactrim DS 800 mg-160 mg oral tablet 1 tablet, By Mouth, 2 times a day, for 10 days, # 20 tablet, 0 Refills, Acute 03/27/19 15:01:12 EST, 03/17/19 15:01:12 EST, Tablet, [facility] #[id number], 1 tablet By Mouth 2 times a day,x10 days, 160, cm, 03/17/19 14:27:21 EST, Height, 75, kg,... Start Date: 03/17/19 Stop Date: 03/27/19 Status: Ordered CPAP Equipment See Instructions, # 1 box, Refills 1, Tot. Refills 1, Maintenance, CPAP supplies; Cpap 7mm H20; dx=SHAYY, 06/08/17 12:58:54, Compound Start Date: 06/08/17 Status: Ordered niacin 100 mg oral tablet 1 tablet = 100 mg, By Mouth, 2 times a day, for 90 days, with meals, # 180 tablet, 3 Refills, Hard Stop 10/13/19 11:46:27 EDT, 10/18/18 11:46:27 EDT Start Date: 10/18/18 Stop Date: 10/13/19 Status: Ordered Tylenol 8 Hour 650 mg oral tablet, extended release 2 tablet = 1,300 mg, By Mouth, Every 8 hours, PRN as needed for fever, for 7 days, # 24 tablet, 0 Refills, Acute 03/24/19 15:08:05 EST, 03/17/19 15:08:05 EST, ER Tablet, [facility] #[id number], 160, cm, 03/17/19 14:27:21 EST, Height, 75, kg, 03/04... Start Date: 03/17/19 Stop Date: 03/24/19 Status: Ordered Tylenol with Codeine #3 300 mg-30 mg oral tablet 1, tablet, By Mouth, Every 4 hours, PRN, for 7 days, # 12 tablet, Refills 0, Tot. Refills 0, Acute,for pain, 03/28/19 11:58:00 EST, 03/21/19 11:58:00 EST, Route to Pharmacy Electronically, [facility] #[id number] Tablet, 160, cm, 03/21/19 11:33:0... Start Date: 03/21/19 Stop Date: 03/28/19 Status: Ordered Problem List Condition Effective Dates [...] 04/27/07 Active OA (osteoarthritis) of knee(Confirmed) Active *[id number]-[facility] Part[facility] rita-Amelia Mueller(Confirmed) Active 1recurrent sx w Persantine MIBI, cardiac cath w/o CAD- Dr Garcia 2003 2aquatherapy @ [facility] 3Multiple hypodensities within the head of the right 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 had phys therapy but worse 7arms/legs 8distrust and fear of medications. wants to stick with natural treatments 9nasal mask [id number] delmi'd. Severe sleep apnea. 10did not tolerate CPAP. repeat titration pendg. Social History Social History Type Response Smoking Status Never smoker entered on: 04/09/14 Sex
--- OUTSIDE RECORDS SUMMARY | 2022-11-26 21:41 | XMS_ITS | Continuity of Care Document ---
Author Name Unknown Organization [facility] Address [address] [place] [address]- Care Team Providers Care Lead Web Application Developer Name Role Phone Lisha Lopez MD Primary Care Physician Encounter [facility] [place] Date(s): 03/06/21 - 04/05/[address] [address]- Allergies, Adverse Reactions, Alerts Substance Reaction Severity Status morphine Active Contrast Dye Active Immunizations Given and Recorded Vaccine Date Status Refusal Reason diphtheria/tetanus/pertussis, acel(DTaP) 1 12/11/06 Given Meningococcal Polysaccharide Vaccine 2 03/24/97 Gi jamie Not Given Vaccine Date Status Refusal Reason pneumococcal 13-valent vaccine 07/11/16 Not Given Patient Refuses 1Admin Note: vis given. 2Admin Note: 3 shots, exposure at [employer] Medications Centravites 50 Plus By Mouth, Daily, [...] 04/27/07 Active OA (osteoarthritis) of knee(Confirmed) Active *[id number] Care Partn er Gill Annemarie(Confirmed) Active Type 2 diabetes mellitus(Confirmed) Active 1aquatherapy @ [facility] 2fear and mistrust of medications 3distrust and fear of medications. wants to stick with natural treatments 4nasal mask [id number] delmi'd. Severe sleep apnea. 5did not tolerate CPAP. repeat titration pendg. Social History Social History Type Response Smoking Status Never smoker entered on: 04/09/14 Sex
--- OUTSIDE RECORDS SUMMARY | 2022-11-26 21:41 | XMS_ITS | Continuity of Care Document ---
Author Name Unknown Organization [facility] Address [address] [place] [address]- Care Team Providers Care Implementation Engineer Name Role Phone Lisha Lopez MD Primary Care Physician [place] [facility] [place] Date(s): 08/05/20 - 09/04/[address] [address]- Allergies, Adverse Reactions, Alerts Substance Reaction Severity Status morphine Active Contrast Dye Active Immunizations Given and Recorded Vaccine Date Status Refusal Reason diphtheria/tetanus/pertussis, acel(DTaP) 1 12/11/06 Given Meningococcal Polysaccharide Vaccine 2 03/24/97 Gi jamie Not Given Vaccine Date Status Refusal Reason pneumococcal 13-valent vaccine 07/11/16 Not Given Patient Refuses 1Admin Note: vis given. 2Admin Note: 3 shots, exposure at [employer] Medications acetaminophen 325 mg oral tablet 650 [...] 04/27/07 Active OA (osteoarthritis) of knee(Confirmed) Active *[id number] Care Partn rita Garland Annemarie(Confirmed) Active Type 2 diabetes mellitus(Confirmed) Active 1aquatherapy @ [facility] 2fear and mistrust of medications 3distrust and fear of medications. wants to stick with natural treatments 4nasal mask [id number] delmi'd. Severe sleep apnea. 5did not tolerate CPAP. repeat titration pendg. Social History Social History Type Response Smoking Status Never smoker entered on: 04/09/14 Sex
--- OUTSIDE RECORDS SUMMARY | 2022-11-26 21:41 | XMS_ITS | Continuity of Care Document ---
Author Name Unknown Organization [facility] Address [address] [place] [address]- Care Team Providers Care Dipper Fish Name Role Phone Lisha Lopez MD Primary Care Physician En[place] [facility] [place] Date(s): 08/15/20 - 09/14/20 [facility] [address] [place] [address]- Attending Physician: Holden Rosario Admitting Physician: Holden [...] given. 2Admin Note: 3 shots, exposure at [employer] Medications acetaminophen 325 mg oral tablet 650 [...] 04/27/07 Active OA (osteoarthritis) of knee(Confirmed) Active *[id number] Care Partn er Gill Sharpe(Confirmed) Active Type 2 diabetes mellitus(Confirmed) Active 1aquatherapy @ [facility] 2fear and mistrust of medications 3distrust and fear of medications. wants to stick with natural treatments 4nasal mask [id number] delmi'd. Severe sleep apnea. 5did not tolerate CPAP. repeat titration pendg. Social History Social History Type Response Smoking Status Never smoker entered on: 04/09/14 Sex
--- OUTSIDE RECORDS SUMMARY | 2022-11-26 21:41 | XMS_ITS | Continuity of Care Document ---
Author Name Unknown Organization [facility] Address [address] [place] [address]- Care Team Providers Care Flagstone Layer Name Role Phone Lisha Lopez MD Primary Care Physician [place] [facility] [place] Date(s): 01/11/22 - 01/18/22 [facility] [address] [place], [place] [address] Attending Physician: Quinton Xie DO Referring Physician: [...] given. 2Admin Note: 3 shots, exposure at [employer] Medications albendazole 200 mg oral tablet 2 tablet = 400 mg, By Mouth, Once, with meals; may repeat in 2 weeks, # 4 tablet, 0 Refills, Soft Stop, 09/09/21 11:45:00 EDT, Tablet, [facility] #[id number], Partial fill upon patient request if the [...] 0 Refills, Maintenance, 08/14/21 10:31:00 EDT, Gel, [facility] 3, Partial fill upon patient request if the prescription is for a schedule II opioid drug., 160, cm, 05/... Start Date: 08/14/21 Status: Ordered diclofenac 1% topical gel 1 application, Topically, 4 times a day, 2 g per dose, 4 x a day. not to exceed 8 grams/day/single joint of upper extremities, # 100 Gm, 0 Refills, Maintenance, 01/07/22 15:36:00 EDT, Gel, [facility] #[id number], Partial fill upon patient request... 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 wants to stick with natural treatments 4nasal mask [id number] delmi'd. Severe sleep apnea. 5did not tolerate CPAP. repeat titration pendg. Vital Signs Most recent to oldest [Reference Range]: 1 Height 160 cm (01/11/22 9:06 AM) Oxygen Saturation [94-100 %] 100 % (01/11/22 9:06 AM) Pulse Rate [55-90 bpm] 68 bpm (01/11/22 9:06 AM) Blood Pressure [90-138/55-84 mm Hg] 156/ 88mm Hg *H* (01/11/22 9:06 AM) Temperature [96.8-100.4 DegF] 98 DegF (01/11/22 9:06 AM) Mode of Delivery (Oxygen) Room air (01/11/22 9:06 AM) Blood pressure sites Arm, right (01/11/22 9:06 AM) Temperature Route Temporal (01/11/22 9:06 AM) Social History Social History Type Response Smoking Status Never smoker entered on: 04/09/14 Sex Patient Care team information Personnel Name: Lisha Lopez MD Address: Address: [address] [place] [address]
--- OUTSIDE RECORDS SUMMARY | 2022-11-26 21:41 | XMS_ITS | Continuity of Care Document ---
Author Name Unknown Organization [facility] Address [address] [place] [address]- Care Team Providers Care Healthcare Market Consultant Name Role Phone Lisha Lopez MD Primary Care Physician [place] [facility] [facility] [place] 08/28/21 - 09/27/[address] [address]- Allergies, Adverse Reactions, Alerts Substance Reaction Severity Status morphine Active Contrast Dye Active Immunizations Given and Recorded Vaccine Date Status Refusal Reason diphtheria/tetanus/pertussis, acel(DTaP) 1 12/11/06 Given Meningococcal Polysaccharide Vaccine 2 03/24/97 Gi jamie Not Given Vaccine Date Status Refusal Reason pneumococcal 13-valent vaccine 07/11/16 Not Given Patient Refuses 1Admin Note: vis given. 2Admin Note: 3 shots, exposure at [employer] Medications albendazole 200 mg oral tablet 2 tablet = 400 mg, By Mouth, Once, with meals; may repeat in 2 weeks, # 4 tablet, 0 Refills, Soft Stop, 09/09/21 11:45:00 EDT, Tablet, [facility] #[id number], Partial fill upon patient request if the [...] 0 Refills, Maintenance, 08/14/21 10:31:00 EDT, Gel, [facility] 3, Partial fill upon patient request if the prescription is for a schedule II opioid drug., 160, cm, 05... Start Date: 08/14/21 Status: Ordered Home Blood [...] 04/27/07 Active OA (osteoarthritis) of knee(Confirmed) Active *[id number] Care Partn er Gill Sharpe(Confirmed) Active Type 2 diabetes mellitus(Confirmed) Active 1aquatherapy @ [facility] 2fear and mistrust of medications 3distrust and fear of medications. wants to stick with natural treatments 4nasal mask [id number] delmi'd. Severe sleep apnea. 5did not tolerate CPAP. repeat titration pendg. Social History Social History Type Response Smoking Status Never smoker entered on: 04/09/14 Sex
--- OUTSIDE RECORDS SUMMARY | 2022-11-26 21:41 | XMS_ITS | Continuity of Care Document ---
Author Name Unknown Organization [facility] Address [address] [place] [address]- Care Team Providers Care Aperture Mask Etcher Name Role Phone Lisha Lopez MD Primary Care Physician [place] [facility] [place] 12/25/20 - 02/13/[address] [address]- Attending Physician: Lisha Lopez MD Admitting Physician: [...] given. 2Admin Note: 3 shots, exposure at [employer] Medications acetaminophen 325 mg oral tablet 650 mg, By Mouth, Every 4 hours, PRN, Temperature Greater than 100.5, Refills 0, Maintenance, Pain , Mild, 06/15/20 18:28:00 EDT, Partial fill upon patient request if the prescription is for a schedule II opioid drug. Start Date: 06/15/20 Status: Ordered acetaminophen-codeine 300 mg-30 mg oral tablet 1, tablet, By Mouth, Every 6 hours, PRN, for 3 days, # 12 tablet, Refills 0, Tot. Refills 0, Acute,severe pain, 02/15/21 14:46:00 EST, 02/12/21 14:46:00 EST, [facility], Partial fill upon patient request if the prescription is for a schedule I... Start Date: 02/12/21 Stop Date: 02/15/21 Status: Ordered Centravites 50 Plus By Mouth, [...] EDT, Supply Start Date: 06/18/20 Status: Ordered ibuprofen 400 mg oral tablet 400 mg, 1, tablet, By Mouth, 3 times a day, PRN, for 7 days, take with food, # 21 tablet, Refills 0, Tot. Refills 0, Acute 02/19/21 14:43:00 EST, pain, 02/12/21 14:43:00 EST, Route to Pharmacy Electronically, [facility] #[id number], Partial fill... Start Date: 02/12/21 Stop Date: 02/19/21 Status: Ordered Oxygen Supplies See Instructions, # [...] 04/27/07 Active OA (osteoarthritis) of knee(Confirmed) Active *[id number] Care Partn er Gill Sharpe(Confirmed) Active Type 2 diabetes mellitus(Confirmed) Active 1aquatherapy @ [facility] 2fear and mistrust of medications 3distrust and fear of medications. wants to stick with natural treatments 4nasal mask [id number] delmi'd. Severe sleep apnea. 5did not tolerate CPAP. repeat titration pendg. Social History Social History Type Response Smoking Status Never smoker entered on: 04/09/14 Sex
--- OUTSIDE RECORDS SUMMARY | 2022-11-26 21:41 | XMS_ITS | Continuity of Care Document ---
Author Name Unknown Organization [facility] Address [address] [place] [address]- Care Team Providers Care Ladder Operator Name Role Phone Lisha Lopez MD Primary Care Physician [place] [facility] [id number] Date(s): 12/22/21 - 02/20/22 [facility] [address] [place], [place] [address] Attending Physician: Дмитрий Alicia MD Admitting Physician: Дмитрий Alicia MD Allergies, Adverse Reactions, Alerts Substance Reaction Severity Status morphine Active Contrast Dye Active Immunizations Given and Recorded Vaccine Date Status Refusal Reason diphtheria/tetanus/pertussis, acel(DTaP) 1 12/11/06 Given Meningococcal Polysaccharide Vaccine 2 03/24/97 Gi jamie Not Given Vaccine Date Status Refusal Reason pneumococcal 13-valent vaccine 07/11/16 Not Given Patient Refuses 1Admin Note: vis given. 2Admin Note: 3 shots, exposure at [employer] Medications acetaminophen-codeine 300 mg-30 mg oral tablet 1, tablet, By Mouth, Every 6 hours, PRN, not to exceed 3000 mg acetaminophen per day; dx= ligament tear and inflammation foot, # 24 tablet, Refills 0, Tot. Refills 0, Acute, severe pain, 02/22/22 16:04:00 EST, 01/22/22 16:03:00 EDT, Route to Pharmacy... Start Date: 01/22/22 Stop Date: 02/22/22 Status: Ordered acetaminophen-codeine 300 mg-30 mg oral tablet 1, tablet, By Mouth, Every 6 hours, PRN, not to exceed 3000 mg acetaminophen per day; dx= ligament tear and inflammation foot, # 30 tablet, Refills 1, Tot. Refills 1, Acute, severe pain, 02/24/22 12:04:00 EST, 02/22/22 16:04:00 EST, Route to Pharmacy... Start Date: 02/22/22 Stop Date: 02/24/22 Status: Ordered Always Incontinence briefs Always Incontinence [...] 0 Refills, Maintenance, 08/14/21 10:31:00 EDT, Gel, [facility], Partial fill upon patient request if the prescription is for a schedule II opioid drug., 160, cm, .. Start Date: 08/14/21 Status: Ordered diclofenac 1% topical gel 1 application, Topically, 4 times a day, 2 g per dose, 4 x a day. not to exceed 8 grams/day/single joint of upper extremities, # 100 Gm, 0 Refills, Maintenance, 01/07/22 15:36:00 EDT, Gel, [facility] #[id number], Partial fill upon patient request... Start Date: 01/07/22 Stop Date: 01/14/22 Status: Ordered diclofenac sodium 75 mg oral delayed release tablet 1 tablet = 75 mg, By Mouth, 2 times a day, # 28 tablet, 0 Refills, Maintenance, 01/11/22 9:43:00 EDT, EC Tablet, [facility] #[id number], Partial fill upon patient request if the [...] Active OA (osteoarthritis) of knee Confirmed Active *[id number] Director [employer] Gill Sharpe Confirmed Active Type 2 diabetes mellitus Confirmed Active 1aquatherapy @ [facility] 2fear and mistrust of medications 3distrust and fear of medications. wants to stick with natural treatments 4nasal mask [id number] delmi'd. Severe sleep apnea. 5did not tolerate CPAP. repeat titration pendg. Social History Social History Type Response Smoking Status Never smoker entered on: 04/09/14 Sex Patient Care team information Care Team Personnel Name: Concha VALVERDE, Lara Durham Position: [facility] RN Member Role: Primary Care Nurse Name: Lisha Lopez MD Position: [facility] Primary Care Physician Member Role: PCP Address: Address: [address] [place] [address]- Name: Marbella Costa RN Position: [facility] RN Member Role: Primary Care Nurse Name: Alisia Rojo RN Position: [facility] ED RN W/OE and Tasks Member Role: Primary Care Nurse Name: Monica Peña RN Position: [facility] RN Member Role: Primary Care Nurse Name: Kiersten Thomas RN Position: [facility] RN Member Role: Primary Care Nurse Care Team Related Persons Name: SLOAN HUERTAS Address: [place] [address]
--- OUTSIDE RECORDS SUMMARY | 2022-11-26 21:41 | XMS_ITS | Continuity of Care Document ---
Author Name Unknown Organization [facility] Address [address] [place] [address]- Care Team Providers Care Barmaid Name Role Phone Lisha Lopez MD Primary Care Physician En[place] [facility] [place] Date(s): 08/17/21 - 09/16/[address] [address]- Allergies, Adverse Reactions, Alerts Substance Reaction Severity Status morphine Active Contrast Dye Active Immunizations Given and Recorded Vaccine Date Status Refusal Reason diphtheria/tetanus/pertussis, acel(DTaP) 1 12/11/06 Given Meningococcal Polysaccharide Vaccine 2 03/24/97 Gi jamie Not Given Vaccine Date Status Refusal Reason pneumococcal 13-valent vaccine 07/11/16 Not Given Patient Refuses 1Admin Note: vis given. 2Admin Note: 3 shots, exposure at [employer] Medications albendazole 200 mg oral tablet 2 tablet = 400 mg, By Mouth, Once, with meals; may repeat in 2 weeks, # 4 tablet, 0 Refills, Soft Stop, 09/09/21 11:45:00 EDT, Tablet, [facility] #[id number], Partial fill upon patient request if the [...] 0 Refills, Maintenance, 08/14/21 10:31:00 EDT, Gel, [facility] 3, Partial fill upon patient request if [...] 04/27/07 Active OA (osteoarthritis) of knee(Confirmed) Active *[id number] Care Partn er Gill Sharpe(Confirmed) Active Type 2 diabetes mellitus(Confirmed) Active 1aquatherapy @ [facility] 2fear and mistrust of medications 3distrust and fear of medications. wants to stick with natural treatments 4nasal mask [id number] delmi'd. Severe sleep apnea. 5did not tolerate CPAP. repeat titration pendg. Social History Social History Type Response Smoking Status Never smoker entered on: 04/09/14 Sex
--- OUTSIDE RECORDS SUMMARY | 2022-11-26 21:41 | XMS_ITS | Continuity of Care Document ---
Author Name Unknown Organization [facility] Address [address] [place] [address]- Care Team Providers Care Butadiene Converter Operator Name Role Phone Lisha Lopez MD Primary Care Physician [place] [facility] [place](s[place] 08/03/21 - 09/02/[address] [address]- Allergies, Adverse Reactions, Alerts Substance Reaction Severity Status morphine Active Contrast Dye Active Immunizations Given and Recorded Vaccine Date Status Refusal Reason diphtheria/tetanus/pertussis, acel(DTaP) 1 12/11/06 Given Meningococcal Polysaccharide Vaccine 2 03/24/97 Gi jamie Not Given Vaccine Date Status Refusal Reason pneumococcal 13-valent vaccine 07/11/16 Not Given Patient Refuses 1Admin Note: vis given. 2Admin Note: 3 shots, exposure at [employer] Medications Always Incontinence briefs Always Incontinence [...] 0 Refills, Maintenance, 08/14/21 10:31:00 EDT, Gel, [facility], Partial fill upon patient [...] 04/27/07 Active OA (osteoarthritis) of knee(Confirmed) Active *[id number] Care Partn rita Sharpe(Confirmed) Active Type 2 diabetes mellitus(Confirmed) Active 1aquatherapy @ [facility] 2fear and mistrust of medications 3distrust and fear of medications. wants to stick with natural treatments 4nasal mask [id number] delmi'd. Severe sleep apnea. 5did not tolerate CPAP. repeat titration pendg. Social History Social History Type Response Smoking Status Never smoker entered on: 04/09/14 Sex
--- OUTSIDE RECORDS SUMMARY | 2022-11-26 21:41 | XMS_ITS | Continuity of Care Document ---
Author Name Unknown Organization [facility] ter Address [address] [place] [address]- Care Team Providers Care Marketing Engineer Name Role Phone Lisha Lopez MD Primary Care Physician En[place] [facility] [place] Date(s): 03/04/21 - 03/04/[address] [address] Attending Physician: Lisha Lopez MD Allergies, Adverse [...] given. 2Admin Note: 3 shots, exposure at [employer] Medications acetaminophen 325 mg oral tablet 650 [...] 04/27/07 Active OA (osteoarthritis) of knee(Confirmed) Active *[id number] Care Partn er Gill Annemarie(Confirmed) Active Type 2 diabetes mellitus(Confirmed) Active 1aquatherapy @ [facility] 2fear and mistrust of medications 3distrust and fear of medications. wants to stick with natural treatments 4nasal mask [id number] delmi'd. Severe sleep apnea. 5did not tolerate CPAP. repeat titration pendg. Social History Social History Type Response Smoking Status Never smoker entered on: 04/09/14 Sex
--- OUTSIDE RECORDS SUMMARY | 2022-11-26 21:42 | XMS_ITS | Continuity of Care Document ---
Author Name Unknown Organization [facility] Address [address] [place] [address]- Care Team Providers Care Bread Baker Name Role Phone Lisha Lopez MD Primary Care Physician [place] [facility] [place] 11/17/21 - 12/17/21 [facility] [address] [place] [address]- Attending Physician: Holden Rosario Admitting Physician: Holden [...] given. 2Admin Note: 3 shots, exposure at [employer] Medications albendazole 200 mg oral tablet 2 tablet = 400 mg, By Mouth, Once, with meals; may repeat in 2 weeks, # 4 tablet, 0 Refills, Soft Stop, 09/09/21 11:45:00 EDT, Tablet, [facility] #[id number], Partial fill upon patient request if the [...] Refills, Maintenance, 08/14/21 10:31:00 EDT, Gel, [facility] 3, Partial fill upon patient request [...] 04/27/07 Active OA (osteoarthritis) of knee(Confirmed) Active *[id number] Care Partn er Gill Sharpe(Confirmed) Active Type 2 diabetes mellitus(Confirmed) Active 1aquatherapy @ [facility] 2fear and mistrust of medications 3distrust and fear of medications. wants to stick with natural treatments 4nasal mask [id number] delmi'd. Severe sleep apnea. 5did not tolerate CPAP. repeat titration pendg. Social History Social History Type Response Smoking Status Never smoker entered on: 04/09/14 Sex Care Team Personnel Name: Lisha Lopez MD Address: [address] [place] [address]-
--- OUTSIDE RECORDS SUMMARY | 2022-11-26 21:42 | XMS_ITS | Continuity of Care Document ---
Author Name Unknown Organization [facility] Address [address] [place] [address]- Care Team Providers Care Automotive Electrical Fitter Name Role Phone Lisha Lopez MD Primary Care Physician [place] [facility] [place](s): 04/14/21 - 05/14/[address] [address]- Allergies, Adverse Reactions, Alerts Substance Reaction Severity Status morphine Active Contrast Dye Active Immunizations Given and Recorded Vaccine Date Status Refusal Reason diphtheria/tetanus/pertussis, acel(DTaP) 1 12/11/06 Given Meningococcal Polysaccharide Vaccine 2 03/24/97 Gi jamie Not Given Vaccine Date Status Refusal Reason pneumococcal 13-valent vaccine 07/11/16 Not Given Patient Refuses 1Admin Note: vis given. 2Admin Note: 3 shots, exposure at [employer] Medications acetaminophen-codeine 300 mg-30 mg oral tablet [...] 0 Refills, Maintenance, 04/17/21 16:38:00 EST, Gel, [facility] #[id number], Partial fill upon patient request if the [...] 04/27/07 Active OA (osteoarthritis) of knee(Confirmed) Active *[id number] Care Partn er Gill Sharpe(Confirmed) Active Type 2 diabetes mellitus(Confirmed) Active 1aquatherapy @ [facility] 2fear and mistrust of medications 3distrust and fear of medications. wants to stick with natural treatments 4nasal mask [id number] delmi'd. Severe sleep apnea. 5did not tolerate CPAP. repeat titration pendg. Social History Social History Type Response Smoking Status Never smoker entered on: 04/09/14 Sex
--- OUTSIDE RECORDS SUMMARY | 2022-11-26 21:42 | XMS_ITS | Continuity of Care Document ---
Author Name Unknown Organization [facility] Address [address] [place] [address]- Care Team Providers Care Operating System Programmer Name Role Phone Lisha Lopez MD Primary Care Physician [place] [facility] [place](s[place] 05/22/21 - 07/03/[address] [address]- Attending Physician: Lisha Lopez MD Admitting Physician: [...] given. 2Admin Note: 3 shots, exposure at [employer] Medications acetaminophen-codeine 300 mg-30 mg oral tablet [...] 0 Refills, Maintenance, 04/17/21 16:38:00 EST, Gel, [facility] #[id number], Partial fill upon patient request if the [...] 04/27/07 Active OA (osteoarthritis) of knee(Confirmed) Active *[id number] Care Partn er Gill Sharpe(Confirmed) Active Type 2 diabetes mellitus(Confirmed) Active 1aquatherapy @ [facility] 2fear and mistrust of medications 3distrust and fear of medications. wants to stick with natural treatments 4nasal mask [id number] delmi'd. Severe sleep apnea. 5did not tolerate CPAP. repeat titration pendg. Social History Social History Type Response Smoking Status Never smoker entered on: 04/09/14 Sex
--- OUTSIDE RECORDS SUMMARY | 2022-11-26 21:42 | XMS_ITS | Continuity of Care Document ---
Author Name Unknown Organization [facility] Address [address] [place] [address]- Care Team Providers Care Child And Family Counselor Name Role Phone Lisha Lopez MD Primary Care Physician Encounter [facility] [place] Date(s): 04/08/21 - 06/05/[address] [address]- Attending Physician: Lisha Lopez MD Admitting Physician: [...] given. 2Admin Note: 3 shots, exposure at [employer] Medications acetaminophen-codeine 300 mg-30 mg oral tablet [...] 0 Refills, Maintenance, 04/17/21 16:38:00 EST, Gel, [facility] #[id number], Partial fill upon patient request if the [...] 04/27/07 Active OA (osteoarthritis) of knee(Confirmed) Active *[id number] Care Partn er Gill Sharpe(Confirmed) Active Type 2 diabetes mellitus(Confirmed) Active 1aquatherapy @ [facility] 2fear and mistrust of medications 3distrust and fear of medications. wants to stick with natural treatments 4nasal mask [id number] delmi'd. Severe sleep apnea. 5did not tolerate CPAP. repeat titration pendg. Social History Social History Type Response Smoking Status Never smoker entered on: 04/09/14 Sex
--- OUTSIDE RECORDS SUMMARY | 2022-11-26 21:42 | XMS_ITS | Continuity of Care Document ---
Author Name Unknown Organization [facility] Address [address] [place] [address]- Care Team Providers Care Promotions Director Name Role Phone Lisha Lopez MD Primary Care Physician Encounter [facility] Date(s): 01/14/21 - 02/13/[address] [address]- Allergies, Adverse Reactions, Alerts Substance Reaction Severity Status morphine Active Contrast Dye Active Immunizations Given and Recorded Vaccine Date Status Refusal Reason diphtheria/tetanus/pertussis, acel(DTaP) 1 12/11/06 Given Meningococcal Polysaccharide Vaccine 2 03/24/97 Gi jamie Not Given Vaccine Date Status Refusal Reason pneumococcal 13-valent vaccine 07/11/16 Not Given Patient Refuses 1Admin Note: vis given. 2Admin Note: 3 shots, exposure at [employer] Medications acetaminophen 325 mg oral tablet 650 [...] 02/12/21 14:43:00 EST, Route to Pharmacy Electronically, [facility] #[id number], Partial fill... Start Date: 02/12/21 Stop Date: [...] 04/27/07 Active OA (osteoarthritis) of knee(Confirmed) Active *[id number] Care Partn er Gill Sharpe(Confirmed) Active Type 2 diabetes mellitus(Confirmed) Active 1aquatherapy @ [facility] 2fear and mistrust of medications 3distrust and fear of medications. wants to stick with natural treatments 4nasal mask [id number] delmi'd. Severe sleep apnea. 5did not tolerate CPAP. repeat titration pendg. Social History Social History Type Response Smoking Status Never smoker entered on: 04/09/14 Sex
--- OUTSIDE RECORDS SUMMARY | 2022-11-26 21:42 | XMS_ITS | Continuity of Care Document ---
Author Name Unknown Organization [facility] ion Address [address] [place] [address]- Care Team Providers Care Lead Massage Therapist Name Role Phone Lisha Lopez MD Primary Care Physician Encounter [facility] [place] Date(s): 05/05/22 - 07/05/[address] [address]- Encounter Diagnosis Pain in left knee(Final) - Discharge Disposition: A-D/C Home Attending Physician: Lisha Lopez MD Admitting Physician: [...] given. 2Admin Note: 3 shots, exposure at [employer] Medications Always Incontinence briefs Always Incontinence [...] opioid drug. Start Date: 08/12/21 Status: Ordered Blood pressure cuff Blood pressure cuff, See Instructions, # 1 each, Refills 99, Tot. Refills 99, Maintenance, Dx: I10,essential hypertension Monitor blood pressure at home at least 3 times per week, first thing in morning, 05/24/22 12:33:00 EST, Supply Start Date: 05/24/22 Status: Ordered Centravites 50 Plus By Mouth, [...] 0 Refills, Maintenance, 08/14/21 10:31:00 EDT, Gel, [facility] 3, Partial fill upon patient [...] 0 Refills, Maintenance, 01/07/22 15:36:00 EDT, Gel, [facility] #[id number], Partial fill upon patient request... Start Date: 01/07/22 Stop Date: 01/14/22 Status: Ordered diclofenac sodium 75 mg oral delayed release tablet 1 tablet = 75 mg, By Mouth, 2 times a day, # 28 tablet, 0 Refills, Maintenance, 01/11/22 9:43:00 EDT, EC Tablet, [facility] #[id number], Partial fill upon patient request if the [...] opioid drug. Start Date: 08/12/21 Status: Ordered niacin 100 mg oral tablet 1 tablet = 100 mg, By Mouth, 2 times a day, for 90 days, with meals, # 180 tablet, 3 Refills, Hard Stop 06/25/23 12:46:00 EDT, 06/30/22 12:46:00 EDT, [facility] #[id number], 160, cm, 06/30/22 11:12:00 EDT, Height, 73, kg, 01/10/22 17:54:00 EDT, D... Start Date: 06/30/22 Stop Date: 06/25/23 Status: Ordered Oxygen Supplies See Instructions, # 1 pack/packet, Refills 11, Tot. Refills 11, Maintenance, Nocturnal O2 at 2L/m; dx SHAYY severe, unable to tolerate CPAP, 07/24/21 14:14:00 EDT, Supply Start Date: 07/24/21 Status: Ordered PT for knee OA PT for knee OA, See Instructions, # 12 each, Refills 0, Tot. Refills 0, Maintenance, PT twice a week for dx= OA knee bilaterally, 05/19/22 13:28:00 EST, Supply Start Date: 05/19/22 Status: Ordered Timolol Maleate (Eqv-Timoptic) 0.5% ophthalmic [...] Active OA (osteoarthritis) of knee Confirmed Active *[id number] Quality Rep Gill Sharpe Confirmed Active Type 2 diabetes mellitus Confirmed Active 1aquatherapy @ [facility] 2fear and mistrust of medications 3distrust and fear of medications. wants to stick with natural treatments 4nasal mask [id number] delmi'd. Severe sleep apnea. 5did not tolerate CPAP. repeat titration pendg. Social History Social History Type Response Smoking Status Never smoker entered on: 04/09/14 Sex Patient Care team information Care Team Personnel Name: Lara Kern RN Position: S RN Member Role: Primary Care Nurse Name: Lisha Lopez MD Position: [facility] Primary Care Physician Member Role: PCP Address: Address: [address] [place] [address]- Name: Marbella Costa RN Position: S RN Member Role: Primary Care Nurse Name: Alisia Rojo RN Position: S RN Member Role: Primary Care Nurse Name: Monica Peña RN Position: S RN Member Role: Primary Care Nurse Name: Liana Woods RN Position: [facility] RN Member Role: Primary Care Nurse Name: Kiersten Thomas RN Position: [facility] RN Member Role: Primary Care Nurse Care Team Related Persons Name: SLOAN HUERTAS Address: [place] [address]
--- OUTSIDE RECORDS SUMMARY | 2022-11-26 21:42 | XMS_ITS | Continuity of Care Document ---
Author Name Unknown Organization [facility] Address [address] [place] [address]- Care Team Providers Care Program Therapist Name Role Phone Lisha Lopez MD Primary Care Physician [place] [facility] [place] 08/11/20 - 09/10/[address] [address]- Allergies, Adverse Reactions, Alerts Substance Reaction Severity Status morphine Active Contrast Dye Active Immunizations Given and Recorded Vaccine Date Status Refusal Reason diphtheria/tetanus/pertussis, acel(DTaP) 1 12/11/06 Given Meningococcal Polysaccharide Vaccine 2 03/24/97 Gi jamie Not Given Vaccine Date Status Refusal Reason pneumococcal 13-valent vaccine 07/11/16 Not Given Patient Refuses 1Admin Note: vis given. 2Admin Note: 3 shots, exposure at [employer] Medications acetaminophen 325 mg oral tablet 650 [...] 04/27/07 Active OA (osteoarthritis) of knee(Confirmed) Active *[id number] Care Partn er Gill Sharpe(Confirmed) Active Type 2 diabetes mellitus(Confirmed) Active 1aquatherapy @ [facility] 2fear and mistrust of medications 3distrust and fear of medications. wants to stick with natural treatments 4nasal mask [id number] delmi'd. Severe sleep apnea. 5did not tolerate CPAP. repeat titration pendg. Social History Social History Type Response Smoking Status Never smoker entered on: 04/09/14 Sex
--- OUTSIDE RECORDS SUMMARY | 2022-11-26 21:42 | XMS_ITS | Continuity of Care Document ---
Author Name Unknown Organization [facility] Address [address] [place] [address]- Care Team Providers Care Carpenter Maintenance Name Role Phone Lisha Lopez MD Primary Care Physician En[place] [facility] [place](s): 04/17/21 - 05/27/[address] [address]- Attending Physician: Not on Staff, Attending MD Referring Physician: Rashid Osullivan NP Allergies, Adverse Reactions, Alerts Substance Reaction Severity Status morphine Active Contrast Dye Active Immunizations Given and Recorded Vaccine Date Status Refusal Reason diphtheria/tetanus/pertussis, acel(DTaP) 1 12/11/06 Given Meningococcal Polysaccharide Vaccine 2 03/24/97 Gi jamie Not Given Vaccine Date Status Refusal Reason pneumococcal 13-valent vaccine 07/11/16 Not Given Patient Refuses 1Admin Note: vis given. 2Admin Note: 3 shots, exposure at [employer] Medications acetaminophen-codeine 300 mg-30 mg oral tablet [...] 0 Refills, Maintenance, 04/17/21 16:38:00 EST, Gel, [facility] #[id number], Partial fill upon patient request if the [...] 04/27/07 Active OA (osteoarthritis) of knee(Confirmed) Active *[id number] Care Partn er Gill Sharpe(Confirmed) Active Type 2 diabetes mellitus(Confirmed) Active 1aquatherapy @ [facility] 2fear and mistrust of medications 3distrust and fear of medications. wants to stick with natural treatments 4nasal mask [id number] delmi'd. Severe sleep apnea. 5did not tolerate CPAP. repeat titration pendg. Social History Social History Type Response Smoking Status Never smoker entered on: 04/09/14 Sex
--- OUTSIDE RECORDS SUMMARY | 2022-11-26 21:42 | XMS_ITS | Continuity of Care Document ---
Author Name Unknown Organization [facility] Address [address] [place] [address]- Care Team Providers Care Automatic Machines Supervisor Name Role Phone Lisha Lopez MD Primary Care Physician [place] [facility] [place] - 08/13/[address] [address]- Attending Physician: Lisha Lopez MD Admitting Physician: [...] given. 2Admin Note: 3 shots, exposure at [employer] Medications acetaminophen 325 mg oral tablet 650 [...] 04/27/07 Active OA (osteoarthritis) of knee(Confirmed) Active *[id number] Care Partn er Gill Sharpe(Confirmed) Active Type 2 diabetes mellitus(Confirmed) Active 1aquatherapy @ [facility] 2fear and mistrust of medications 3distrust and fear of medications. wants to stick with natural treatments 4nasal mask [id number] delmi'd. Severe sleep apnea. 5did not tolerate CPAP. repeat titration pendg. Social History Social History Type Response Smoking Status Never smoker entered on: 04/09/14 Sex
--- OUTSIDE RECORDS SUMMARY | 2022-11-26 21:42 | XMS_ITS | Continuity of Care Document ---
Author Name Unknown Organization [facility] Address [address] [place] [address]- Care Team Providers Care Etl Informatica Developer Name Role Phone Lisha Lpoez MD Primary Care Physician Encounter [facility] [place] Date(s): 04/01/21 - 05/08/[address] [address]- Attending Physician: Lisha Lopez MD Admitting Physician: [...] given. 2Admin Note: 3 shots, exposure at [employer] Medications acetaminophen-codeine 300 mg-30 mg oral tablet [...] 0 Refills, Maintenance, 04/17/21 16:38:00 EST, Gel, [facility] #[id number], Partial fill upon patient request if the [...] 04/27/07 Active OA (osteoarthritis) of knee(Confirmed) Active *[id number] Care Partn er Gill Derikarun(Confirmed) Active Type 2 diabetes mellitus(Confirmed) Active 1aquatherapy @ [facility] 2fear and mistrust of medications 3distrust and fear of medications. wants to stick with natural treatments 4nasal mask [id number] delmi'd. Severe sleep apnea. 5did not tolerate CPAP. repeat titration pendg. Social History Social History Type Response Smoking Status Never smoker entered on: 04/09/14 Sex
--- OUTSIDE RECORDS SUMMARY | 2022-11-26 21:42 | XMS_ITS | Continuity of Care Document ---
Author Name Unknown Organization [facility] Address [address] [place] [address]- Care Team Providers Care Master Scheduler Name Role Phone Lisha Lopez MD Primary Care Physician [place] [facility] [place] [id number] Date(s): 04/02/19 - 04/12/[address] [address]- [facility] Attending Physician: Holden Rosario Admitting Physician: [...] given. 2Admin Note: 3 shots, exposure at [employer] Medications Aquatherapy Aquatherapy, See Instructions, # [...] 4 Refills, Maintenance, 03/26/19 17:07:00 EST, Gel, [facility] #[id number], 160, cm, 03/26/19 16:28:00 EST, Height, 75, [...] 04/27/07 Active OA (osteoarthritis) of knee(Confirmed) Active *[id number]-Care Partn er-Amelia Mueller(Confirmed) Active 1recurrent sx w Persantine MIBI, cardiac cath w/o CAD- Dr Garcia 2003 2aquatherapy @ [facility] 3Multiple hypodensities within the head of the right 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 had phys therapy but worse 7arms/legs 8distrust and fear of medications. wants to stick with natural treatments 9nasal mask [id number] delmi'd. Severe sleep apnea. 10did not tolerate CPAP. repeat titration pendg. Social History Social History Type Response Smoking Status Never smoker entered on: 04/09/14 Sex
--- OUTSIDE RECORDS SUMMARY | 2022-11-26 21:42 | XMS_ITS | Continuity of Care Document ---
Author Name Unknown Organization [facility] Address [address] [place] [address]- Care Team Providers Care Mud Temperer Name Role Phone Lisha Lopez MD Primary Care Physician Encounter [facility] Date(s): 07/18/20 - 08/17/[address] [address]- Allergies, Adverse Reactions, Alerts Substance Reaction Severity Status morphine Active Contrast Dye Active Immunizations Given and Recorded Vaccine Date Status Refusal Reason diphtheria/tetanus/pertussis, acel(DTaP) 1 12/11/06 Given Meningococcal Polysaccharide Vaccine 2 03/24/97 Gi jamie Not Given Vaccine Date Status Refusal Reason pneumococcal 13-valent vaccine 07/11/16 Not Given Patient Refuses 1Admin Note: vis given. 2Admin Note: 3 shots, exposure at [employer] Medications acetaminophen 325 mg oral tablet 650 [...] 04/27/07 Active OA (osteoarthritis) of knee(Confirmed) Active *[id number] Care Partn rita Garland Annemarie(Confirmed) Active Type 2 diabetes mellitus(Confirmed) Active 1aquatherapy @ [facility] 2fear and mistrust of medications 3distrust and fear of medications. wants to stick with natural treatments 4nasal mask [id number] delmi'd. Severe sleep apnea. 5did not tolerate CPAP. repeat titration pendg. Social History Social History Type Response Smoking Status Never smoker entered on: 04/09/14 Sex
--- OUTSIDE RECORDS SUMMARY | 2022-11-26 21:42 | XMS_ITS | Continuity of Care Document ---
Author Name Unknown Organization [facility] ter Address [address] [place] [address]- Care Team Providers Care Racebook Writer Name Role Phone Lisha Lopez MD Primary Care Physician Encounter [facility] [place] Date(s): 01/10/22 - 01/11/[address] [address]- Discharge Disposition: A-D/C Walkout Attending Physician: Not on Staff, Attending MD Admitting Physician: Not on Staff, Admitting MD Referring Physician: Not on Staff, Referring [...] given. 2Admin Note: 3 shots, exposure at [employer] Medications albendazole 200 mg oral tablet 2 tablet = 400 mg, By Mouth, Once, with meals; may repeat in 2 weeks, # 4 tablet, 0 Refills, Soft Stop, 09/09/21 11:45:00 EDT, Tablet, [facility] #[id number], Partial fill upon patient request if the [...] 0 Refills, Maintenance, 01/07/22 15:36:00 EDT, Gel, [facility] #[id number], Partial fill upon patient request... Start Date: 01/07/22 Stop Date: 01/14/22 Status: Ordered diclofenac sodium 75 mg oral delayed release tablet 1 tablet = 75 mg, By Mouth, 2 times a day, # 28 tablet, 0 Refills, Maintenance, 01/11/22 9:43:00 EDT, EC Tablet, [facility] #[id number], Partial fill upon patient request if the [...] Active OA (osteoarthritis) of knee Confirmed Active *[id number] Soda Flaker Gill Sharpe Confirmed Active Type 2 diabetes mellitus Confirmed Active 1aquatherapy @ [facility] 2fear and mistrust of medications 3distrust and fear of medications. wants to stick with natural treatments 4nasal mask [id number] delmi'd. Severe sleep apnea. 5did not tolerate CPAP. repeat titration pendg. Results Radiology Reports * Exam Date Time Procedure Performing Provider Status 01/10/22 7:14 PM Foot Min 3 Views Left Derik Tsangah; Auth (Verified) Notes: (Foot Min 3 Views Left) Reason For Exam: with Pain;Trauma RESULT: Foot Min 3 Views Left Examination: Left foot performed on 01/10/22. History: Hx of Present Illness: L foot swelling; Reason: Trauma; with Pain; Clinical Question(s): Fracture; Findings: Frontal, oblique, and lateral views of the left foot are compared to a prior study dated 12/29/2010. Deformity of the base of the second proximal phalanx is unchanged from the prior study. Osteopenia is noted. There are no fractures. The soft tissues are unremarkable. IMPRESSION: There is no acute osseous abnormality. WSN: [id number] Ordering Physician: Alexandro Mishra Dictated By: Urvashi Martinez MD Dictated Date/Time: 01/10/22 7:18 pm Reviewed By: Urvashi Martinez MD Signed By: Urvashi Martinez MD Signed Date/Time: 01/10/22 7:18 pm Transcribed By: LORENA Transcribed Date/Time: 01/10/22 7:17 pm Vital Signs Most recent to oldest [Reference Range]: 1 2 3 Height 160 cm (01/10/22 5:54 PM) Weight 73 kg (01/10/22 5:54 PM) Oxygen Saturation [94-100 %] 100 % (01/11/22 12:13 AM) 100 % (01/10/22 10:17 PM) 100 % (01/10/22 8:12 PM) Pulse Rate [55-90 bpm] 70 bpm (01/11/22 12:13 AM) 65 bpm (01/10/22 10:17 PM) 65 bpm (01/10/22 8:12 PM) Blood Pressure [90-138/55-84 mm Hg] 118/66mm Hg (01/11/22 12:13 AM) 115/70mm Hg (01/10/22 10:17 PM) 145/94mm Hg *H* (01/10/22 8:12 PM) Respiratory Rate [16-30 br/min] 20 br/min (01/10/22 6:17 PM) 20 br/min (01/10/22 4:06 PM) Temperature [96.8-100.4 DegF] 98.8 DegF (01/11/22 12:13 AM) 98.9 DegF (01/10/22 10:17 PM) 98.8 DegF (01/10/22 8:12 PM) Mode of Delivery (Oxygen) Room air (01/11/22 12:13 AM) Room air (01/10/22 10:17 PM) Room air (01/10/22 8:12 PM) Blood pressure sites Arm, left (01/11/22 12:13 AM) Arm, left (01/10/22 10:17 PM) Arm, right (01/10/22 8:12 PM) Temperature Route Oral (01/11/22 12:13 AM) Oral (01/10/22 10:17 PM) Oral (01/10/22 8:12 PM) Dry Weight 73 kg (01/10/22 5:54 PM) Social History Social History Type Response Smoking Status Never smoker entered on: 04/09/14 Sex XR Foot - left GE 3 Views * BHSPowerscribe , CIS S: TRANSCRIBE Juan STOCK , Urvashi M: VERIFY Event Display: Result: Authored Date: [id number] Examination: Left foot performed on 01/10/22. History: Hx of Present Illness: L foot swelling; Reason: Trauma; with Pain; Clinical Question(s): Fracture; Findings: Frontal, oblique, and lateral views of the left foot are compared to a prior study dated 12/29/2010. Deformity of the base of the second proximal phalanx is unchanged from the prior study. Osteopenia is noted. There are no fractures. The soft tissues are unremarkable. IMPRESSION: There is no acute osseous abnormality. WSN: [id number] Ordering Physician: Alexandro Mishra Dictated By: Urvashi Martinez MD Dictated Date/Time: 01/10/22 7:18 pm Reviewed By: Urvashi Martinez MD Signed By: Urvashi Martinez MD Signed Date/Time: 01/10/22 7:18 pm Transcribed By: LORENA Transcribed Date/Time: 01/10/22 7:17 pm Patient Care team information Personnel Name: Lisha Lopez MD Address: Address: [address] [place] [address]-
--- OUTSIDE RECORDS SUMMARY | 2022-11-26 21:42 | XMS_ITS | Continuity of Care Document ---
Author Name Unknown Organization [facility] Address [address] [place] [address]- Care Team Providers Care Panelboard Tank Pumper Name Role Phone Lisha Lopez MD Primary Care Physician Encounter [facility] [place] Date(s): 02/04/20 - 03/16/[address] [address]- Attending Physician: Mariela Sierra MD Admitting Physician: Mariela Sierra MD Referring Physician: Lisha Lopez MD Allergies, [...] given. 2Admin Note: 3 shots, exposure at [employer] Medications Aquatherapy Aquatherapy, See Instructions, # 3 box, Refills 11, Tot. Refills 11, Maintenance, aquatherapy bid for 6 weeks; dx=OA knees, 10/26/18 20:22:37 EDT, Compound Start Date: 10/26/18 Status: Ordered aspirin 81 mg oral delayed release tablet 81 mg, By Mouth, Daily, # 30 tablet, Refills 0, Tot. Refills 0, Maintenance, 12/25/19 11:17:00 EDT,Route to Pharmacy Electronically, [facility], 160, cm, 06/27/19 12:15:00 EDT, Height,75, kg, 03/17/19 14:27:00 EST, Dry Weight Start Date: 12/25/19 Status: Ordered cetirizine 10 mg oral tablet 1 tablet = 10 mg, By Mouth, Daily, # 14 tablet, 0 Refills, Maintenance, 03/06/20 16:12:00 EST, [facility][id number], Partial fill upon patient request if the [...] 4 Refills, Maintenance, 03/05/20 9:46:00 EST, Gel, [facility] #[id number], 160, cm, 01/16/20 11:22:00 EDT, Height, 75, kg, 03/17/19 14... Start Date: 03/05/20 Status: Ordered niacin 100 mg oral tablet 1 tablet = 100 mg, By Mouth, 2 times a day, for 90 days, with meals, # 180 tablet, 3 Refills, Hard Stop 10/07/20 11:46:00 EDT, 10/13/19 11:46:00 EDT, [facility][id number], 160, cm, 04/20/19 9:45:00 EST, Height, 75, kg, 03/17/19 14:27:00 EST, Dr... Start Date: 10/13/19 Stop Date: 10/07/20 Status: Ordered Travatan Z 0.004% ophthalmic solution 1 drops, Topically, Daily before dinner, # 2.5 mL, 1 Refills, Maintenance, 12/25/19 10:53:00 EDT, Solution, [facility], 1 drops Topically Daily before dinner, [...] knee(Confirmed) Active Pain in toe(Confirmed) 02/18/17 Active *[id number] Care Partn er Gill Sharpe(Confirmed) Active 1recurrent sx w Persantine MIBI, cardiac cath w/o CAD- Dr Garcia 2003 2aquatherapy @ [facility] 3Multiple hypodensities within the head of the right 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 had phys therapy but worse 7arms/legs 8distrust and fear of medications. wants to stick with natural treatments 9nasal mask [id number] delmi'd. Severe sleep apnea. 10did not tolerate CPAP. repeat titration pendg. Social History Social History Type Response Smoking Status Never smoker entered on: 04/09/14 Sex
--- OUTSIDE RECORDS SUMMARY | 2022-11-26 21:42 | XMS_ITS | Continuity of Care Document ---
Author Name Unknown Organization [facility] Address [address] [place] [address]- Care Team Providers Care Slitter Cut Off Operator Name Role Phone Lisha Lopez MD Primary Care Physician [place] [facility] [place]17[place] 03/24/19 [facility] [address] [place] [address]- [facility] Attending Physician: Eliazar Moss MD Referring Physician: Lisha Lopez MD Allergies, [...] given. 2Admin Note: 3 shots, exposure at [employer] Medications Aquatherapy Aquatherapy, See Instructions, # 3 box, Refills 11, Tot. Refills 11, Maintenance, aquatherapy bid for 6 weeks; dx=OA knees, 10/26/18 20:22:37 EDT, Compound Start Date: 10/26/18 Status: Ordered Bactrim DS 800 mg-160 mg oral tablet 1 tablet, By Mouth, 2 times a day, for 10 days, # 20 tablet, 0 Refills, Acute 03/27/19 15:01:12 EST, 03/17/19 15:01:12 EST, Tablet, [facility] #[id number], 1 tablet By Mouth 2 times a [...] 10/18/18 Stop Date: 10/13/19 Status: Ordered Tylenol with Codeine #3 300 mg-30 mg oral tablet 1, tablet, By Mouth, Every 4 hours, PRN, for 7 days, # 12 tablet, Refills 0, Tot. Refills 0, Acute,for pain, 03/28/19 11:58:00 EST, 03/21/19 11:58:00 EST, Route to Pharmacy Electronically, [facility] #[id number] Tablet, 160, cm, 03/21/19 11:33:0... Start Date: [...] 04/27/07 Active OA (osteoarthritis) of knee(Confirmed) Active *[id number]-[facility] Partn er-Amelia Mueller(Confirmed) Active 1recurrent sx w Persantine MIBI, cardiac cath w/o CAD- Dr Garcia 2003 2aquatherapy @ [facility] 3Multiple hypodensities within the head of the right 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 had phys therapy but worse 7arms/legs 8distrust and fear of medications. wants to stick with natural treatments 9nasal mask [id number] delmi'd. Severe sleep apnea. 10did not tolerate CPAP. repeat titration pendg. Vital Signs Most recent to oldest [Reference Range]: 1 Height 160 cm (03/17/19 2:27 PM) Weight 75 kg (03/17/19 2:27 PM) Oxygen Saturation [94-100 %] 100 % (03/17/19 2:27 PM) Pulse Rate [55-90 bpm] 80 bpm (03/17/19 2:27 PM) Body Mass Index [18.5-24.99] 29.3 *H* (03/17/19 2:27 PM) Blood Pressure [90-138/55-84 mm Hg] 152/ 83mm Hg *H* (03/17/19 2:27 PM) Respiratory Rate [16-30 br/min] 20 br/mi n (03/17/19 2:27 PM) Temperature [96.8-100.4 DegF] 98.1 DegF (03/17/19 2:27 PM) Blood pressure sites Arm, right (03/17/19 2:27 PM) Temperature Route Oral (03/17/19 2:27 PM) Dry Weight 75 kg (03/17/19 2:27 PM) Weight Obtained Via Standing scale (03/17/19 2:27 PM) Dry Weight Obtained Via Standing scale (03/17/19 2:27 PM) Social History Social History Type Response Smoking Status Never smoker entered on: 04/09/14 Sex
--- OUTSIDE RECORDS SUMMARY | 2022-11-26 21:42 | XMS_ITS | Continuity of Care Document ---
Author Name Unknown Organization [facility] Address [address] [place] [address]- Care Team Providers Care Wood Boatbuilder Apprentice Name Role Phone Lisha Lopez MD Primary Care Physician [place] [facility] [place] - 08/27/[address] [address]- Allergies, Adverse Reactions, Alerts Substance Reaction Severity Status morphine Active Contrast Dye Active Immunizations Given and Recorded Vaccine Date Status Refusal Reason diphtheria/tetanus/pertussis, acel(DTaP) 1 12/11/06 Given Meningococcal Polysaccharide Vaccine 2 03/24/97 Gi jamie Not Given Vaccine Date Status Refusal Reason pneumococcal 13-valent vaccine 07/11/16 Not Given Patient Refuses 1Admin Note: vis given. 2Admin Note: 3 shots, exposure at [employer] Medications B 100 Complex 1 tablet, By [...] 0 Refills, Maintenance, 08/14/21 10:31:00 EDT, Gel, [facility], Partial fill upon patient [...] 04/27/07 Active OA (osteoarthritis) of knee(Confirmed) Active *[phone] Care Partn er Gill Sharpe(Confirmed) Active Type 2 diabetes mellitus(Confirmed) Active 1aquatherapy @ [facility] 2fear and mistrust of medications 3distrust and fear of medications. wants to stick with natural treatments 4nasal mask [id number] delmi'd. Severe sleep apnea. 5did not tolerate CPAP. repeat titration pendg. Social History Social History Type Response Smoking Status Never smoker entered on: 04/09/14 Sex
--- OUTSIDE RECORDS SUMMARY | 2022-11-26 21:42 | XMS_ITS | Continuity of Care Document ---
Author Name Unknown Organization [facility] Address [address] [facility] [address] [place] [address]- Care Team Providers Care Sanitary Chemist Name Role Phone Lisha Lopez MD Primary Care Physician Encounter 01/07/22 - 02/07/22 [facility] [address], [address] [place] [address]- Attending Physician: Quinton Xie DO Admitting Physician: Quinton Xie DO Referring Physician: Quinton Xie DO Allergies, Adverse Reactions, Alerts Substance Reaction Severity Status morphine Active Contrast Dye Active Immunizations Given and Recorded Vaccine Date Status Refusal Reason diphtheria/tetanus/pertussis, acel(DTaP) 1 12/11/06 Given Meningococcal Polysaccharide Vaccine 2 03/24/97 Gi jamie Not Given Vaccine Date Status Refusal Reason pneumococcal 13-valent vaccine 07/11/16 Not Given Patient Refuses 1Admin Note: vis given. 2Admin Note: 3 shots, exposure at [employer] Medications acetaminophen-codeine 300 mg-30 mg oral tablet [...] 0 Refills, Maintenance, 08/14/21 10:31:00 EDT, Gel, [facility], Partial fill upon patient [...] 0 Refills, Maintenance, 01/07/22 15:36:00 EDT, Gel, [facility] #[id number], Partial fill upon patient request... Start Date: 01/07/22 Stop Date: 01/14/22 Status: Ordered diclofenac sodium 75 mg oral delayed release tablet 1 tablet = 75 mg, By Mouth, 2 times a day, # 28 tablet, 0 Refills, Maintenance, 01/11/22 9:43:00 EDT, EC Tablet, [facility] #[id number], Partial fill upon patient request if the [...] Active OA (osteoarthritis) of knee Confirmed Active *[id number] Vmware Consultant Gill Sharpe Confirmed Active Type 2 diabetes mellitus Confirmed Active 1aquatherapy @ [facility] 2fear and mistrust of medications 3distrust and fear of medications. wants to stick with natural treatments 4nasal mask [id number] delmi'd. Severe sleep apnea. 5did not tolerate CPAP. repeat titration pendg. Social History Social History Type Response Smoking Status Never smoker entered on: 04/09/14 Sex Patient Care team information Personnel Name: Lisha Lopez MD Address: Address: [address] [place] [address]
--- OUTSIDE RECORDS SUMMARY | 2022-11-26 21:42 | XMS_ITS | Continuity of Care Document ---
Author Name Unknown Organization [facility] Address [address] [place] [address]- Care Team Providers Care Crew Director Name Role Phone Lisha Lopez MD Primary Care Physician Encounter [facility] Date(s): 11/14/20 - 12/14/[address] [address]- Allergies, Adverse Reactions, Alerts Substance Reaction Severity Status morphine Active Contrast Dye Active Immunizations Given and Recorded Vaccine Date Status Refusal Reason diphtheria/tetanus/pertussis, acel(DTaP) 1 12/11/06 Given Meningococcal Polysaccharide Vaccine 2 03/24/97 Gi jamie Not Given Vaccine Date Status Refusal Reason pneumococcal 13-valent vaccine 07/11/16 Not Given Patient Refuses 1Admin Note: vis given. 2Admin Note: 3 shots, exposure at [employer] Medications acetaminophen 325 mg oral tablet 650 [...] 04/27/07 Active OA (osteoarthritis) of knee(Confirmed) Active *[id number] Care Partn er Gill Annemarie(Confirmed) Active Type 2 diabetes mellitus(Confirmed) Active 1aquatherapy @ [facility] 2fear and mistrust of medications 3distrust and fear of medications. wants to stick with natural treatments 4nasal mask [id number] delmi'd. Severe sleep apnea. 5did not tolerate CPAP. repeat titration pendg. Social History Social History Type Response Smoking Status Never smoker entered on: 04/09/14 Sex
--- OUTSIDE RECORDS SUMMARY | 2022-11-26 21:42 | XMS_ITS | Continuity of Care Document ---
Author Name Unknown Organization [facility] Address [address] [place] [address]- Care Team Providers Care Surgical Assist Name Role Phone Lisha Lopez MD Primary Care Physician Encounter [facility] [place] Date(s): 08/18/21 - 08/25/21 [facility] [address] [place], [place] [id number]- Attending Physician: Chandrika Valencia MD Allergies, Adverse Reactions, Alerts Substance Reaction Severity Status morphine Active Contrast Dye Active Immunizations Given and Recorded Vaccine Date Status Refusal Reason diphtheria/tetanus/pertussis, acel(DTaP) 1 12/11/06 Given Meningococcal Polysaccharide Vaccine 2 03/24/97 Gi jamie Not Given Vaccine Date Status Refusal Reason pneumococcal 13-valent vaccine 07/11/16 Not Given Patient Refuses 1Admin Note: vis given. 2Admin Note: 3 shots, exposure at [employer] Medications B 100 Complex 1 tablet, By [...] 0 Refills, Maintenance, 08/14/21 10:31:00 EDT, Gel, [facility], Partial fill [...] 04/27/07 Active OA (osteoarthritis) of knee(Confirmed) Active *[id number] Care Partn er Gill Sharpe(Confirmed) Active Type 2 diabetes mellitus(Confirmed) Active 1aquatherapy @ [facility] 2fear and mistrust of medications 3distrust and fear of medications. wants to stick with natural treatments 4nasal mask [id number] delmi'd. Severe sleep apnea. 5did not tolerate CPAP. repeat titration pendg. Social History Social History Type Response Smoking Status Never smoker entered on: 04/09/14 Sex
--- OUTSIDE RECORDS SUMMARY | 2022-11-26 21:42 | XMS_ITS | Continuity of Care Document ---
Author Name Unknown Organization [facility] Address [address] [place] [address]- Care Team Providers Care Elevator Service Technician Name Role Phone Lisha Lopez MD Primary Care Physician Encounter [facility] [place] Date(s): 06/02/19 - 10/28/19 [facility] [address] [place] [address]- [facility] Attending Physician: Milan MONTEJO, Celia Gao Referring Physician: Lisha Lopez MD Allergies, Adverse [...] given. 2Admin Note: 3 shots, exposure at [employer] Medications Aquatherapy Aquatherapy, See Instructions, # 3 [...] 4 Refills, Maintenance, 03/26/19 17:07:00 EST, Gel, [facility] #[id number], 160, cm, 03/26/19 16:28:00 EST, Height, 75, kg, 03/17/19... Start Date: 03/26/19 Status: Ordered niacin 100 mg oral tablet 1 tablet = 100 mg, By Mouth, 2 times a day, for 90 days, with meals, # 180 tablet, 3 Refills, Hard Stop 10/07/20 11:46:00 EDT, 10/13/19 11:46:00 EDT, [facility] #[id number], 160, cm, 04/20/19 9:45:00 EST, Height, 75, [...] 04/27/07 Active OA (osteoarthritis) of knee(Confirmed) Active *[id number]-Care Partn rita-Amelia Mueller(Confirmed) Active 1recurrent sx w Persantine MIBI, cardiac cath w/o CAD- Dr Garcia 2003 2aquatherapy @ [facility] 3Multiple hypodensities within the head of the right 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 had phys therapy but worse 7arms/legs 8distrust and fear of medications. wants to stick with natural treatments 9nasal mask [id number] delmi'd. Severe sleep apnea. 10did not tolerate CPAP. repeat titration pendg. Social History Social History Type Response Smoking Status Never smoker entered on: 04/09/14 Sex
--- OUTSIDE RECORDS SUMMARY | 2022-11-26 21:42 | XMS_ITS | Continuity of Care Document ---
Author Name Unknown Organization [facility] Address [address] [place] [address]- Care Team Providers Care Junk Removal Specialist Name Role Phone Lisha Lopez MD Primary Care Physician [place] [facility] [place] - 06/21/[address] [address]- [facility] Attending Physician: Holden Rosario Admitting Physician: Holden [...] given. 2Admin Note: 3 shots, exposure at [employer] Medications Aquatherapy Aquatherapy, See Instructions, # 3 [...] 4 Refills, Maintenance, 03/26/19 17:07:00 EST, Gel, [facility][id number], 160, cm, 03/26/19 16:28:00 EST, Height, 75, kg, 03/17/19... Start Date: 03/26/19 Status: Ordered niacin 100 mg oral tablet 1 tablet = 100 mg, By Mouth, 2 times a day, for 90 days, with meals, # 180 tablet, 3 Refills, Hard Stop 10/07/20 11:46:00 EDT, 10/13/19 11:46:00 EDT, [facility][id number], 160, cm, 04/20/19 9:45:00 EST, Height, 75, [...] 04/27/07 Active OA (osteoarthritis) of knee(Confirmed) Active *[id number]-[facility] Partn er-Amelia Lechugado(Confirmed) Active 1recurrent sx w Persantine MIBI, cardiac cath w/o CAD- Dr Garcia 2003 2aquatherapy @ [facility] 3Multiple hypodensities within the head of the right 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 had phys therapy but worse 7arms/legs 8distrust and fear of medications. wants to stick with natural treatments 9nasal mask [id number] delmi'd. Severe sleep apnea. 10did not tolerate CPAP. repeat titration pendg. Social History Social History Type Response Smoking Status Never smoker entered on: 04/09/14 Sex
--- OUTSIDE RECORDS SUMMARY | 2022-11-26 21:42 | XMS_ITS | Continuity of Care Document ---
Author Name Unknown Organization [facility] Address [address] [place] [address]- Care Team Providers Care Retail Salesman Name Role Phone Lisha Lopez MD Primary Care Physician [place] [facility] [place] - 04/08/[address] [address]- Allergies, Adverse Reactions, Alerts Substance Reaction Severity Status morphine Active Contrast Dye Active Immunizations Given and Recorded Vaccine Date Status Refusal Reason diphtheria/tetanus/pertussis, acel(DTaP) 1 12/11/06 Given Meningococcal Polysaccharide Vaccine 2 03/24/97 Gi jamie Not Given Vaccine Date Status Refusal Reason pneumococcal 13-valent vaccine 07/11/16 Not Given Patient Refuses 1Admin Note: vis given. 2Admin Note: 3 shots, exposure at [employer] Medications [employer] 50 Plus By Mouth, Daily, [...] 04/27/07 Active OA (osteoarthritis) of knee(Confirmed) Active *[id number] Care Partn er Gill Annemarie(Confirmed) Active Type 2 diabetes mellitus(Confirmed) Active 1aquatherapy @ [facility] 2fear and mistrust of medications 3distrust and fear of medications. wants to stick with natural treatments 4nasal mask [id number] delmi'd. Severe sleep apnea. 5did not tolerate CPAP. repeat titration pendg. Social History Social History Type Response Smoking Status Never smoker entered on: 04/09/14 Sex
--- OUTSIDE RECORDS SUMMARY | 2022-11-26 21:42 | XMS_ITS | Continuity of Care Document ---
Author Name Unknown Organization [facility] ter Address [address] [place] [address]- Care Team Providers Care Special Education Educational Assistant Name Role Phone Lisha Lopez MD Primary Care Physician En[place] [facility] [place](s): 09/08/20 - 10/11/[address] [address]- Attending Physician: Chandrika Valencia MD Admitting Physician: Chandrika Valencia MD Referring Physician: Chandrika Valencia MD Allergies, Adverse Reactions, Alerts Substance Reaction Severity Status morphine Active Contrast Dye Active Immunizations Given and Recorded Vaccine Date Status Refusal Reason diphtheria/tetanus/pertussis, acel(DTaP) 1 12/11/06 Given Meningococcal Polysaccharide Vaccine 2 03/24/97 Gi jamie Not Given Vaccine Date Status Refusal Reason pneumococcal 13-valent vaccine 07/11/16 Not Given Patient Refuses 1Admin Note: vis given. 2Admin Note: 3 shots, exposure at [employer] Medications acetaminophen 325 mg oral tablet [...] 04/27/07 Active OA (osteoarthritis) of knee(Confirmed) Active *[id number] Care Partn er Gill Sharpe(Confirmed) Active Type 2 diabetes mellitus(Confirmed) Active 1aquatherapy @ [facility] 2fear and mistrust of medications 3distrust and fear of medications. wants to stick with natural treatments 4nasal mask [id number] delmi'd. Severe sleep apnea. 5did not tolerate CPAP. repeat titration pendg. Social History Social History Type Response Smoking Status Never smoker entered on: 04/09/14 Sex
--- OUTSIDE RECORDS SUMMARY | 2022-11-26 21:42 | XMS_ITS | Continuity of Care Document ---
Author Name Unknown Organization [facility] Address [address] [place] [address]- Care Team Providers Care Revenue Cycle Analyst Name Role Phone Lisha Lopez MD Primary Care Physician Encounter [facility] [place] Date(s): 11/06/21 - 12/06/[address] [address]- Allergies, Adverse Reactions, Alerts Substance Reaction Severity Status morphine Active Contrast Dye Active Immunizations Given and Recorded Vaccine Date Status Refusal Reason diphtheria/tetanus/pertussis, acel(DTaP) 1 12/11/06 Given Meningococcal Polysaccharide Vaccine 2 03/24/97 Gi jamie Not Given Vaccine Date Status Refusal Reason pneumococcal 13-valent vaccine 07/11/16 Not Given Patient Refuses 1Admin Note: vis given. 2Admin Note: 3 shots, exposure at [employer] Medications albendazole 200 mg oral tablet 2 tablet = 400 mg, By Mouth, Once, with meals; may repeat in 2 weeks, # 4 tablet, 0 Refills, Soft Stop, 09/09/21 11:45:00 EDT, Tablet, [facility] #[id number], Partial fill upon patient request if the [...] 04/27/07 Active OA (osteoarthritis) of knee(Confirmed) Active *[id number] Care Partn er Gill Sharpe(Confirmed) Active Type 2 diabetes mellitus(Confirmed) Active 1aquatherapy @ [facility] 2fear and mistrust of medications 3distrust and fear of medications. wants to stick with natural treatments 4nasal mask [id number] delmi'd. Severe sleep apnea. 5did not tolerate CPAP. repeat titration pendg. Social History Social History Type Response Smoking Status Never smoker entered on: 04/09/14 Sex Care Team Personnel Name: Lisha Lopez MD Address: [address] [place] [address]-
--- OUTSIDE RECORDS SUMMARY | 2022-11-26 21:42 | XMS_ITS | Continuity of Care Document ---
Author Name Unknown Organization [facility] ter Address [address] [place] [address]- Care Team Providers Care Grinding Room Supervisor Name Role Phone Lisha Lopez MD Primary Care Physician Encounter [facility] [place] Date(s): 07/14/20 - 08/12/[address] [address] Attending Physician: Lisha Lopez MD Admitting Physician: [...] 3 shots, exposure at [employer] Medications acetaminophen 325 mg oral tablet [...] 04/27/07 Active OA (osteoarthritis) of knee(Confirmed) Active *[id number] Care Partn er Gill Sharpe(Confirmed) Active Type 2 diabetes mellitus(Confirmed) Active 1aquatherapy @ [facility] 2fear and mistrust of medications 3distrust and fear of medications. wants to stick with natural treatments 4nasal mask [id number] delmi'd. Severe sleep apnea. 5did not tolerate CPAP. repeat titration pendg. Social History Social History Type Response Smoking Status Never smoker entered on: 04/09/14 Sex
--- OUTSIDE RECORDS SUMMARY | 2022-11-26 21:42 | XMS_ITS | Continuity of Care Document ---
Author Name Unknown Organization [facility] Address [address] [place] [address]- Care Team Providers Care Field Technical Assistant Name Role Phone Lisha Lopez MD Primary [id number] Date[facility]/03/[facility] - 03/07/[address] [address] Attending Physician: Lisha Lopez MD Admitting Physician: [...] Refills, Maintenance, 08/14/21 10:31:00 EDT, Gel, [facility], Partial fill upon patient request if the prescription is for a schedule II opioid drug., 160, cm, 05... Start Date: 08/14/21 Status: Ordered diclofenac 1% topical gel 1 application, Topically, 4 times a day, 2 g per dose, 4 x a day. not to exceed 8 grams/day/single joint of upper extremities, # 100 Gm, 0 Refills, Maintenance, 01/07/22 15:36:00 EDT, Gel, [facility] #[id number], Partial fill upon patient request... Start Date: 01/07/22 Stop Date: 01/14/22 Status: Ordered diclofenac sodium 75 mg oral delayed release tablet 1 tablet = 75 mg, By Mouth, 2 times a day, # 28 tablet, 0 Refills, Maintenance, 01/11/22 9:43:00 EDT, EC Tablet, [facility] #[id number], Partial fill upon patient request if the [...] Active OA (osteoarthritis) of knee Confirmed Active *[id number]preter Gill Sharpe Confirmed Active Type 2 diabetes mellitus Confirmed Active 1aquatherapy @ [facility] 2fear and mistrust of medications 3distrust and fear of medications. wants to stick with natural treatments 4nasal mask [id number] delmi'd. Severe sleep apnea. 5did not tolerate CPAP. repeat titration pendg. Social History Social History Type Response Smoking Status Never smoker entered on: 04/09/14 Sex Patient Care team information Care Team Personnel Name: Lara Kern RN Position: [facility] RN Member Role: Primary Care Nurse Name: Lisha Lopez MD Position: [facility] Primary Care Physician Member Role: PCP Address: Address: [address] [place] [address]- Name: Marbella Costa RN Position: [facility] RN Member Role: Primary Care Nurse Name: Alisia Rojo RN Position: [facility] ED RN W/OE and Tasks Member Role: Primary Care Nurse Name: Monica Peña RN Position: S RN Member Role: Primary Care Nurse Name: Kiersten Thomas RN Position: S RN Member Role: Primary Care Nurse Care Team Related Persons Name: ALEKSANDAR SLOAN Address: [place] [address]
--- OUTSIDE RECORDS SUMMARY | 2022-11-26 21:42 | XMS_ITS | Continuity of Care Document ---
Author Name Unknown Organization [facility] Address [address] [place] [address]- Care Team Providers Care De Ionizer Operator Name Role Phone Lisha Lopez MD Primary Care Physician Encounter [facility] [place] Date(s): 03/24/20 - 04/23/[address] [address]- Attending Physician: Holden Rosario Admitting Physician: AdmHolden wood Referring Physician: AdmtrHolden Allergies, Adverse Reactions, Alerts Substance Reaction Severity Status morphine Active Contrast Dye Active Immunizations Given and Recorded Vaccine Date Status Refusal Reason diphtheria/tetanus/pertussis, acel(DTaP) 1 12/11/06 Given Meningococcal Polysaccharide Vaccine 2 03/24/97 Gi jamie Not Given Vaccine Date Status Refusal Reason pneumococcal 13-valent vaccine 07/11/16 Not Given Patient Refuses 1Admin Note: vis given. 2Admin Note: 3 shots, exposure at [employer] Medications Aquatherapy Aquatherapy, See Instructions, # 3 box, Refills 11, Tot. Refills 11, Maintenance, aquatherapy bid for 6 weeks; dx=OA knees, 10/26/18 20:22:37 EDT, Compound Start Date: 10/26/18 Status: Ordered aspirin 81 mg oral delayed release tablet 81 mg, By Mouth, Daily, # 30 tablet, Refills 0, Tot. Refills 0, Maintenance, 12/25/19 11:17:00 EDT,Route to Pharmacy Electronically, [facility], 160, cm, 06/27/19 12:15:00 EDT, Height,75, kg, 03/17/19 14:27:00 EST, Dry Weight Start Date: 12/25/19 Status: Ordered cetirizine 10 mg oral tablet 1 tablet = 10 mg, By Mouth, Daily, # 14 tablet, 0 Refills, Maintenance, 03/06/20 16:12:00 EST, [facility] #[id number], Partial fill upon patient request if the [...] 4 Refills, Maintenance, 03/05/20 9:46:00 EST, Gel, [facility] #[id number], 160, cm, 01/16/20 11:22:00 EDT, Height, 75, kg, 03/17/19 14... Start Date: 03/05/20 Status: Ordered niacin 100 mg oral tablet 1 tablet = 100 mg, By Mouth, 2 times a day, for 90 days, with meals, # 180 tablet, 3 Refills, Hard Stop 10/07/20 11:46:00 EDT, 10/13/19 11:46:00 EDT, [facility] #[id number], 160, cm, 04/20/19 9:45:00 EST, Height, 75, kg, 03/17/19 14:27:00 EST, . Start Date: 10/13/19 Stop Date: 10/07/20 Status: Ordered Travatan Z 0.004% ophthalmic solution 1 drops, Topically, Daily before dinner, # 2.5 mL, 1 Refills, Maintenance, 12/25/19 10:53:00 EDT, Solution, [facility], 1 drops Topically Daily before dinner, [...] knee(Confirmed) Active Pain in toe(Confirmed) 02/18/17 Active *[id number] Care Partn er Gill Annemarie(Confirmed) Active 1recurrent sx w Persantine MIBI, cardiac cath w/o CAD- Dr Garcia 2003 2aquatherapy @ [facility] 3Multiple hypodensities within the head of the right 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 had phys therapy but worse 7arms/legs 8distrust and fear of medications. wants to stick with natural treatments 9nasal mask [id number] delmi'd. Severe sleep apnea. 10did not tolerate CPAP. repeat titration pendg. Social History Social History Type Response Smoking Status Never smoker entered on: 04/09/14 Sex
--- OUTSIDE RECORDS SUMMARY | 2022-11-26 21:42 | XMS_ITS | Continuity of Care Document ---
Author Name Unknown Organization [facility] Address [address] [place] [address]- Care Team Providers Care Softlines Supervisor Name Role Phone Lisha Lopez MD Primary Care Physician Encounter [facility] [place] [facility] [place] [id number] Date(s): 07/21/21 - 08/28/[address] [address]- Attending Physician: Lisha Lopez MD Admitting Physician: [...] Refills, Maintenance, 08/14/21 10:31:00 EDT, Gel, [facility], Partial fill upon patient request [...] 04/27/07 Active OA (osteoarthritis) of knee(Confirmed) Active *[id number] Care Partn er Gill Sharpe(Confirmed) Active Type 2 diabetes mellitus(Confirmed) Active 1aquatherapy @ [facility] 2fear and mistrust of medications 3distrust and fear of medications. wants to stick with natural treatments 4nasal mask [id number] delmi'd. Severe sleep apnea. 5did not tolerate CPAP. repeat titration pendg. Social History Social History Type Response Smoking Status Never smoker entered on: 04/09/14 Sex
--- OUTSIDE RECORDS SUMMARY | 2022-11-26 21:42 | XMS_ITS | Continuity of Care Document ---
Author Name Unknown Organization [facility] Address [address] [place] [address]- Care Team Providers Care Pet Resort Concierge Name Role Phone Lisha Lopez MD Primary Care Physician Encounter [facility] [place] Date(s): 04/01/21 - 04/08/21 [facility] [address] [place] [address]- Attending Physician: Leonid STOCK, Mariela Gao Allergies, Adverse Reactions, Alerts Substance Reaction Severity Status morphine Active Contrast Dye Active Immunizations Given and Recorded Vaccine Date Status Refusal Reason diphtheria/tetanus/pertussis, acel(DTaP) 1 12/11/06 Given Meningococcal Polysaccharide Vaccine 2 03/24/97 Gi jamie Not Given Vaccine Date Status Refusal Reason pneumococcal 13-valent vaccine 07/11/16 Not Given Patient Refuses 1Admin Note: vis given. 2Admin Note: 3 shots, exposure at [employer] Medications Centravites 50 Plus By Mouth, Daily, [...] 04/27/07 Active OA (osteoarthritis) of knee(Confirmed) Active *[id number] Care Partn er Gill Sharpe(Confirmed) Active Type 2 diabetes mellitus(Confirmed) Active 1aquatherapy @ [facility] 2fear and mistrust of medications 3distrust and fear of medications. wants to stick with natural treatments 4nasal mask [id number] delmi'd. Severe sleep apnea. 5did not tolerate CPAP. repeat titration pendg. Vital Signs Most recent to oldest [Reference Range]: 1 Height 160 cm (04/01/21 3:58 PM) Weight 75.5 kg (04/01/21 3:58 PM) Body Mass Index [18.5-24.99] 29.49 *H* (04/01/21 3:58 PM) Blood Pressure [90-138/55-84 mm Hg] 140/ 80mm Hg *H* (04/01/21 3:58 PM) Blood pressure sites Arm, right (04/01/21 3:58 PM) Weight Obtained Via Standing scale (04/01/21 3:58 PM) Social History Social History Type Response Smoking Status Never smoker entered on: 04/09/14 Sex
--- OUTSIDE RECORDS SUMMARY | 2022-11-26 21:42 | XMS_ITS | Continuity of Care Document ---
Author Name Unknown Organization [facility] Address [address] [place] [address]- Care Team Providers Care Branch Administrator Name Role Phone Lisha Lopez MD Primary Care Physician [place] [facility] [id number] Date(s): 09/28/19 - 10/28/19 [facility] [address] [place] [address]- [facility] Attending Physician: Holden Rosario Admitting Physician: Holden Rosario Referring Physician: AdmHolden wood Allergies, Adverse Reactions, Alerts Substance Reaction Severity Status morphine Active Contrast Dye Active Immunizations Given and Recorded Vaccine Date Status Refusal Reason diphtheria/tetanus/pertussis, acel(DTaP) 1 12/11/06 Given Meningococcal Polysaccharide Vaccine 2 03/24/97 Gi jamie Not Given Vaccine Date Status Refusal Reason pneumococcal 13-valent vaccine 07/11/16 Not Given Patient Refuses 1Admin Note: vis given. 2Admin Note: 3 shots, exposure at [employer] Medications Aquatherapy Aquatherapy, See Instructions, # [...] extremities, # 100 Gm, 4 Refills, Maintenance, 12/23/19 17:07:00 EST, Gel, [facility] #[id number], 160, cm, 03/26/19 16:28:00 EST, Height, 75, kg, 03/17/19... Start Date: 03/26/19 Status: Ordered niacin 100 mg oral tablet 1 tablet = 100 mg, By Mouth, 2 times a day, for 90 days, with meals, # 180 tablet, 3 Refills, Hard Stop 10/07/20 11:46:00 EDT, 10/13/19 11:46:00 EDT, [facility] #[id number], 160, cm, 04/20/19 9:45:00 EST, Height, 75, [...] 04/27/07 Active OA (osteoarthritis) of knee(Confirmed) Active *[id number]-Care Partn rita-Amelia Mueller(Confirmed) Active 1recurrent sx w Persantine MIBI, cardiac cath w/o CAD- Dr Garcia 2003 2aquatherapy @ [facility] 3Multiple hypodensities within the head of the right 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 had phys therapy but worse 7arms/legs 8distrust and fear of medications. wants to stick with natural treatments 9nasal mask [id number] delmi'd. Severe sleep apnea. 10did not tolerate CPAP. repeat titration pendg. Social History Social History Type Response Smoking Status Never smoker entered on: 04/09/14 Sex
--- OUTSIDE RECORDS SUMMARY | 2022-11-26 21:42 | XMS_ITS | Continuity of Care Document ---
Author Name Unknown Organization [facility] Address [address] [place] [address]- Care Team Providers Care Rv Technician Name Role Phone Lisha Lopez MD Primary Care Physician Encounter [facility] Date(s): 03/18/21 - 04/22/21 [facility] [address] [place] [address]- Attending Physician: Not on Staff, Attending MD Allergies, Adverse Reactions, Alerts Substance Reaction Severity Status morphine Active Contrast Dye Active Immunizations Given and Recorded Vaccine Date Status Refusal Reason diphtheria/tetanus/pertussis, acel(DTaP) 1 12/11/06 Given Meningococcal Polysaccharide Vaccine 2 03/24/97 Gi jamie Not Given Vaccine Date Status Refusal Reason pneumococcal 13-valent vaccine 07/11/16 Not Given Patient Refuses 1Admin Note: vis given. 2Admin Note: 3 shots, exposure at [employer] Medications Centravites 50 Plus By Mouth, Daily, [...] 0 Refills, Maintenance, 04/17/21 16:38:00 EST, Gel, [facility] #[id number], Partial fill upon patient request if the [...] 04/27/07 Active OA (osteoarthritis) of knee(Confirmed) Active *[id number] Care Partn er Gill Sharpe(Confirmed) Active Type 2 diabetes mellitus(Confirmed) Active 1aquatherapy @ [facility] 2fear and mistrust of medications 3distrust and fear of medications. wants to stick with natural treatments 4nasal mask [id number] delmi'd. Severe sleep apnea. 5did not tolerate CPAP. repeat titration pendg. Social History Social History Type Response Smoking Status Never smoker entered on: 04/09/14 Sex
--- OUTSIDE RECORDS SUMMARY | 2022-11-26 21:42 | XMS_ITS | Continuity of Care Document ---
Author Name Unknown Organization [facility] Address [address] [place] [address]- Care Team Providers Care Pathology Secretary/Transcriptionist Name Role Phone Lisha Lopez MD Primary Care Physician En[place] [facility] [place](s): 06/18/19 - 09/13/19 [facility] [address] [place] [address]- [facility] Attending Physician: Huy Harrison MD, V Admitting Physician: Huy Harrison MD, V Referring Physician: Lisha Lopez MD Allergies, Adverse [...] given. 2Admin Note: 3 shots, exposure at [employer] Medications Aquatherapy Aquatherapy, See Instructions, # 3 [...] 03/26/19 17:07:00 EST, Gel, [facility] #[id number], 160, cm, 03/26/19 16:28:00 EST, Height, 75, kg, 03/17/19... Start Date: 03/26/19 Status: Ordered niacin 100 mg oral tablet 1 tablet = 100 mg, By Mouth, 2 times a day, for 90 days, with meals, # 180 tablet, 3 Refills, Hard Stop 10/07/20 11:46:00 EDT, 10/13/19 11:46:00 EDT, [facility] #[id number], 160, cm, 04/20/19 9:45:00 EST, Height, 75, [...] 04/27/07 Active OA (osteoarthritis) of knee(Confirmed) Active *[id number]-[facility] Partn rita-Amelia Mueller(Confirmed) Active 1recurrent sx w Persantine MIBI, cardiac cath w/o CAD- Dr Garcia 2003 2aquatherapy @ [facility] 3Multiple hypodensities within the head of the right 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 had phys therapy but worse 7arms/legs 8distrust and fear of medications. wants to stick with natural treatments 9nasal mask [id number] delmi'd. Severe sleep apnea. 10did not tolerate CPAP. repeat titration pendg. Social History Social History Type Response Smoking Status Never smoker entered on: 04/09/14 Sex
--- OUTSIDE RECORDS SUMMARY | 2022-11-26 21:42 | XMS_ITS | Continuity of Care Document ---
Author Name Unknown Organization [facility] Address [address] [place] [address]- Care Team Providers Care Director Of First Impressions Name Role Phone Lisha Lopez MD Primary Care Physician Encounter [facility] Date(s): 01/04/20 - 02/03/[address] [address]- [facility] Allergies, Adverse Reactions, Alerts Substance Reaction Severity Status morphine Active Contrast Dye Active Immunizations Given and Recorded Vaccine Date Status Refusal Reason diphtheria/tetanus/pertussis, acel(DTaP) 1 12/11/06 Given Meningococcal Polysaccharide Vaccine 2 03/24/97 Gi jamie Not Given Vaccine Date Status Refusal Reason pneumococcal 13-valent vaccine 07/11/16 Not Given Patient Refuses 1Admin Note: vis given. 2Admin Note: 3 shots, exposure at [employer] Medications Aquatherapy Aquatherapy, See Instructions, # 3 box, Refills 11, Tot. Refills 11, Maintenance, aquatherapy bid for 6 weeks; dx=OA knees, 10/26/18 20:22:37 EDT, Compound Start Date: 10/26/18 Status: Ordered aspirin 81 mg oral delayed release tablet 81 mg, By Mouth, Daily, # 30 tablet, Refills 0, Tot. Refills 0, Maintenance, 12/25/19 11:17:00 EDT,Route to Pharmacy Electronically, [facility], 160, cm, 06/27/19 12:15:00 EDT, Height,75, kg, 03/17/19 14:27:00 EST, Dry Weight Start Date: 12/25/19 Status: Ordered CPAP Equipment See Instructions, # 1 box, Refills 1, Tot. Refills 1, Maintenance, CPAP supplies; Cpap 7mm H20; dx=SHAYY, 06/08/17 12:58:54, Compound Start Date: 06/08/17 Status: Ordered diclofenac 1% topical gel 1 application, Topically, 4 times a day, not to exceed 16 grams/day/single joint of lower extremities, # 100 Gm, 4 Refills, Maintenance, 03/26/19 17:07:00 EST, Gel, [facility] #[id number], 160, cm, 03/26/19 16:28:00 EST, Height, 75, kg, 03/17/19... Start Date: 03/26/19 Status: Ordered niacin 100 mg oral tablet 1 tablet = 100 mg, By Mouth, 2 times a day, for 90 days, with meals, # 180 tablet, 3 Refills, Hard Stop 10/07/20 11:46:00 EDT, 10/13/19 11:46:00 EDT, [facility] #[id number], 160, cm, 04/20/19 9:45:00 EST, Height, 75, kg, 03/17/19 14:27:00 EST, . Start Date: 10/13/19 Stop Date: 10/07/20 Status: Ordered Travatan Z 0.004% ophthalmic solution 1 drops, Topically, Daily before dinner, # 2.5 mL, 1 Refills, Maintenance, 12/25/19 10:53:00 EDT, [facility], 1 drops Topically Daily [...] 04/27/07 Active OA (osteoarthritis) of knee(Confirmed) Active *[id number]-Care Partn rita-Amelia Mueller(Confirmed) Active 1recurrent sx w Persantine MIBI, cardiac cath w/o CAD- Dr Garcia 2003 2aquatherapy @ [facility] 3Multiple hypodensities within the head of the right 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 had phys therapy but worse 7arms/legs 8distrust and fear of medications. wants to stick with natural treatments 9nasal mask [id number] delmi'd. Severe sleep apnea. 10did not tolerate CPAP. repeat titration pendg. Social History Social History Type Response Smoking Status Never smoker entered on: 04/09/14 Sex
--- OUTSIDE RECORDS SUMMARY | 2022-11-26 21:42 | XMS_ITS | Continuity of Care Document ---
Author Name Unknown Organization [facility] Address [address] [place] [address]- Care Team Providers Care Senior Designer Name Role Phone Lisha Lopez MD Primary Care Physician Encounter [facility] Date(s): 04/06/19 - 07/19/19 [facility] [address] [place] [address] [facility] Attending Physician: Kasandra Lambert MD Admitting Physician: Kasandra Lambert MD Referring Physician: Chrystal Miller Allergies, Adverse Reactions, Alerts Substance Reaction Severity Status morphine Active Contrast Dye Active Immunizations Given and Recorded Vaccine Date Status Refusal Reason diphtheria/tetanus/pertussis, acel(DTaP) 1 12/11/06 Given Meningococcal Polysaccharide Vaccine 2 03/24/97 Gi jamie Not Given Vaccine Date Status Refusal Reason pneumococcal 13-valent vaccine 07/11/16 Not Given Patient Refuses 1Admin Note: vis given. 2Admin Note: 3 shots, exposure at [employer] Medications Aquatherapy Aquatherapy, See Instructions, # [...] 4 Refills, Maintenance, 03/26/19 17:07:00 EST, Gel, [facility] #[id number], 160, cm, 03/26/19 16:28:00 EST, Height, 75, kg, 03/17/19... Start Date: 03/26/19 Status: Ordered niacin 100 mg oral tablet 1 tablet = 100 mg, By Mouth, 2 times a day, for 90 days, with meals, # 180 tablet, 3 Refills, Hard Stop 10/07/20 11:46:00 EDT, 10/13/19 11:46:00 EDT, [facility] #[id number], 160, cm, 04/20/19 9:45:00 EST, Height, 75, [...] SHAYY - Obstructive sleep apnea(Confirmed) 9, 10 1/24/08 Active OA (osteoarthritis) of knee(Confirmed) Active *[id number]-[facility] er-Amelia Ervin(Confirmed) Active 1recurrent sx w Persantine MIBI, cardiac [...] to stick with natural treatments 9nasal mask [id number] delmi'd. Severe sleep apnea. 10did not tolerate CPAP. repeat titration pendg. Social History Social History Type Response Smoking Status Never smoker entered on: 04/09/14 Sex
--- OUTSIDE RECORDS SUMMARY | 2022-11-26 21:42 | XMS_ITS | Continuity of Care Document ---
Author Name Unknown Organization [facility] Address [address] [place] [address]- Care Team Providers Care Trench Digger Helper Name Role Phone Lisha Lopez MD Primary Care Physician Encounter [facility] Date(s): 12/05/19 - 01/04/[address] [address]- [facility] Allergies, Adverse Reactions, Alerts Substance Reaction Severity Status morphine Active Contrast Dye Active Immunizations Given and Recorded Vaccine Date Status Refusal Reason diphtheria/tetanus/pertussis, acel(DTaP) 1 12/11/06 Given Meningococcal Polysaccharide Vaccine 2 03/24/97 Gi jamie Not Given Vaccine Date Status Refusal Reason pneumococcal 13-valent vaccine 07/11/16 Not Given Patient Refuses 1Admin Note: vis given. 2Admin Note: 3 shots, exposure at [employer] Medications acetaZOLAMIDE 250 mg oral tablet 250 mg, 1, tablet, By Mouth, 2 times a day, # 14 tablet, Refills 0, Tot. Refills 0, Maintenance, 12/25/19 10:54:00 EDT, Route to Pharmacy Electronically, [facility], 160, cm, 06/27/19 12:15:00 EDT, Height, 75, kg, 03/17/19 14:27:00 EST,... Start Date: 12/25/19 Stop Date: 01/01/20 Status: Ordered Aquatherapy Aquatherapy, See Instructions, # 3 box, Refills 11, Tot. Refills 11, Maintenance, aquatherapy bid for 6 weeks; dx=OA knees, 10/26/18 20:22:37 EDT, Compound Start Date: 10/26/18 Status: Ordered aspirin 81 mg oral delayed release tablet 81 mg, By Mouth, Daily, # 30 tablet, Refills 0, Tot. Refills 0, Maintenance, 12/25/19 11:17:00 EDT,Route to Pharmacy Electronically, [facility], 160, cm, 06/27/19 12:15:00 [...] 4 Refills, Maintenance, 03/26/19 17:07:00 EST, Gel, [facility][id number], 160, cm, 03/26/19 16:28:00 EST, Height, 75, kg, 03/17/19... Start Date: 03/26/19 Status: Ordered Lipitor 40 mg oral tablet 1 tablet = 40 mg, By Mouth, Daily, # 30 tablet, 0 Refills, Maintenance, 12/25/19 11:16:00 EDT, Tablet, [facility], 160, cm, 06/27/19 12:15:00 EDT, Height, 75, kg, 03/17/19 14:27:00 EST,Dry Weight Start Date: 12/25/19 Status: Ordered niacin 100 mg oral tablet 1 tablet = 100 mg, By Mouth, 2 times a day, for 90 days, with meals, # 180 tablet, 3 Refills, Hard Stop 10/07/20 11:46:00 EDT, 10/13/19 11:46:00 EDT, [facility][id number], 160, cm, 04/20/19 9:45:00 EST, Height, 75, kg, 03/17/19 14:27:00 EST, Start Date: 10/13/19 Stop Date: 10/07/20 Status: Ordered timolol maleate 0.25% ophthalmic solution 1 drops, Eyes, Both, 2 times a day, # 10 mL, 1 Refills, Maintenance, 12/25/19 10:54:00 EDT, Ophth Solution, [facility], 1 drops Eyes, Both 2 times a day, 160, cm, 06/27/19 12:15:00 EDT,Height, 75, kg, 03/17/19 14:27:00 EST, Dry Weight Start Date: 12/25/19 Status: Ordered Travatan Z 0.004% ophthalmic solution 1 drops, Topically, Daily before dinner, # 2.5 mL, 1 Refills, Maintenance, 12/25/19 10:53:00 EDT, Solution, [facility], 1 drops Topically Daily before dinner, 160, cm, 06/27/19 12:15:00EDT, Height, 75, kg, 03/17/19 14:27:00 EST, Dry Weight Start Date: 12/25/19 Status: Ordered Problem List Condition Effective Dates [...] 04/27/07 Active OA (osteoarthritis) of knee(Confirmed) Active *[id number]-Care Partn rita-Amelia Mueller(Confirmed) Active 1recurrent sx w [...] to stick with natural treatments 9nasal mask [id number] delmi'd. Severe sleep apnea. 10did not tolerate CPAP. repeat titration pendg. Social History Social History Type Response Smoking Status Never smoker entered on: 04/09/14 Sex
--- OUTSIDE RECORDS SUMMARY | 2022-11-26 21:43 | XMS_ITS | Continuity of Care Document ---
Author Name Unknown Organization [facility] Address [address] [place] [address]- Care Team Providers Care Exploration Manager Name Role Phone Lisha Lopez MD Primary Care Physician Encounter [facility] [place] Date(s): 08/26/21 - 09/25/[address] [address]- Allergies, Adverse Reactions, Alerts Substance Reaction Severity Status morphine Active Contrast Dye Active Immunizations Given and Recorded Vaccine Date Status Refusal Reason diphtheria/tetanus/pertussis, acel(DTaP) 1 12/11/06 Given Meningococcal Polysaccharide Vaccine 2 03/24/97 Gi jamie Not Given Vaccine Date Status Refusal Reason pneumococcal 13-valent vaccine 07/11/16 Not Given Patient Refuses 1Admin Note: vis given. 2Admin Note: 3 shots, exposure at [employer] Medications albendazole 200 mg oral tablet 2 tablet = 400 mg, By Mouth, Once, with meals; may repeat in 2 weeks, # 4 tablet, 0 Refills, Soft Stop, 09/09/21 11:45:00 EDT, Tablet, [facility] #[id number], Partial fill upon patient request if the [...] 0 Refills, Maintenance, 08/14/21 10:31:00 EDT, Gel, [facility], Partial fill upon patient request [...] 04/27/07 Active OA (osteoarthritis) of knee(Confirmed) Active *[id number] Care Partn er Gill Sharpe(Confirmed) Active Type 2 diabetes mellitus(Confirmed) Active 1aquatherapy @ [facility] 2fear and mistrust of medications 3distrust and fear of medications. wants to stick with natural treatments 4nasal mask [id number] delmi'd. Severe sleep apnea. 5did not tolerate CPAP. repeat titration pendg. Social History Social History Type Response Smoking Status Never smoker entered on: 04/09/14 Sex
--- OUTSIDE RECORDS SUMMARY | 2022-11-26 21:43 | XMS_ITS | Continuity of Care Document ---
Author Name Unknown Organization [facility] Address [address] [place] [address]- Care Team Providers Care Professor Of Psychology Name Role Phone Lisha Lopez MD Primary Care Physician Encounter [facility] [place] Date(s): 06/16/20 - 07/16/[address] [address]- Allergies, Adverse Reactions, Alerts Substance Reaction Severity Status morphine Active Contrast Dye Active Immunizations Given and Recorded Vaccine Date Status Refusal Reason diphtheria/tetanus/pertussis, acel(DTaP) 1 12/11/06 Given Meningococcal Polysaccharide Vaccine 2 03/24/97 Gi jamie Not Given Vaccine Date Status Refusal Reason pneumococcal 13-valent vaccine 07/11/16 Not Given Patient Refuses 1Admin Note: vis given. 2Admin Note: 3 shots, exposure at [employer] Medications acetaminophen 325 mg oral tablet 650 [...] dx SHAYY severe, unable to tolerate CPAP, 07/16/20 9:53:00 EDT, Supply Start Date: 07/16/20 Status: Ordered Vitamin C 500 mg oral [...] 04/27/07 Active OA (osteoarthritis) of knee(Confirmed) Active *[id number] Care Partn er Gill Annemarie(Confirmed) Active Type 2 diabetes mellitus(Confirmed) Active 1aquatherapy @ [facility] 2fear and mistrust of medications 3distrust and fear of medications. wants to stick with natural treatments 4nasal mask [id number] delmi'd. Severe sleep apnea. 5did not tolerate CPAP. repeat titration pendg. Social History Social History Type Response Smoking Status Never smoker entered on: 04/09/14 Sex
--- OUTSIDE RECORDS SUMMARY | 2022-11-26 21:43 | XMS_ITS | Continuity of Care Document ---
Author Name Unknown Organization [facility] Address [address] [place] [address]- Care Team Providers Care Clinical Transplant Coordinator Name Role Phone Lisha Lopez MD Primary Care Physician Encounter [facility] Date(s): 06/11/20 - 07/24/[address] [address]- Attending Physician: Ricardo Stack OD Admitting Physician: Ricardo Stack OD Allergies, Adverse Reactions, Alerts Substance Reaction Severity Status morphine Active Contrast Dye Active Immunizations Given and Recorded Vaccine Date Status Refusal Reason diphtheria/tetanus/pertussis, acel(DTaP) 1 12/11/06 Given Meningococcal Polysaccharide Vaccine 2 03/24/97 Gi jamie Not Given Vaccine Date Status Refusal Reason pneumococcal 13-valent vaccine 07/11/16 Not Given Patient Refuses 1Admin Note: vis given. 2Admin Note: 3 shots, exposure at [employer] Medications acetaminophen 325 mg oral tablet [...] 04/27/07 Active OA (osteoarthritis) of knee(Confirmed) Active *[id number] Care Partn er Gill Sharpe(Confirmed) Active Type 2 diabetes mellitus(Confirmed) Active 1aquatherapy @ [facility] 2fear and mistrust of medications 3distrust and fear of medications. wants to stick with natural treatments 4nasal mask [id number] delmi'd. Severe sleep apnea. 5did not tolerate CPAP. repeat titration pendg. Social History Social History Type Response Smoking Status Never smoker entered on: 04/09/14 Sex
--- OUTSIDE RECORDS SUMMARY | 2022-11-26 21:43 | XMS_ITS | Continuity of Care Document ---
Author Name Unknown Organization [facility] Address [address] [place] [address]- Care Team Providers Care Edger Machine Helper Name Role Phone Lisha Lopez MD Primary Care Physician Encounter [facility] [place] Date(s): 04/28/21 - 05/28/[address] [address]- Allergies, Adverse Reactions, Alerts Substance Reaction Severity Status morphine Active Contrast Dye Active Immunizations Given and Recorded Vaccine Date Status Refusal Reason diphtheria/tetanus/pertussis, acel(DTaP) 1 12/11/06 Given Meningococcal Polysaccharide Vaccine 2 03/24/97 Gi jamie Not Given Vaccine Date Status Refusal Reason pneumococcal 13-valent vaccine 07/11/16 Not Given Patient Refuses 1Admin Note: vis given. 2Admin Note: 3 shots, exposure at [employer] Medications acetaminophen-codeine 300 mg-30 mg oral tablet [...] 0 Refills, Maintenance, 04/17/21 16:38:00 EST, Gel, [facility] #[id number], Partial fill upon patient request if the [...] 04/27/07 Active OA (osteoarthritis) of knee(Confirmed) Active *[id number] Care Partn er Gill Sharpe(Confirmed) Active Type 2 diabetes mellitus(Confirmed) Active 1aquatherapy @ [facility] 2fear and mistrust of medications 3distrust and fear of medications. wants to stick with natural treatments 4nasal mask [id number] delmi'd. Severe sleep apnea. 5did not tolerate CPAP. repeat titration pendg. Social History Social History Type Response Smoking Status Never smoker entered on: 04/09/14 Sex
--- OUTSIDE RECORDS SUMMARY | 2022-11-26 21:43 | XMS_ITS | Continuity of Care Document ---
Author Name Unknown Organization [facility] Address [address] [place] [address]- Care Team Providers Care Composition Floor Layer Name Role Phone Lisha Lopez MD Primary Care Physician En[place] [facility] [place] Date(s): 09/04/21 - 12/03/21 [facility] [address] [place] [address]- Attending Physician: Chandrika Valencia MD Allergies, Adverse [...] given. 2Admin Note: 3 shots, exposure at [email or web address] Medications albendazole 200 mg oral tablet 2 tablet = 400 mg, By Mouth, Once, with meals; may repeat in 2 weeks, # 4 tablet, 0 Refills, Soft Stop, 09/09/21 11:45:00 EDT, Tablet, [facility] #[id number], Partial fill upon patient request if the [...] 0 Refills, Maintenance, 08/14/21 10:31:00 EDT, Gel, [facility], Partial fill upon patient [...] 04/27/07 Active OA (osteoarthritis) of knee(Confirmed) Active *[id number] Care Partn er Gill Sharpe(Confirmed) Active Type 2 diabetes mellitus(Confirmed) Active 1aquatherapy @ [facility] 2fear and mistrust of medications 3distrust and fear of medications. wants to stick with natural treatments 4nasal mask [id number] delmi'd. Severe sleep apnea. 5did not tolerate CPAP. repeat titration pendg. Social History Social History Type Response Smoking Status Never smoker entered on: 04/09/14 Sex Care Team Personnel Name: Lisha Lopez MD Address: [address] [place] [address]-
--- OUTSIDE RECORDS SUMMARY | 2022-11-26 21:43 | XMS_ITS | Continuity of Care Document ---
Author Name Unknown Organization [facility] Address [address] [place] [address]- Care Team Providers Care Trial Attorney Name Role Phone Lisha Lopez MD Primary Care Physician Encounter [facility] Date(s): 07/09/21 - 08/08/[address] [address]- Allergies, Adverse Reactions, Alerts Substance Reaction Severity Status Contrast Dye Active morphine Active Immunizations Given and Recorded Vaccine Date Status Refusal Reason diphtheria/tetanus/pertussis, acel(DTaP) 1 12/11/06 Given Meningococcal Polysaccharide Vaccine 2 03/24/97 Gi jamie Not Given Vaccine Date Status Refusal Reason pneumococcal 13-valent vaccine 07/11/16 Not Given Patient Refuses 1Admin Note: vis given. 2Admin Note: 3 shots, exposure at [employer] Medications acetaminophen-codeine 300 mg-30 mg oral tablet [...] 0 Refills, Maintenance, 04/17/21 16:38:00 EST, Gel, [facility] #[id number], Partial fill upon patient request if the [...] EDT, Supply Start Date: 07/15/21 Status: Ordered Oxygen Supplies See Instructions, # 1 pack/packet, Refills 11, Tot. Refills 11, Maintenance, Nocturnal O2 at 2L/m; dx SHAYY severe, unable to tolerate CPAP, 07/24/21 14:14:00 EDT, Supply Start Date: 07/24/21 Status: Ordered Vitamin C 500 mg oral [...] 04/27/07 Active OA (osteoarthritis) of knee(Confirmed) Active *[id number] Care Partn er Gill Sharpe(Confirmed) Active Type 2 diabetes mellitus(Confirmed) Active 1aquatherapy @ [facility] 2fear and mistrust of medications 3distrust and fear of medications. wants to stick with natural treatments 4nasal mask [id number] delmi'd. Severe sleep apnea. 5did not tolerate CPAP. repeat titration pendg. Social History Social History Type Response Smoking Status Never smoker entered on: 04/09/14 Sex
--- OUTSIDE RECORDS SUMMARY | 2022-11-26 21:43 | XMS_ITS | Continuity of Care Document ---
Author Name Unknown Organization [facility] Address [address] [place] [address]- Care Team Providers Care Bundle Tier Name Role Phone Jessica STOCK, Lisha Primary Care Physician Encounter [facility] [place] Date(s): 06/19/19 - 06/29/19 [facility] [address] [place] [address] [facility] Attending Physician: Holden Rosario Admitting Physician: [...] given. 2Admin Note: 3 shots, exposure at [employer] Medications Aquatherapy Aquatherapy, See Instructions, # 3 [...] 4 Refills, Maintenance, 03/26/19 17:07:00 EST, Gel, [facility][id number], 160, cm, 03/26/19 16:28:00 EST, Height, 75, kg, 03/17/19... Start Date: 03/26/19 Status: Ordered erythromycin 0.5% ophthalmic ointment 0.5 inches, Eye, Right, 4 times a day, for 5 days, # 3.5 Gm, 1 Refills, Acute 07/07/19 13:41:00 EDT, 06/27/19 13:41:00 EDT, Ophth Ointment, [facility] #[id number], 0.5 inches Eye, Right 4 times a day,x5 days, 160, cm, 06/27/19 12:15:00 EDT, Ada... Start Date: 06/27/19 Stop Date: 07/07/19 Status: Ordered niacin 100 mg oral tablet 1 tablet = 100 mg, By Mouth, 2 times a day, for 90 days, with meals, # 180 tablet, 3 Refills, Hard Stop 10/07/20 11:46:00 EDT, 10/13/19 11:46:00 EDT, [facility][id number], 160, cm, 04/20/19 9:45:00 EST, Height, 75, [...] 04/27/07 Active OA (osteoarthritis) of knee(Confirmed) Active *[id number]-[facility] Partn rita-Amelia Mueller(Confirmed) Active 1recurrent sx w Persantine MIBI, cardiac cath w/o CAD- Dr Garcia 2003 2aquatherapy @ [facility] 3Multiple hypodensities within the head of the right 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 had phys therapy but worse 7arms/legs 8distrust and fear of medications. wants to stick with natural treatments 9nasal mask [id number] delmi'd. Severe sleep apnea. 10did not tolerate CPAP. repeat titration pendg. Social History Social History Type Response Smoking Status Never smoker entered on: 04/09/14 Sex
--- OUTSIDE RECORDS SUMMARY | 2022-11-26 21:43 | XMS_ITS | Continuity of Care Document ---
Author Name Unknown Organization [facility] Address [address] [place] [address]- Care Team Providers Care Officer Lieutenant Name Role Phone Lisha Lopez MD Primary Care Physician Encounter [facility] [place] Date(s): 04/16/21 - 05/16/[address] [address]- Allergies, Adverse Reactions, Alerts Substance Reaction Severity Status morphine Active Contrast Dye Active Immunizations Given and Recorded Vaccine Date Status Refusal Reason diphtheria/tetanus/pertussis, acel(DTaP) 1 12/11/06 Given Meningococcal Polysaccharide Vaccine 2 03/24/97 Gi jamie Not Given Vaccine Date Status Refusal Reason pneumococcal 13-valent vaccine 07/11/16 Not Given Patient Refuses 1Admin Note: vis given. 2Admin Note: 3 shots, exposure at [employer] Medications acetaminophen-codeine 300 mg-30 mg oral tablet [...] 0 Refills, Maintenance, 04/17/21 16:38:00 EST, Gel, [facility] #[id number], Partial fill upon patient request if the [...] 04/27/07 Active OA (osteoarthritis) of knee(Confirmed) Active *[id number] Care Partn er Gill Sharpe(Confirmed) Active Type 2 diabetes mellitus(Confirmed) Active 1aquatherapy @ [facility] 2fear and mistrust of medications 3distrust and fear of medications. wants to stick with natural treatments 4nasal mask [id number] delmi'd. Severe sleep apnea. 5did not tolerate CPAP. repeat titration pendg. Social History Social History Type Response Smoking Status Never smoker entered on: 04/09/14 Sex
--- OUTSIDE RECORDS SUMMARY | 2022-11-26 21:43 | XMS_ITS | Continuity of Care Document ---
Author Name Unknown Organization [facility] Address [address] [place] [address]- Care Team Providers Care User Experience Developer Name Role Phone Lisha Lopez MD Primary Care Physician Encounter [facility] [place] Date(s): 09/02/20 - 10/02/[address] [address]- Allergies, Adverse Reactions, Alerts Substance Reaction Severity Status morphine Active Contrast Dye Active Immunizations Given and Recorded Vaccine Date Status Refusal Reason diphtheria/tetanus/pertussis, acel(DTaP) 1 12/11/06 Given Meningococcal Polysaccharide Vaccine 2 03/24/97 Gi jamie Not Given Vaccine Date Status Refusal Reason pneumococcal 13-valent vaccine 07/11/16 Not Given Patient Refuses 1Admin Note: vis given. 2Admin Note: 3 shots, exposure at [employer] Medications acetaminophen 325 mg oral tablet 650 [...] 04/27/07 Active OA (osteoarthritis) of knee(Confirmed) Active *[id number] Care Partn er Gill Sharpe(Confirmed) Active Type 2 diabetes mellitus(Confirmed) Active 1aquatherapy @ [facility] 2fear and mistrust of medications 3distrust and fear of medications. wants to stick with natural treatments 4nasal mask [id number] delmi'd. Severe sleep apnea. 5did not tolerate CPAP. repeat titration pendg. Social History Social History Type Response Smoking Status Never smoker entered on: 04/09/14 Sex
--- OUTSIDE RECORDS SUMMARY | 2022-11-26 21:43 | XMS_ITS | Continuity of Care Document ---
Author Name Unknown Organization [facility] Address [address] [place] [address]- Care Team Providers Care Transition Advisor Name Role Phone Lisha Lopez MD Primary Care Physician [place] [facility] [place] 03/18/22 - 04/17/[address] [address]- Allergies, Adverse Reactions, Alerts Substance Reaction Severity [...] 0 Refills, Maintenance, 08/14/21 10:31:00 EDT, Gel, [facility], Partial fill upon patient request if the prescription is for a schedule II opioid drug., 160, cm, 05... Start Date: 08/14/21 Status: Ordered diclofenac 1% topical gel 1 application, Topically, 4 times a day, 2 g per dose, 4 x a day. not to exceed 8 grams/day/single joint of upper extremities, # 100 Gm, 0 Refills, Maintenance, 01/07/22 15:36:00 EDT, Gel, [facility] #[id number], Partial fill upon patient request... Start Date: 01/07/22 Stop Date: 01/14/22 Status: Ordered diclofenac sodium 75 mg oral delayed release tablet 1 tablet = 75 mg, By Mouth, 2 times a day, # 28 tablet, 0 Refills, Maintenance, 01/11/22 9:43:00 EDT, EC Tablet, [facility] #[id number], Partial fill upon patient request if the [...] Active OA (osteoarthritis) of knee Confirmed Active *[id number] Business Planning Director Gill Sharpe Confirmed Active Type 2 diabetes mellitus Confirmed Active 1aquatherapy @ [facility] 2fear and mistrust of medications 3distrust and fear of medications. wants to stick with natural treatments 4nasal mask [id number] delmi'd. Severe sleep apnea. 5did not tolerate CPAP. repeat titration pendg. Social History Social History Type Response Smoking Status Never smoker entered on: 04/09/14 Sex Patient Care team information Care Team Personnel Name: Lara Kern RN Position: S RN Member Role: Primary Care Nurse Name: Lisha Lopez MD Position: S Primary Care Physician Member Role: PCP Address: Address: [address] [place] [address]- Name: Marbella Costa RN Position: S RN Member Role: Primary Care Nurse Name: Alisia Rojo RN Position: S RN Member Role: Primary Care Nurse Name: Monica Peña RN Position: S RN Member Role: Primary Care Nurse Name: Liana Woods RN Position: S RN Member Role: Primary Care Nurse Name: Kiersten Thomas RN Position: S RN Member Role: Primary Care Nurse Care Team Related Persons Name: SLOAN HUERTAS Address: [place] [address]
--- OUTSIDE RECORDS SUMMARY | 2022-11-26 21:43 | XMS_ITS | Continuity of Care Document ---
Author Name Unknown Organization [facility] ter Address [address] [place] [address]- Care Team Providers Care Investigator Fraud Name Role Phone Lisha Lopez MD Primary [facility] Phys[id number] Date[facility]16[facility] - 03/04/[address] [address]- Attending Physician: Carlitos Dhillon MD Admitting Physician: [...] 0 Refills, Maintenance, 08/14/21 10:31:00 EDT, Gel, [facility], Partial fill upon patient request if the prescription is for a schedule II opioid drug., 160, cm, 05/... Start Date: 08/14/21 Status: Ordered diclofenac 1% topical gel 1 application, Topically, 4 times a day, 2 g per dose, 4 x a day. not to exceed 8 grams/day/single joint of upper extremities, # 100 Gm, 0 Refills, Maintenance, 01/07/22 15:36:00 EDT, Gel, [facility] #[id number], Partial fill upon patient request... Start Date: 01/07/22 Stop Date: 01/14/22 Status: Ordered diclofenac sodium 75 mg oral delayed release tablet 1 tablet = 75 mg, By Mouth, 2 times a day, # 28 tablet, 0 Refills, Maintenance, 01/11/22 9:43:00 EDT, EC Tablet, [facility] #[id number], Partial fill upon patient request if the [...] Active OA (osteoarthritis) of knee Confirmed Active *[id number] Contact Center Team Lead Gill Sharpe Confirmed Active Type 2 diabetes mellitus Confirmed Active 1aquatherapy @ [facility] 2fear and mistrust of medications 3distrust and fear of medications. wants to stick with natural treatments 4nasal mask [id number] delmi'd. Severe sleep apnea. 5did not tolerate CPAP. repeat titration pendg. Social History Social History Type Response Smoking Status Never smoker entered on: 04/09/14 Sex Patient Care team information Care Team Personnel Name: Concha VALVERDE, Lara Durham Position: [facility] RN Member Role: Primary Care Nurse Name: Lisha Lopez MD Position: [facility] Primary Care Physician Member Role: PCP Address: Address: [address] [place] [address]- Name: Marbella Costa RN Position: S RN Member Role: Primary Care Nurse Name: Alisia Rojo RN Position: [facility] ED RN W/OE and Tasks Member Role: Primary Care Nurse Name: Monica Peña RN Position: S RN Member Role: Primary Care Nurse Name: Kiersten Thomas RN Position: S RN Member Role: Primary Care Nurse Care Team Related Persons Name: SLOAN HUERTAS Address: [place] [address]
--- OUTSIDE RECORDS SUMMARY | 2022-11-26 21:43 | XMS_ITS | Continuity of Care Document ---
Author Name Unknown Organization [facility] Address [address] [place] [address]- Care Team Providers Care Metrology Engineer Name Role Phone Lisha Lopez MD Primary Care Physician Encounter [facility] [place] [facility] R [id number] Date(s): 10/11/22 - 11/10/[address] [address]- Attending Physician: Holden Rosario Admitting Physician: Holden [...] skin and allergic reaction to other brands, 08/04/22 13:04:00 EDT, Supply Start Date: 08/04/22 Status: Ordered B 100 Complex 1 tablet, By Mouth, Daily, Maintenance, 08/12/21 11:58:00 EDT, Partial fill upon patient request ifthe prescription is for a schedule II opioid drug. Start Date: 08/12/21 Status: Ordered Bedpads See Instructions, # 6 each, Refills 11, Tot. Refills 11, Maintenance, for daily use; dx=incontinence, 08/04/22 13:06:00 EDT, Supply Start Date: 08/04/22 Status: Ordered Blood pressure cuff Blood pressure [...] 0 Refills, Maintenance, 08/14/21 10:31:00 EDT, Gel, [facility] 3, Partial fill upon patient [...] 0 Refills, Maintenance, 01/07/22 15:36:00 EDT, Gel, [facility] #[id number], Partial fill upon patient request... Start Date: 01/07/22 Stop Date: 01/14/22 Status: Ordered diclofenac sodium 75 mg oral delayed release tablet 1 tablet = 75 mg, By Mouth, 2 times a day, # 28 tablet, 0 Refills, Maintenance, 01/11/22 9:43:00 EDT, EC Tablet, [facility] #[id number], Partial fill upon patient request if the prescription is for a schedule II opioid drug., 160, cm, 01/11/22 9:... Start Date: 01/11/22 Stop Date: 01/25/22 Status: Ordered disposable wipes disposable wipes, See Instructions, # 3 each, Refills 4, Tot. Refills 4, Maintenance, dx= incontinence, 08/04/22 13:07:00 EDT, Supply Start Date: 08/04/22 Status: Ordered Gloves See Instructions, # 260 each, Refills 11, Tot. Refills 11, Maintenance, for daily use 8/day, 08/04/22 13:06:00 EDT, dx= incontinence, Supply Start Date: 08/04/22 Status: Ordered Home Blood Pressure Monitor See [...] Stop 06/25/23 12:46:00 EDT, 06/30/22 12:46:00 EDT, [facility] #[id number], 160, cm, 06/30/22 11:12:00 EDT, Height, 73, kg, 01/10/22 17:54:00 EDT, [facility].. Start Date: 06/30/22 Stop Date: 06/25/23 Status: [...] Active OA (osteoarthritis) of knee Confirmed Active [id number] Toll Line Repairer Julián Uribe Confirmed Active Type 2 diabetes mellitus Confirmed Active 1aquatherapy @ [facility] 2fear and mistrust of medications 3distrust and fear of medications. wants to stick with natural treatments 4nasal mask [id number] delmi'd. Severe sleep apnea. 5did not tolerate CPAP. repeat titration pendg. Social History Social History Type Response Smoking Status Never smoker entered on: 04/09/14 Sex Laboratory * Event Display: Non Lab Results Authored Date: Radiology * Event Display: MRI Ankle/Foot, Non- Authored Date: * Event Display: Ultrasound Neck, [...] Personnel Name: Concha VALVERDE, Lara Durham Position: S RN Member Role: Primary Care Nurse Name: Lisha Lopez MD Position: S Physician - Primary Care Member Role: PCP Address: Address: [address] [place] [address]- Name: Marbella Costa RN Position: S RN Member Role: Primary Care Nurse Name: Alisia Rojo RN Position: [facility] RN Member Role: Primary Care Nurse Name: Monica Peña RN Position: [facility] RN Member Role: Primary Care Nurse Name: Liana Woods RN Position: [facility] ED RN W/OE and Tasks Member Role: Primary Care Nurse Name: Kiersten Thomas RN Position: [facility] RN Member Role: Primary Care Nurse Name: Alisia Plunkett Position: [facility] Outreach Member Role: Lifetime Consulting Physician Care Team Related Persons Name: SLOAN HUERTAS Address: [place] [address]
--- OUTSIDE RECORDS SUMMARY | 2022-11-26 21:43 | XMS_ITS | Continuity of Care Document ---
Author Name Unknown Organization [facility] Address [address] [place] [address]- Care Team Providers Care Senior Windows Systems Engineer Name Role Phone Lisha Lopez MD Primary Care Physician Encounter [facility] Date(s): 04/21/22 - 06/18/[address] [address]- Attending Physician: Lisha Lopez MD Admitting Physician: [...] given. 2Admin Note: 3 shots, exposure at [employer] Medications Always Incontinence briefs Always Incontinence briefs, [...] cm, ... Start Date: 08/14/21 Status: Ordered diclofenac 1% topical gel 1 application, Topically, 4 times a day, 2 g per dose, 4 x a day. not to exceed 8 grams/day/single joint of upper extremities, # 100 Gm, 0 Refills, Maintenance, 01/07/22 15:36:00 EDT, Gel, [facility] #[id number], Partial fill upon patient request... 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 wants to stick with natural treatments 4nasal mask [id number] delmi'd. Severe sleep apnea. 5did not tolerate CPAP. repeat titration pendg. Social History Social History Type Response Smoking Status Never smoker entered on: 04/09/14 Sex Patient Care team information Care Team Personnel Name: Concha VALVERDE, Lara Duhram Position: [facility] RN Member Role: Primary Care Nurse Name: Lisha Lopez MD Position: [facility] Primary Care Physician Member Role: PCP Address: Address: [address] [place] [address]- Name: Marbella Costa RN Position: [facility] RN Member Role: Primary Care Nurse Name: Alisia Rojo RN Position: [facility] RN Member Role: Primary Care Nurse Name: Monica Peña RN Position: S RN Member Role: Primary Care Nurse Name: Liana Woods RN Position: [facility] RN Member Role: Primary Care Nurse Name: Kiersten Thomas RN Position: [facility] RN Member Role: Primary Care Nurse Care Team Related Persons Name: SLOAN HUERTAS Address: [place] [address]
--- OUTSIDE RECORDS SUMMARY | 2022-11-26 21:43 | XMS_ITS | Continuity of Care Document ---
Author Name Unknown Organization [facility] Address [address] [place] [address]- Care Team Providers Care Resident Surgeon Name Role Phone Lisha Lopez MD Primary Care Physician En[place] [facility] Date(s): 10/27/20 - 11/26/20 [facility] [address] [place] [address]- [place] Allergies, Adverse Reactions, Alerts Substance Reaction Severity Status morphine Active Contrast Dye Active Immunizations Given and Recorded Vaccine Date Status Refusal Reason diphtheria/tetanus/pertussis, acel(DTaP) 1 12/11/06 Given Meningococcal Polysaccharide Vaccine 2 03/24/97 Gi jamie Not Given Vaccine Date Status Refusal Reason pneumococcal 13-valent vaccine 07/11/16 Not Given Patient Refuses 1Admin Note: vis given. 2Admin Note: 3 shots, exposure at [employer] Medications acetaminophen 325 mg oral tablet 650 [...] 04/27/07 Active OA (osteoarthritis) of knee(Confirmed) Active *[id number] Care Partn er Gill Sharpe(Confirmed) Active Type 2 diabetes mellitus(Confirmed) Active 1aquatherapy @ [facility] 2fear and mistrust of medications 3distrust and fear of medications. wants to stick with natural treatments 4nasal mask [id number] delmi'd. Severe sleep apnea. 5did not tolerate CPAP. repeat titration pendg. Social History Social History Type Response Smoking Status Never smoker entered on: 04/09/14 Sex
--- OUTSIDE RECORDS SUMMARY | 2022-11-26 21:43 | XMS_ITS | Continuity of Care Document ---
Author Name Unknown Organization [facility] Address [address] [place] [address]- Care Team Providers Care Inspector Wire Products Name Role Phone Lisha Lopez MD Primary Care Physician Encounter [facility] [place] Date(s): 08/14/19 - 09/13/19 [facility] [address] [place] [address]- [facility] Attending Physician: Holden Rosario Admitting [...] given. 2Admin Note: 3 shots, exposure at [employer] Medications Aquatherapy Aquatherapy, See Instructions, # 3 [...] 03/26/19 17:07:00 EST, Gel, [facility] #[id number], 160, cm, 03/26/19 16:28:00 EST, Height, 75, kg, 03/17/19... Start Date: 03/26/19 Status: Ordered niacin 100 mg oral tablet 1 tablet = 100 mg, By Mouth, 2 times a day, for 90 days, with meals, # 180 tablet, 3 Refills, Hard Stop 10/07/20 11:46:00 EDT, 10/13/19 11:46:00 EDT, [facility] #[id number], 160, cm, 04/20/19 9:45:00 EST, Height, 75, [...] 04/27/07 Active OA (osteoarthritis) of knee(Confirmed) Active *[id number]-[facility] Partn rita-Amelia Lechugado(Confirmed) Active 1recurrent sx w Persantine MIBI, cardiac cath w/o CAD- Dr Garcia 2003 2aquatherapy @ [facility] 3Multiple hypodensities within the head of the right 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 had phys therapy but worse 7arms/legs 8distrust and fear of medications. wants to stick with natural treatments 9nasal mask [id number] delmi'd. Severe sleep apnea. 10did not tolerate CPAP. repeat titration pendg. Social History Social History Type Response Smoking Status Never smoker entered on: 04/09/14 Sex
--- OUTSIDE RECORDS SUMMARY | 2022-11-26 21:43 | XMS_ITS | Continuity of Care Document ---
Author Name Unknown Organization [facility] ter Address [address] [place] [address]- Care Team Providers Care Video Camera Operator Name Role Phone Jessica STOCK, Lisha Primary Care Physician Encounter [facility] Date(s): 03/17/19 - 03/17/[address] [address] [place] Attending Physician: Isa STOCK, Eliazar Rajan Allergies, Adverse Reactions, Alerts Substance Reaction Severity Status morphine Active Contrast Dye Active Immunizations Given and Recorded Vaccine Date Status Refusal Reason diphtheria/tetanus/pertussis, acel(DTaP) 1 12/11/06 Given Meningococcal Polysaccharide Vaccine 2 03/24/97 Gi jamie Not Given Vaccine Date Status Refusal Reason pneumococcal 13-valent vaccine 07/11/16 Not Given Patient Refuses 1Admin Note: vis given. 2Admin Note: 3 shots, exposure at [employer] Medications Aquatherapy Aquatherapy, See Instructions, # 3 box, Refills 11, Tot. Refills 11, Maintenance, aquatherapy bid for 6 weeks; dx=OA knees, 10/26/18 20:22:37 EDT, Compound Start Date: 10/26/18 Status: Ordered Bactrim DS 800 mg-160 mg oral tablet 1 tablet, By Mouth, 2 times a day, for 10 days, # 20 tablet, 0 Refills, Acute 03/27/19 15:01:12 EST, 03/17/19 15:01:12 EST, Tablet, [facility][id number], 1 tablet By Mouth 2 times a [...] 15:08:05 EST, 03/17/19 15:08:05 EST, ER Tablet, [facility] #[id number], 160, cm, 03/17/19 14:27:21 EST, Height, 75, kg, 03/04... Start Date: 03/17/19 Stop Date: 03/24/19 Status: Ordered Problem List Condition Effective Dates [...] 04/27/07 Active OA (osteoarthritis) of knee(Confirmed) Active *[id number]-[facility] Partn rita-Ameliabrennen Yiarado(Confirmed) Active 1recurrent sx w Persantine MIBI, cardiac cath w/o CAD- Dr Garcia 2003 2aquatherapy @ [facility] 3Multiple hypodensities within the head of the right 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 had phys therapy but worse 7arms/legs 8distrust and fear of medications. wants to stick with natural treatments 9nasal mask [id number] delmi'd. Severe sleep apnea. 10did not tolerate CPAP. repeat titration pendg. Social History Social History Type Response Smoking Status Never smoker entered on: 04/09/14 Sex
--- OUTSIDE RECORDS SUMMARY | 2022-11-26 21:43 | XMS_ITS | Continuity of Care Document ---
Author Name Unknown Organization [facility] Address [address] [place] [address]- Care Team Providers Care Protection Mgr Name Role Phone Lisha Lopez MD Primary Care Physician Encounter [facility] Date(s): 08/07/21 - 09/11/[address] [address]- Attending Physician: Ricardo Stack OD Admitting Physician: [...] given. 2Admin Note: 3 shots, exposure at [employer] Medications albendazole 200 mg oral tablet 2 tablet = 400 mg, By Mouth, Once, with meals; may repeat in 2 weeks, # 4 tablet, 0 Refills, Soft Stop, 09/09/21 11:45:00 EDT, Tablet, [facility] #[id number], Partial fill upon patient request if the [...] 0 Refills, Maintenance, 08/14/21 10:31:00 EDT, Gel, [facility] 3, Partial fill upon patient [...] 04/27/07 Active OA (osteoarthritis) of knee(Confirmed) Active *[id number] Care Partn rita Sharpe(Confirmed) Active Type 2 diabetes mellitus(Confirmed) Active 1aquatherapy @ [facility] 2fear and mistrust of medications 3distrust and fear of medications. wants to stick with natural treatments 4nasal mask [id number] delmi'd. Severe sleep apnea. 5did not tolerate CPAP. repeat titration pendg. Social History Social History Type Response Smoking Status Never smoker entered on: 04/09/14 Sex
--- OUTSIDE RECORDS SUMMARY | 2022-11-26 21:43 | XMS_ITS | Continuity of Care Document ---
Author Name Unknown Organization [facility] Address [address] [place] [address]- Care Team Providers Care Environmental Maintenance Worker Name Role Phone Lisha Lopez MD Primary Care Physician Encounter [facility] [place] Date(s): 08/06/20 - 09/05/[address] [address]- Allergies, Adverse Reactions, Alerts Substance Reaction Severity Status morphine Active Contrast Dye Active Immunizations Given and Recorded Vaccine Date Status Refusal Reason diphtheria/tetanus/pertussis, acel(DTaP) 1 12/11/06 Given Meningococcal Polysaccharide Vaccine 2 03/24/97 Gi jamie Not Given Vaccine Date Status Refusal Reason pneumococcal 13-valent vaccine 07/11/16 Not Given Patient Refuses 1Admin Note: vis given. 2Admin Note: 3 shots, exposure at [employer] Medications acetaminophen 325 mg oral tablet 650 [...] 04/27/07 Active OA (osteoarthritis) of knee(Confirmed) Active *[id number] Care Partn rita Garland Annemarie(Confirmed) Active Type 2 diabetes mellitus(Confirmed) Active 1aquatherapy @ [facility] 2fear and mistrust of medications 3distrust and fear of medications. wants to stick with natural treatments 4nasal mask [id number] delmi'd. Severe sleep apnea. 5did not tolerate CPAP. repeat titration pendg. Social History Social History Type Response Smoking Status Never smoker entered on: 04/09/14 Sex
--- OUTSIDE RECORDS SUMMARY | 2022-11-26 21:43 | XMS_ITS | Continuity of Care Document ---
Author Name Unknown Organization [facility] Address [address] [place] [address]- Care Team Providers Care Drug Safety Scientist Name Role Phone Lisha Lopez MD Primary Care Physician [place] [facility] Date(s): 03/21/20 - 04/20/[address] [address]- Allergies, Adverse Reactions, Alerts Substance Reaction Severity Status morphine Active Contrast Dye Active Immunizations Given and Recorded Vaccine Date Status Refusal Reason diphtheria/tetanus/pertussis, acel(DTaP) 1 12/11/06 Given Meningococcal Polysaccharide Vaccine 2 03/24/97 Gi jamie Not Given Vaccine Date Status Refusal Reason pneumococcal 13-valent vaccine 07/11/16 Not Given Patient Refuses 1Admin Note: vis given. 2Admin Note: 3 shots, exposure at [employer] Medications Aquatherapy Aquatherapy, See Instructions, # 3 box, Refills 11, Tot. Refills 11, Maintenance, aquatherapy bid for 6 weeks; dx=OA knees, 10/26/18 20:22:37 EDT, Compound Start Date: 10/26/18 Status: Ordered aspirin 81 mg oral delayed release tablet 81 mg, By Mouth, Daily, # 30 tablet, Refills 0, Tot. Refills 0, Maintenance, 12/25/19 11:17:00 EDT,Route to Pharmacy Electronically, [facility], 160, cm, 06/27/19 12:15:00 EDT, Height,75, kg, 03/17/19 14:27:00 EST, Dry Weight Start Date: 12/25/19 Status: Ordered cetirizine 10 mg oral tablet 1 tablet = 10 mg, By Mouth, Daily, # 14 tablet, 0 Refills, Maintenance, 03/06/20 16:12:00 EST, [facility] #[id number], Partial fill upon patient request if the [...] 4 Refills, Maintenance, 03/05/20 9:46:00 EST, Gel, [facility] #[id number], 160, cm, 01/16/20 11:22:00 EDT, Height, 75, kg, 03/17/19 14... Start Date: 03/05/20 Status: Ordered niacin 100 mg oral tablet 1 tablet = 100 mg, By Mouth, 2 times a day, for 90 days, with meals, # 180 tablet, 3 Refills, Hard Stop 10/07/20 11:46:00 EDT, 10/13/19 11:46:00 EDT, [facility] #[id number], 160, cm, 04/20/19 9:45:00 EST, Height, 75, kg, 03/17/19 14:27:00 EST, . Start Date: 10/13/19 Stop Date: 10/07/20 Status: Ordered Travatan Z 0.004% ophthalmic solution 1 drops, Topically, Daily before dinner, # 2.5 mL, 1 Refills, Maintenance, 12/25/19 10:53:00 EDT, Solution, [facility], 1 drops Topically Daily before dinner, [...] knee(Confirmed) Active Pain in toe(Confirmed) 02/18/17 Active *[id number] Care Partn er Gill Sharpe(Confirmed) Active 1recurrent sx w Persantine MIBI, cardiac cath w/o CAD- Dr Garcia 2003 2aquatherapy @ [facility] 3Multiple hypodensities within the head of the right 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 had phys therapy but worse 7arms/legs 8distrust and fear of medications. wants to stick with natural treatments 9nasal mask [id number] delmi'd. Severe sleep apnea. 10did not tolerate CPAP. repeat titration pendg. Social History Social History Type Response Smoking Status Never smoker entered on: 04/09/14 Sex"
--- OUTSIDE RECORDS SUMMARY | 2022-11-26 21:43 | XMS_ITS | Continuity of Care Document ---
Author Name Unknown Organization [facility] Address [address] [place] [address]- Care Team Providers Care Broadcast Systems Engineer Name Role Phone Lisha Lopez MD Primary Care Physician Encounter [facility] [place] [place] Date(s): 02/12/21 - 02/19/21 [facility] [address] [place] [address]- Attending Physician: Satya Mckeon MD Referring Physician: Lisha Lopez MD Allergies, [...] given. 2Admin Note: 3 shots, exposure at [employer] Medications acetaminophen 325 mg oral tablet [...] 04/27/07 Active OA (osteoarthritis) of knee(Confirmed) Active *[id number] Care Partn er Gill Sharpe(Confirmed) Active Type 2 diabetes mellitus(Confirmed) Active 1aquatherapy @ [facility] 2fear and mistrust of medications 3distrust and fear of medications. wants to stick with natural treatments 4nasal mask [id number] delmi'd. Severe sleep apnea. 5did not tolerate CPAP. repeat titration pendg. Vital Signs Most recent to oldest [Reference Range]: 1 Height 160 cm (02/12/21 1:58 PM) Oxygen Saturation [94-100 %] 100 % (02/12/21 1:58 PM) Pulse Rate [55-90 bpm] 63 bpm (02/12/21 1:58 PM) Blood Pressure [90-138/55-84 mm Hg] 155/ 69mm Hg *H* (02/12/21 1:58 PM) Respiratory Rate [16-30 br/min] 20 br/mi n (02/12/21 1:58 PM) Temperature [96.8-100.4 DegF] 98.9 DegF (02/12/21 1:58 PM) Mode of Delivery (Oxygen) Room air (02/12/21 1:58 PM) Blood pressure sites Arm, left (02/12/21 1:58 PM) Temperature Route Temporal (02/12/21 1:58 PM) Social History Social History Type Response Smoking Status Never smoker entered on: 04/09/14 Sex
--- OUTSIDE RECORDS SUMMARY | 2022-11-26 21:43 | XMS_ITS | Continuity of Care Document ---
Author Name Unknown Organization [facility] Address [address] [place] [address]- Care Team Providers Care Wine Steward Name Role Phone Lisha Lopez MD Primary Care Physician [place] [facility] [place] Date(s): 08/12/21 - 09/11/[address] [address]- Allergies, Adverse Reactions, Alerts Substance Reaction Severity Status morphine Active Contrast Dye Active Immunizations Given and Recorded Vaccine Date Status Refusal Reason diphtheria/tetanus/pertussis, acel(DTaP) 1 12/11/06 Given Meningococcal Polysaccharide Vaccine 2 03/24/97 Gi jamie Not Given Vaccine Date Status Refusal Reason pneumococcal 13-valent vaccine 07/11/16 Not Given Patient Refuses 1Admin Note: vis given. 2Admin Note: 3 shots, exposure at [employer] Medications albendazole 200 mg oral tablet 2 tablet = 400 mg, By Mouth, Once, with meals; may repeat in 2 weeks, # 4 tablet, 0 Refills, Soft Stop, 09/09/21 11:45:00 EDT, Tablet, [facility] #[id number], Partial fill upon patient request if the [...] Refills, Maintenance, 08/14/21 10:31:00 EDT, Gel, [facility], Partial fill upon patient request if [...] 04/27/07 Active OA (osteoarthritis) of knee(Confirmed) Active *[id number] Care Partn er Gill Sharpe(Confirmed) Active Type 2 diabetes mellitus(Confirmed) Active 1aquatherapy @ [facility] 2fear and mistrust of medications 3distrust and fear of medications. wants to stick with natural treatments 4nasal mask [id number] delmi'd. Severe sleep apnea. 5did not tolerate CPAP. repeat titration pendg. Social History Social History Type Response Smoking Status Never smoker entered on: 04/09/14 Sex
--- OUTSIDE RECORDS SUMMARY | 2022-11-26 21:43 | XMS_ITS | Continuity of Care Document ---
Author Name Unknown Organization [facility] ion Address [address] [place] [address]- Care Team Providers Care Digital Assistant Name Role Phone Lisha Lopez MD Primary Care Physician [place] [facility] [place](s): 06/03/22 - 07/03/[address] [address] Attending Physician: Holden Rosario Admitting Physician: Holden [...] given. 2Admin Note: 3 shots, exposure at [employer] Medications Always Incontinence briefs Always Incontinence briefs, [...] 0 Refills, Maintenance, 08/14/21 10:31:00 EDT, Gel, [facility] 3, Partial fill upon patient request if the prescription is for a schedule II opioid drug., 160, cm, 05/... Start Date: 08/14/21 Status: Ordered diclofenac 1% topical gel 1 application, Topically, 4 times a day, 2 g per dose, 4 x a day. not to exceed 8 grams/day/single joint of upper extremities, # 100 Gm, 0 Refills, Maintenance, 01/07/22 15:36:00 EDT, Gel, [facility] #[id number], Partial fill upon patient request... Start Date: 01/07/22 Stop Date: 01/14/22 Status: Ordered diclofenac sodium 75 mg oral delayed release tablet 1 tablet = 75 mg, By Mouth, 2 times a day, # 28 tablet, 0 Refills, Maintenance, 01/11/22 9:43:00 EDT, EC Tablet, [facility] #[id number], Partial fill upon patient request if the [...] Stop 06/25/23 12:46:00 EDT, 06/30/22 12:46:00 EDT, [id number], 160, cm, 06/30/22 11:12:00 EDT, Height, 73, [...] Active OA (osteoarthritis) of knee Confirmed Active *[id number] Anthropology And Archeology Instructor Gill Sharpe Confirmed Active Type 2 diabetes mellitus Confirmed Active 1aquatherapy @ [facility] 2fear and mistrust of medications 3distrust and fear of medications. wants to stick with natural treatments 4nasal mask [id number] delmi'd. Severe sleep apnea. 5did not tolerate CPAP. repeat titration pendg. Social History Social History Type Response Smoking Status Never smoker entered on: 04/09/14 Sex Patient Care team information Care Team Personnel Name: Lara Kern RN Position: S RN Member Role: Primary Care Nurse Name: Lisha Lopez MD Position: [facility] Primary Care Physician Member Role: PCP Address: Address: [address] [place] [address]- Name: Marbella Costa RN Position: S RN [...] Persons Name: SLOAN HUERTAS Address: home [place]KNOWN [place] [facility] [place]ARC[place] [id number]
--- OUTSIDE RECORDS SUMMARY | 2022-11-26 21:43 | XMS_ITS | Continuity of Care Document ---
Author Name Unknown Organization [facility] ter Address [address] [place] [address]- Care Team Providers Care Cook Candy Name Role Phone Lsiha Lopez MD Primary Care Physician Encounter [facility] [place] Date(s): 10/17/20 - 11/26/[address] [address] Attending Physician: Chandrika Valencia MD Admitting Physician: [...] given. 2Admin Note: 3 shots, exposure at [employer] Medications acetaminophen 325 mg oral tablet 650 [...] 04/27/07 Active OA (osteoarthritis) of knee(Confirmed) Active *[id number] Care Partn er Gill Sharpe(Confirmed) Active Type 2 diabetes mellitus(Confirmed) Active 1aquatherapy @ [facility] 2fear and mistrust of medications 3distrust and fear of medications. wants to stick with natural treatments 4nasal mask [id number] delmi'd. Severe sleep apnea. 5did not tolerate CPAP. repeat titration pendg. Social History Social History Type Response Smoking Status Never smoker entered on: 04/09/14 Sex
--- OUTSIDE RECORDS SUMMARY | 2022-11-26 21:43 | XMS_ITS | Continuity of Care Document ---
Author Name Unknown Organization [facility] Address [address] [place] [address]- Care Team Providers Care Parker Name Role Phone Lisha Lopez MD Primary Care Physician [place] [facility] [place](s): 08/21/21 - 09/20/[address] [address]- Allergies, Adverse Reactions, Alerts Substance Reaction Severity Status morphine Active Contrast Dye Active Immunizations Given and Recorded Vaccine Date Status Refusal Reason diphtheria/tetanus/pertussis, acel(DTaP) 1 12/11/06 Given Meningococcal Polysaccharide Vaccine 2 03/24/97 Gi jamie Not Given Vaccine Date Status Refusal Reason pneumococcal 13-valent vaccine 07/11/16 Not Given Patient Refuses 1Admin Note: vis given. 2Admin Note: 3 shots, exposure at [employer] Medications albendazole 200 mg oral tablet 2 tablet = 400 mg, By Mouth, Once, with meals; may repeat in 2 weeks, # 4 tablet, 0 Refills, Soft Stop, 09/09/21 11:45:00 EDT, Tablet, [facility] #[id number], Partial fill upon patient request if the [...] 0 Refills, Maintenance, 08/14/21 10:31:00 EDT, Gel, [facility] 3, Partial fill upon patient request [...] 04/27/07 Active OA (osteoarthritis) of knee(Confirmed) Active *[id number] Care Partn er Gill Sharpe(Confirmed) Active Type 2 diabetes mellitus(Confirmed) Active 1aquatherapy @ [facility] 2fear and mistrust of medications 3distrust and fear of medications. wants to stick with natural treatments 4nasal mask [id number] delmi'd. Severe sleep apnea. 5did not tolerate CPAP. repeat titration pendg. Social History Social History Type Response Smoking Status Never smoker entered on: 04/09/14 Sex
--- OUTSIDE RECORDS SUMMARY | 2022-11-26 21:43 | XMS_ITS | Continuity of Care Document ---
Author Name Unknown Organization [facility] Address [address] [place] [address]- Care Team Providers Care Inspector Advanced Composite Name Role Phone Lisha Lopez MD Primary Care Physician [place] [facility] [place] Date(s): 06/24/20 - 07/24/[address] [address]- Allergies, Adverse Reactions, Alerts Substance Reaction Severity Status morphine Active Contrast Dye Active Immunizations Given and Recorded Vaccine Date Status Refusal Reason diphtheria/tetanus/pertussis, acel(DTaP) 1 12/11/06 Given Meningococcal Polysaccharide Vaccine 2 03/24/97 Gi jamie Not Given Vaccine Date Status Refusal Reason pneumococcal 13-valent vaccine 07/11/16 Not Given Patient Refuses 1Admin Note: vis given. 2Admin Note: 3 shots, exposure at [employer] Medications acetaminophen 325 mg oral tablet 650 [...] 04/27/07 Active OA (osteoarthritis) of knee(Confirmed) Active *[id number] Care Partn er Gill Sharpe(Confirmed) Active Type 2 diabetes mellitus(Confirmed) Active 1aquatherapy @ [facility] 2fear and mistrust of medications 3distrust and fear of medications. wants to stick with natural treatments 4nasal mask [id number] delmi'd. Severe sleep apnea. 5did not tolerate CPAP. repeat titration pendg. Social History Social History Type Response Smoking Status Never smoker entered on: 04/09/14 Sex
--- OUTSIDE RECORDS SUMMARY | 2022-11-26 21:43 | XMS_ITS | Continuity of Care Document ---
Author Name Unknown Organization [facility] Address [address] [place] [address]- Care Team Providers Care Resistance Welding Machine Operator Name Role Phone Lisha Lopez MD Primary Care Physician Encounter [facility] [place] Date(s): 01/11/22 - 02/10/22 [facility] [address] [place] [address]- Attending Physician: Holden Rosario Admitting Physician: Holden [...] given. 2Admin Note: 3 shots, exposure at [employer] Medications acetaminophen-codeine 300 mg-30 mg oral tablet [...] 0 Refills, Maintenance, 08/14/21 10:31:00 EDT, Gel, [facility], Partial fill upon patient [...] 0 Refills, Maintenance, 01/07/22 15:36:00 EDT, Gel, [facility] #[id number], Partial fill upon patient request... Start Date: 01/07/22 Stop Date: 01/14/22 Status: Ordered diclofenac sodium 75 mg oral delayed release tablet 1 tablet = 75 mg, By Mouth, 2 times a day, # 28 tablet, 0 Refills, Maintenance, 01/11/22 9:43:00 EDT, EC Tablet, [facility] #[id number], Partial fill upon patient request if the [...] Active OA (osteoarthritis) of knee Confirmed Active *[id number] Specimen Accessioner Gill Sharpe Confirmed Active Type 2 diabetes mellitus Confirmed Active 1aquatherapy @ [facility] 2fear and mistrust of medications 3distrust and fear of medications. wants to stick with natural treatments 4nasal mask [id number] delmi'd. Severe sleep apnea. 5did not tolerate CPAP. repeat titration pendg. Social History Social History Type Response Smoking Status Never smoker entered on: 04/09/14 Sex Patient Care team information Care Team Personnel Name: Concha VALVERDE, Lara Durham Position: S RN Member Role: Primary Care Nurse Name: Lisha Lopez MD Position: [facility] Primary Care Physician Member Role: PCP Address: Address: [address] [place] [address]- Name: Marbella Costa RN Position: [facility] RN Member Role: Primary Care Nurse Name: Alisia Rojo RN Position: [facility] RN Member Role: Primary Care Nurse Name: Monica Peña RN Position: [facility] RN Member Role: Primary Care Nurse Name: Kiersten Thomas RN Position: [facility] RN Member Role: Primary Care Nurse Care Team Related Persons Name: ALEKSANDARJADSLOAN Address: [place] [address]
--- OUTSIDE RECORDS SUMMARY | 2022-11-26 21:43 | XMS_ITS | Continuity of Care Document ---
Author Name Unknown Organization [facility] Address [address] [place] [address]- Care Team Providers Care Software Quality Assurance Engineer Name Role Phone Lisha Lopez MD Primary Care Physician Encounter [facility] [place] ACCT R [id number] Date(s): 03/10/19 - 05/18/[address] [address] [facility] Attending Physician: Lisha Lopez MD Admitting Physician: Lisha Lopez MD Referring Physician: Nicolle Batres NP Allergies, Adverse Reactions, Alerts Substance Reaction Severity Status morphine Active Contrast Dye Active Immunizations Given and Recorded Vaccine Date Status Refusal Reason diphtheria/tetanus/pertussis, acel(DTaP) 1 12/11/06 Given Meningococcal Polysaccharide Vaccine 2 03/24/97 Gi jamie Not Given Vaccine Date Status Refusal Reason pneumococcal 13-valent vaccine 07/11/16 Not Given Patient Refuses 1Admin Note: vis given. 2Admin Note: 3 shots, exposure at [employer] Medications Aquatherapy Aquatherapy, See Instructions, # 3 [...] 4 Refills, Maintenance, 03/26/19 17:07:00 EST, Gel, [facility][id number], 160, cm, 03/26/19 16:28:00 EST, Height, 75, kg, 03/17/19... Start Date: 03/26/19 Status: Ordered niacin 100 mg oral tablet 1 tablet = 100 mg, By Mouth, 2 times a day, for 90 days, with meals, # 180 tablet, 3 Refills, Hard Stop 10/07/20 11:46:00 EDT, 10/13/19 11:46:00 EDT, [facility] #[id number], 160, cm, 04/20/19 9:45:00 EST, Height, 75, [...] 04/27/07 Active OA (osteoarthritis) of knee(Confirmed) Active *[id number]-[facility] Partn rita-Amelia Mueller(Confirmed) Active 1recurrent sx w Persantine MIBI, cardiac cath w/o CAD- Dr Garcia 2003 2aquatherapy @ [facility] 3Multiple hypodensities within the head of the right 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 had phys therapy but worse 7arms/legs 8distrust and fear of medications. wants to stick with natural treatments 9nasal mask [id number] delmi'd. Severe sleep apnea. 10did not tolerate CPAP. repeat titration pendg. Social History Social History Type Response Smoking Status Never smoker entered on: 04/09/14 Sex
--- OUTSIDE RECORDS SUMMARY | 2022-11-26 21:43 | XMS_ITS | Continuity of Care Document ---
Author Name Unknown Organization [facility] ter Address [address] [place] [address]- Care Team Providers Care Factory Focus Technician Name Role Phone Lisha Lopez MD Primary Care Physician Encounter [facility] [place] Date(s): 06/09/20 - 07/22/[address] [address]- Attending Physician: Lisha Lopez MD Admitting Physician: [...] given. 2Admin Note: 3 shots, exposure at [employer] Medications acetaminophen 325 mg oral tablet [...] 04/27/07 Active OA (osteoarthritis) of knee(Confirmed) Active *[id number] Care Partn er Gill Sharpe(Confirmed) Active Type 2 diabetes mellitus(Confirmed) Active 1aquatherapy @ [facility] 2fear and mistrust of medications 3distrust and fear of medications. wants to stick with natural treatments 4nasal mask [id number] delmi'd. Severe sleep apnea. 5did not tolerate CPAP. repeat titration pendg. Social History Social History Type Response Smoking Status Never smoker entered on: 04/09/14 Sex
--- OUTSIDE RECORDS SUMMARY | 2022-11-26 21:43 | XMS_ITS | Continuity of Care Document ---
Author Name Unknown Organization [facility] Address [address] [place] [address]- Care Team Providers Care Learning Center Coordinator Name Role Phone Lisha Lopez MD Primary Care Physician Encounter [facility] [place] Date(s): 05/22/20 - 06/21/[address] [address]- Allergies, Adverse Reactions, Alerts Substance Reaction Severity Status morphine Active Contrast Dye Active Immunizations Given and Recorded Vaccine Date Status Refusal Reason diphtheria/tetanus/pertussis, acel(DTaP) 1 12/11/06 Given Meningococcal Polysaccharide Vaccine 2 03/24/97 Gi jamie Not Given Vaccine Date Status Refusal Reason pneumococcal 13-valent vaccine 07/11/16 Not Given Patient Refuses 1Admin Note: vis given. 2Admin Note: 3 shots, exposure at [employer] Medications acetaminophen 325 mg oral tablet 650 [...] Refills 11, Tot. Refills 11, Maintenance, Nocturnal O2; dx SHAYY severe, unable to tolerate CPAP, 06/18/20 11:54:00 EDT, Supply Start Date: 06/18/20 Status: Ordered Vitamin C 500 mg oral [...] 04/27/07 Active OA (osteoarthritis) of knee(Confirmed) Active *[id number] Care Partn er Gill Annemarie(Confirmed) Active Type 2 diabetes mellitus(Confirmed) Active 1aquatherapy @ [facility] 2fear and mistrust of medications 3distrust and fear of medications. wants to stick with natural treatments 4nasal mask [id number] delmi'd. Severe sleep apnea. 5did not tolerate CPAP. repeat titration pendg. Social History Social History Type Response Smoking Status Never smoker entered on: 04/09/14 Sex
--- OUTSIDE RECORDS SUMMARY | 2022-11-26 21:43 | XMS_ITS | Continuity of Care Document ---
Author Name Unknown Organization [facility] Address [address] [place] [address]- Care Team Providers Care Brilliandeer Lopper Name Role Phone Lisha Lopez MD Primary Care Physician Encounter [facility] [place] [id number] Date(s): 06/27/19 - 07/07/[address] [address] [facility] Attending Physician: Holden Rosario Admitting Physician: [...] given. 2Admin Note: 3 shots, exposure at [employer] Medications Aquatherapy Aquatherapy, See Instructions, # [...] 4 Refills, Maintenance, 03/26/19 17:07:00 EST, Gel, [facility] #[id number], 160, cm, 03/26/19 16:28:00 EST, Height, 75, kg, 03/17/19... Start Date: 03/26/19 Status: Ordered niacin 100 mg oral tablet 1 tablet = 100 mg, By Mouth, 2 times a day, for 90 days, with meals, # 180 tablet, 3 Refills, Hard Stop 10/07/20 11:46:00 EDT, 10/13/19 11:46:00 EDT, [facility] #[id number], 160, cm, 04/20/19 9:45:00 EST, Height, 75, [...] 04/27/07 Active OA (osteoarthritis) of knee(Confirmed) Active *[id number]-[facility] Partn rita-Amelia Mueller(Confirmed) Active 1recurrent sx w Persantine MIBI, cardiac cath w/o CAD- Dr Garcia 2003 2aquatherapy @ [facility] 3Multiple hypodensities within the head of the right 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 had phys therapy but worse 7arms/legs 8distrust and fear of medications. wants to stick with natural treatments 9nasal mask [id number] delmi'd. Severe sleep apnea. 10did not tolerate CPAP. repeat titration pendg. Social History Social History Type Response Smoking Status Never smoker entered on: 04/09/14 Sex
--- OUTSIDE RECORDS SUMMARY | 2022-11-26 21:43 | XMS_ITS | Continuity of Care Document ---
Author Name Unknown Organization [facility] Address [address] [place] [address]- Care Team Providers Care Biscuit Maker Name Role Phone Lisha Lopez MD Primary Care Physician Encounter [facility] [place] Date(s): 03/23/21 - 04/22/21 [facility] [address] [place] [address]- Allergies, Adverse Reactions, Alerts Substance Reaction Severity Status morphine Active Contrast Dye Active Immunizations Given and Recorded Vaccine Date Status Refusal Reason diphtheria/tetanus/pertussis, acel(DTaP) 1 12/11/06 Given Meningococcal Polysaccharide Vaccine 2 03/24/97 Gi jamie Not Given Vaccine Date Status Refusal Reason pneumococcal 13-valent vaccine 07/11/16 Not Given Patient Refuses 1Admin Note: vis given. 2Admin Note: 3 shots, exposure at [employer] Medications Centravites 50 Plus By Mouth, Daily, [...] 0 Refills, Maintenance, 04/17/21 16:38:00 EST, Gel, [facility] #[id number], Partial fill upon patient request if the [...] 04/27/07 Active OA (osteoarthritis) of knee(Confirmed) Active *[id number] Care Partn er Gill Sharpe(Confirmed) Active Type 2 diabetes mellitus(Confirmed) Active 1aquatherapy @ [facility] 2fear and mistrust of medications 3distrust and fear of medications. wants to stick with natural treatments 4nasal mask [id number] delmi'd. Severe sleep apnea. 5did not tolerate CPAP. repeat titration pendg. Social History Social History Type Response Smoking Status Never smoker entered on: 04/09/14 Sex
--- OUTSIDE RECORDS SUMMARY | 2022-11-26 21:43 | XMS_ITS | Continuity of Care Document ---
Author Name Unknown Organization [facility] Address [address] [place] [address]- Care Team Providers Care Mix Chemist Name Role Phone Lisha Lopez MD Primary Care Physician En[place] [facility] [place] Date(s): 12/26/20 - 01/25/[address] [address] Allergies, Adverse Reactions, Alerts Substance Reaction Severity Status morphine Active Contrast Dye Active Immunizations Given and Recorded Vaccine Date Status Refusal Reason diphtheria/tetanus/pertussis, acel(DTaP) 1 12/11/06 Given Meningococcal Polysaccharide Vaccine 2 03/24/97 Gi jamie Not Given Vaccine Date Status Refusal Reason pneumococcal 13-valent vaccine 07/11/16 Not Given Patient Refuses 1Admin Note: vis given. 2Admin Note: 3 shots, exposure at [employer] Medications acetaminophen 325 mg oral tablet 650 [...] 04/27/07 Active OA (osteoarthritis) of knee(Confirmed) Active *[id number] Care Partn er Gill Annemarie(Confirmed) Active Type 2 diabetes mellitus(Confirmed) Active 1aquatherapy @ [facility] 2fear and mistrust of medications 3distrust and fear of medications. wants to stick with natural treatments 4nasal mask [id number] delmi'd. Severe sleep apnea. 5did not tolerate CPAP. repeat titration pendg. Social History Social History Type Response Smoking Status Never smoker entered on: 04/09/14 Sex
--- OUTSIDE RECORDS SUMMARY | 2022-11-26 21:43 | XMS_ITS | Continuity of Care Document ---
Author Name Unknown Organization [facility] ter Address [address] [place] [address]- Care Team Providers Care Technology Integration Specialist Name Role Phone Lisha Lopez MD Primary Care Physician En[place] [facility] [place] ACCT R [id number] Date(s): 09/16/20 - 10/26/[address] [address] Attending Physician: Chandrika Valencia MD Admitting Physician: [...] 04/27/07 Active OA (osteoarthritis) of knee(Confirmed) Active *[id number] Care Partn er Gill Sharpe(Confirmed) Active Type 2 diabetes mellitus(Confirmed) Active 1aquatherapy @ [facility] 2fear and mistrust of medications 3distrust and fear of medications. wants to stick with natural treatments 4nasal mask [id number] delmi'd. Severe sleep apnea. 5did not tolerate CPAP. repeat titration pendg. Social History Social History Type Response Smoking Status Never smoker entered on: 04/09/14 Sex
--- OUTSIDE RECORDS SUMMARY | 2022-11-26 21:43 | XMS_ITS | Continuity of Care Document ---
Author Name Unknown Organization [facility] Address [address] [place] [address]- Care Team Providers Care Case Mgr Name Role Phone Lisha Lopez MD Primary Care Physician [place] [facility] [place] 03/12/21 - 04/11/21 [facility] [address] [place] [address]- Allergies, Adverse Reactions, Alerts Substance Reaction Severity Status morphine Active Contrast Dye Active Immunizations Given and Recorded Vaccine Date Status Refusal Reason diphtheria/tetanus/pertussis, acel(DTaP) 1 12/11/06 Given Meningococcal Polysaccharide Vaccine 2 03/24/97 Gi jamie Not Given Vaccine Date Status Refusal Reason pneumococcal 13-valent vaccine 07/11/16 Not Given Patient Refuses 1Admin Note: vis given. 2Admin Note: 3 shots, exposure at [employer] Medications Centravites 50 Plus By Mouth, Daily, [...] 04/27/07 Active OA (osteoarthritis) of knee(Confirmed) Active *[id number] Care Partn er Gill Annemarie(Confirmed) Active Type 2 diabetes mellitus(Confirmed) Active 1aquatherapy @ [facility] 2fear and mistrust of medications 3distrust and fear of medications. wants to stick with natural treatments 4nasal mask [id number] delmi'd. Severe sleep apnea. 5did not tolerate CPAP. repeat titration pendg. Social History Social History Type Response Smoking Status Never smoker entered on: 04/09/14 Sex
--- OUTSIDE RECORDS SUMMARY | 2022-11-26 21:43 | XMS_ITS | Continuity of Care Document ---
Author Name Unknown Organization [facility] Address [address] [place] [address]- Care Team Providers Care Hooking Machine Operator Name Role Phone Lisha Lopez MD Primary Care Physician Encounter [facility] [place] Date(s): 02/11/21 - 03/15/[address] [address]- Attending Physician: Not on Staff, Attending MD [...] given. 2Admin Note: 3 shots, exposure at [employer] Medications acetaminophen-codeine 300 mg-30 mg oral tablet 1, tablet, By Mouth, Every 6 hours, PRN, for 3 days, # 12 tablet, Refills 0, Tot. Refills 0, Acute,severe pain, 03/16/21 12:42:00 EST, 03/13/21 12:42:00 EST, Route to Pharmacy Electronically, [facility] #[id number], Partial fill upon patient req... Start Date: 03/13/21 Stop Date: 03/16/21 Status: Ordered Centravites 50 Plus By Mouth, [...] 04/27/07 Active OA (osteoarthritis) of knee(Confirmed) Active *[id number] Care Partn er Gill Sharpe(Confirmed) Active Type 2 diabetes mellitus(Confirmed) Active 1aquatherapy @ [facility] 2fear and mistrust of medications 3distrust and fear of medications. wants to stick with natural treatments 4nasal mask [id number] delmi'd. Severe sleep apnea. 5did not tolerate CPAP. repeat titration pendg. Social History Social History Type Response Smoking Status Never smoker entered on: 04/09/14 Sex
--- OUTSIDE RECORDS SUMMARY | 2022-11-26 21:44 | XMS_ITS | Continuity of Care Document ---
Author Name Unknown Organization [facility] Address [address] [address]- Care Team Providers Care Stripper Apprentice Name Role Phone Lisha Lopez MD Primary Care Physician Encounter [facility] [place] Date(s): 07/07/20 - 08/06/20 [facility] [address] [address]- Attending Physician: Holden Rosario Admitting Physician: AdmHolden wood Referring Physician: Admtr, Ar8 Allergies, Adverse Reactions, Alerts Substance Reaction Severity Status morphine Active Contrast Dye Active Immunizations Given and Recorded Vaccine Date Status Refusal Reason diphtheria/tetanus/pertussis, acel(DTaP) 1 12/11/06 Given Meningococcal Polysaccharide Vaccine 2 03/24/97 Gi jamie Not Given Vaccine Date Status Refusal Reason pneumococcal 13-valent vaccine 07/11/16 Not Given Patient Refuses 1Admin Note: vis given. 2Admin Note: 3 shots, exposure at [employer] Medications acetaminophen 325 mg oral tablet 650 [...] 04/27/07 Active OA (osteoarthritis) of knee(Confirmed) Active *[id number] Care Partn er Gill Sharpe(Confirmed) Active Type 2 diabetes mellitus(Confirmed) Active 1aquatherapy @ [facility] 2fear and mistrust of medications 3distrust and fear of medications. wants to stick with natural treatments 4nasal mask [id number] delmi'd. Severe sleep apnea. 5did not tolerate CPAP. repeat titration pendg. Social History Social History Type Response Smoking Status Never smoker entered on: 04/09/14 Sex
--- OUTSIDE RECORDS SUMMARY | 2022-11-26 21:44 | XMS_ITS | Continuity of Care Document ---
Author Name Unknown Organization [facility] Address [address] [place] [address]- Care Team Providers Care Director Nurses' Registry Name Role Phone Lisha Lopez MD Primary Care Physician [place] [facility] [place]/15[place]21 - 05/15/[address] [address]- Allergies, Adverse Reactions, Alerts Substance Reaction Severity Status morphine Active Contrast Dye Active Immunizations Given and Recorded Vaccine Date Status Refusal Reason diphtheria/tetanus/pertussis, acel(DTaP) 1 12/11/06 Given Meningococcal Polysaccharide Vaccine 2 03/24/97 Gi jamie Not Given Vaccine Date Status Refusal Reason pneumococcal 13-valent vaccine 07/11/16 Not Given Patient Refuses 1Admin Note: vis given. 2Admin Note: 3 shots, exposure at [employer] Medications acetaminophen-codeine 300 mg-30 mg oral tablet [...] 0 Refills, Maintenance, 04/17/21 16:38:00 EST, Gel, [facility] #[id number], Partial fill upon patient request if the [...] 04/27/07 Active OA (osteoarthritis) of knee(Confirmed) Active *[id number] Care Partn er Gill Sharpe(Confirmed) Active Type 2 diabetes mellitus(Confirmed) Active 1aquatherapy @ [facility] 2fear and mistrust of medications 3distrust and fear of medications. wants to stick with natural treatments 4nasal mask [id number] delmi'd. Severe sleep apnea. 5did not tolerate CPAP. repeat titration pendg. Social History Social History Type Response Smoking Status Never smoker entered on: 04/09/14 Sex
--- OUTSIDE RECORDS SUMMARY | 2022-11-26 21:44 | XMS_ITS | Continuity of Care Document ---
Author Name Unknown Organization [facility] Address [address] [place] [address]- Care Team Providers Care Nuclear Equipment Sales Engineer Name Role Phone Lisha Lopez MD Primary Care Physician Encounter [facility] [place] Date(s): 04/01/21 - 05/01/21 [facility] [address] [place] [address]- Attending Physician: Holden Rosario Admitting Physician: Holden [...] given. 2Admin Note: 3 shots, exposure at [employer] Medications Centravites 50 Plus By Mouth, Daily, [...] 0 Refills, Maintenance, 04/17/21 16:38:00 EST, Gel, [facility] #[id number], Partial fill upon patient request if the [...] 04/27/07 Active OA (osteoarthritis) of knee(Confirmed) Active *[id number] Care Partn er Gill Sharpe(Confirmed) Active Type 2 diabetes mellitus(Confirmed) Active 1aquatherapy @ [facility] 2fear and mistrust of medications 3distrust and fear of medications. wants to stick with natural treatments 4nasal mask [id number] delmi'd. Severe sleep apnea. 5did not tolerate CPAP. repeat titration pendg. Social History Social History Type Response Smoking Status Never smoker entered on: 04/09/14 Sex
--- OUTSIDE RECORDS SUMMARY | 2022-11-26 21:44 | XMS_ITS | Continuity of Care Document ---
Author Name Unknown Organization [facility] Address [address] [place] [address]- Care Team Providers Care Machine Clipper Name Role Phone Lisha Lopez MD Primary Care Physician Encounter [facility] [place] Date(s): 08/07/20 - 09/06/[address] [address]- Allergies, Adverse Reactions, Alerts Substance Reaction Severity Status morphine Active Contrast Dye Active Immunizations Given and Recorded Vaccine Date Status Refusal Reason diphtheria/tetanus/pertussis, acel(DTaP) 1 12/11/06 Given Meningococcal Polysaccharide Vaccine 2 03/24/97 Gi jamie Not Given Vaccine Date Status Refusal Reason pneumococcal 13-valent vaccine 07/11/16 Not Given Patient Refuses 1Admin Note: vis given. 2Admin Note: 3 shots, exposure at [employer] Medications acetaminophen 325 mg oral tablet 650 [...] 04/27/07 Active OA (osteoarthritis) of knee(Confirmed) Active *[id number] Care Partn er Gill Annemarie(Confirmed) Active Type 2 diabetes mellitus(Confirmed) Active 1aquatherapy @ [facility] 2fear and mistrust of medications 3distrust and fear of medications. wants to stick with natural treatments 4nasal mask [id number] delmi'd. Severe sleep apnea. 5did not tolerate CPAP. repeat titration pendg. Social History Social History Type Response Smoking Status Never smoker entered on: 04/09/14 Sex
--- OUTSIDE RECORDS SUMMARY | 2022-11-26 21:44 | XMS_ITS | Continuity of Care Document ---
Author Name Unknown Organization [facility] Address [address] [place] [address]- Care Team Providers Care Knitting Teacher Name Role Phone Lisha Lopez MD Primary Care Physician Encounter [facility] [place] Date(s): 06/11/19 - 08/11/[address] [address]- [facility] Discharge Disposition: A-D/C Home Attending Physician: Lisha Lopez MD Admitting Physician: Lisha Lopez MD Referring Physician: Juan Antonio Johansen DPM Allergies, Adverse Reactions, Alerts Substance Reaction Severity Status morphine Active Contrast Dye Active Immunizations Given and Recorded Vaccine Date Status Refusal Reason diphtheria/tetanus/pertussis, acel(DTaP) 1 12/11/06 Given Meningococcal Polysaccharide Vaccine 2 03/24/97 Gi jamie Not Given Vaccine Date Status Refusal Reason pneumococcal 13-valent vaccine 07/11/16 Not Given Patient Refuses 1Admin Note: vis given. 2Admin Note: 3 shots, exposure at [employer] Medications Aquatherapy Aquatherapy, See Instructions, # [...] 4 Refills, Maintenance, 03/26/19 17:07:00 EST, Gel, [facility] #[id number], 160, cm, 03/26/19 16:28:00 EST, Height, 75, kg, 03/17/19... Start Date: 03/26/19 Status: Ordered niacin 100 mg oral tablet 1 tablet = 100 mg, By Mouth, 2 times a day, for 90 days, with meals, # 180 tablet, 3 Refills, Hard Stop 10/07/20 11:46:00 EDT, 10/13/19 11:46:00 EDT, [facility] #[id number], 160, cm, 04/20/19 9:45:00 EST, Height, 75, [...] 04/27/07 Active OA (osteoarthritis) of knee(Confirmed) Active *[id number]-[facility] Partn rita-Amelia Mueller(Confirmed) Active 1recurrent sx w Persantine MIBI, cardiac cath w/o CAD- Dr Garcia 2003 2aquatherapy @ [facility] 3Multiple hypodensities within the head of the right 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 had phys therapy but worse 7arms/legs 8distrust and fear of medications. wants to stick with natural treatments 9nasal mask [id number] delmi'd. Severe sleep apnea. 10did not tolerate CPAP. repeat titration pendg. Social History Social History Type Response Smoking Status Never smoker entered on: 04/09/14 Sex
--- OUTSIDE RECORDS SUMMARY | 2022-11-26 21:44 | XMS_ITS | Continuity of Care Document ---
Author Name Unknown Organization [facility] Address [address] [place] [address]- Care Team Providers Care Education Assistant Name Role Phone Lisha Lopez MD Primary Care Physician [place] [facility] [place] Date(s): 05/04/21 - 07/02/[address] [address]- Attending Physician: Not on Staff, Attending MD Referring Physician: Lisha Lopez MD Allergies, [...] given. 2Admin Note: 3 shots, exposure at [employer] Medications acetaminophen-codeine 300 mg-30 mg oral tablet [...] 0 Refills, Maintenance, 04/17/21 16:38:00 EST, Gel, [facility] #[id number], Partial fill upon patient request if the [...] 04/27/07 Active OA (osteoarthritis) of knee(Confirmed) Active *[id number] Care Partn er Gill Sharpe(Confirmed) Active Type 2 diabetes mellitus(Confirmed) Active 1aquatherapy @ [facility] 2fear and mistrust of medications 3distrust and fear of medications. wants to stick with natural treatments 4nasal mask [id number] delmi'd. Severe sleep apnea. 5did not tolerate CPAP. repeat titration pendg. Social History Social History Type Response Smoking Status Never smoker entered on: 04/09/14 Sex
--- OUTSIDE RECORDS SUMMARY | 2022-11-26 21:44 | XMS_ITS | Continuity of Care Document ---
Author Name Unknown Organization [facility] Address [address] [place] [address]- Care Team Providers Care Coffee Brewer Name Role Phone Lisha Lopez MD Primary Care Physician En[place] [facility] [id number] Date(s): 09/30/21 - 12/09/[address] [address]- Attending Physician: Not on Staff, Attending MD Referring Physician: Jacquie STOCK, Carlitos Rajan Allergies, Adverse Reactions, Alerts Substance Reaction Severity Status morphine Active Contrast Dye Active Immunizations Given and Recorded Vaccine Date Status Refusal Reason diphtheria/tetanus/pertussis, acel(DTaP) 1 12/11/06 Given Meningococcal Polysaccharide Vaccine 2 03/24/97 Gi jamie Not Given Vaccine Date Status Refusal Reason pneumococcal 13-valent vaccine 07/11/16 Not Given Patient Refuses 1Admin Note: vis given. 2Admin Note: 3 shots, exposure at [employer] Medications albendazole 200 mg oral tablet 2 tablet = 400 mg, By Mouth, Once, with meals; may repeat in 2 weeks, # 4 tablet, 0 Refills, Soft Stop, 09/09/21 11:45:00 EDT, Tablet, [facility] #[id number], Partial fill upon patient request if the [...] 0 Refills, Maintenance, 08/14/21 10:31:00 EDT, Gel, [facility] 3, Partial fill upon patient [...] 04/27/07 Active OA (osteoarthritis) of knee(Confirmed) Active *[id number] Care Warner Sharpe(Confirmed) Active Type 2 diabetes mellitus(Confirmed) Active 1aquatherapy @ [facility] 2fear and mistrust of medications 3distrust and fear of medications. wants to stick with natural treatments 4nasal mask [id number] delmi'd. Severe sleep apnea. 5did not tolerate CPAP. repeat titration pendg. Social History Social History Type Response Smoking Status Never smoker entered on: 04/09/14 Sex Care Team Personnel Name: Lisha Lopez MD Address: [address] [place] [address]-
--- OUTSIDE RECORDS SUMMARY | 2022-11-26 21:44 | XMS_ITS | Continuity of Care Document ---
Author Name Unknown Organization [facility] Address [address] [place] [address]- Care Team Providers Care Superintendent Plant Protection Name Role Phone Lisha Lopez MD Primary Care Physician Encounter [facility] [place] Date(s): 03/17/19 - 03/27/19 [facility] [address] [place] [address]- [facility] Attending Physician: Holden Rosario Admitting Physician: Holden [...] given. 2Admin Note: 3 shots, exposure at [employer] Medications Aquatherapy Aquatherapy, See Instructions, # 3 [...] 03/26/19 17:07:00 EST, Gel, [facility] #[id number], 160, cm, 03/26/19 16:28:00 EST, Height, 75, [...] Refills 0, Tot. Refills 0, Acute,for pain, 04/02/19 17:07:00 EST, 03/26/19 17:07:00 EST, Route to Pharmacy Electronically, [facility] #[id number] Tablet, 160, cm, 03/26/19 16:28:0... 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 had phys therapy but worse 7arms/legs 8distrust and fear of medications. wants to stick with natural treatments 9nasal mask [id number] delmi'd. Severe sleep apnea. 10did not tolerate CPAP. repeat titration pendg. Social History Social History Type Response Smoking Status Never smoker entered on: 04/09/14 Sex
--- OUTSIDE RECORDS SUMMARY | 2022-11-26 21:44 | XMS_ITS | Continuity of Care Document ---
Author Name Unknown Organization [facility] Address [address] [place] [address]- Care Team Providers Care Home Care Attendant Name Role Phone Lisha Lopez MD Primary Care Physician [place] [facility] [place](s): 01/21/22 - 02/20/22 [facility] [address] [place], [place] [address] Attending Physician: Holden Rosario Admitting Physician: Holden Rosario Referring Physician: Holden Rosario Referring Physician: Livier Bowers Referring Physician: Shaunna Huston Allergies, Adverse Reactions, Alerts Substance Reaction Severity Status morphine Active Contrast Dye Active Immunizations Given and Recorded Vaccine Date Status Refusal Reason diphtheria/tetanus/pertussis, acel(DTaP) 1 12/11/06 Given Meningococcal Polysaccharide Vaccine 2 03/24/97 Gi jamie Not Given Vaccine Date Status Refusal Reason pneumococcal 13-valent vaccine 07/11/16 Not Given Patient Refuses 1Admin Note: vis given. 2Admin Note: 3 shots, exposure at [employer] Medications acetaminophen-codeine 300 mg-30 mg oral tablet [...] 0 Refills, Maintenance, 08/14/21 10:31:00 EDT, Gel, [facility] 3, Partial fill upon patient request if the prescription is for a schedule II opioid drug., 160, cm, ... Start Date: 08/14/21 Status: Ordered diclofenac 1% topical gel 1 application, Topically, 4 times a day, 2 g per dose, 4 x a day. not to exceed 8 grams/day/single joint of upper extremities, # 100 Gm, 0 Refills, Maintenance, 01/07/22 15:36:00 EDT, Gel, [facility] #[id number], Partial fill upon patient request... Start Date: 01/07/22 Stop Date: 01/14/22 Status: Ordered diclofenac sodium 75 mg oral delayed release tablet 1 tablet = 75 mg, By Mouth, 2 times a day, # 28 tablet, 0 Refills, Maintenance, 01/11/22 9:43:00 EDT, EC Tablet, [facility] #[id number], Partial fill upon patient request if the [...] Active OA (osteoarthritis) of knee Confirmed Active *[id number] Insulation Installer Gill Sharpe Confirmed Active Type 2 diabetes mellitus Confirmed Active 1aquatherapy @ [facility] 2fear and mistrust of medications 3distrust and fear of medications. wants to stick with natural treatments 4nasal mask [id number] delmi'd. Severe sleep apnea. 5did not tolerate CPAP. repeat titration pendg. Social History Social History Type Response Smoking Status Never smoker entered on: 04/09/14 Sex Patient Care team information Care Team Personnel Name: Lara Kern RN Position: [facility] RN Member Role: Primary Care Nurse Name: Lisha Lopez MD Position: [facility] Primary Care Physician Member Role: PCP Address: Address: [address] [place] [address]- Name: Marbella Costa RN Position: [facility] RN Member Role: Primary Care Nurse Name: Alisia Rojo RN Position: [facility] ED RN W/OE and Tasks Member Role: Primary Care Nurse Name: Monica Peña RN Position: [facility] RN Member Role: Primary Care Nurse Name: Kiersten Thomas RN Position: [facility] RN Member Role: Primary Care Nurse Care Team Related Persons Name: SLOAN HUERTAS Address: [place] [address]
--- OUTSIDE RECORDS SUMMARY | 2022-11-26 21:44 | XMS_ITS | Continuity of Care Document ---
Author Name Unknown Organization [facility] Address [address] [place] [address]- Care Team Providers Care Wood Casket Assembler Name Role Phone Lisha Lopez MD Primary Care Physician [place] [facility] [place] [id number] Date(s): 08/21/21 - 09/20/[address] [address] Attending Physician: Holden Rosario Admitting Physician: [...] given. 2Admin Note: 3 shots, exposure at [employer] Medications albendazole 200 mg oral tablet 2 tablet = 400 mg, By Mouth, Once, with meals; may repeat in 2 weeks, # 4 tablet, 0 Refills, Soft Stop, 09/09/21 11:45:00 EDT, Tablet, [facility] #[id number], Partial fill upon patient request if the [...] Maintenance, 08/14/21 10:31:00 EDT, Gel, [facility] 3, Partial fill upon patient [...] 04/27/07 Active OA (osteoarthritis) of knee(Confirmed) Active *[id number] Care Partn er Gill Sharpe(Confirmed) Active Type 2 diabetes mellitus(Confirmed) Active 1aquatherapy @ [facility] 2fear and mistrust of medications 3distrust and fear of medications. wants to stick with natural treatments 4nasal mask [id number] delmi'd. Severe sleep apnea. 5did not tolerate CPAP. repeat titration pendg. Social History Social History Type Response Smoking Status Never smoker entered on: 04/09/14 Sex
--- OUTSIDE RECORDS SUMMARY | 2022-11-26 21:44 | XMS_ITS | Continuity of Care Document ---
Author Name Unknown Organization [facility] Address [address] [place] [address]- Care Team Providers Care Lithographic Etcher Name Role Phone Lisha Lopez MD Primary Care Physician [place] [facility] [place] Date(s): 09/15/21 - 10/15/[address] [address]- Allergies, Adverse Reactions, Alerts Substance Reaction Severity Status morphine Active Contrast Dye Active Immunizations Given and Recorded Vaccine Date Status Refusal Reason diphtheria/tetanus/pertussis, acel(DTaP) 1 12/11/06 Given Meningococcal Polysaccharide Vaccine 2 03/24/97 Gi jamie Not Given Vaccine Date Status Refusal Reason pneumococcal 13-valent vaccine 07/11/16 Not Given Patient Refuses 1Admin Note: vis given. 2Admin Note: 3 shots, exposure at [employer] Medications albendazole 200 mg oral tablet 2 tablet = 400 mg, By Mouth, Once, with meals; may repeat in 2 weeks, # 4 tablet, 0 Refills, Soft Stop, 09/09/21 11:45:00 EDT, Tablet, [facility] #[id number], Partial fill upon patient request if the [...] 0 Refills, Maintenance, 08/14/21 10:31:00 EDT, Gel, [facility] 3, Partial fill upon [...] 04/27/07 Active OA (osteoarthritis) of knee(Confirmed) Active *[id number] Care Partn rita Sharpe(Confirmed) Active Type 2 diabetes mellitus(Confirmed) Active 1aquatherapy @ [facility] 2fear and mistrust of medications 3distrust and fear of medications. wants to stick with natural treatments 4nasal mask [id number] delmi'd. Severe sleep apnea. 5did not tolerate CPAP. repeat titration pendg. Social History Social History Type Response Smoking Status Never smoker entered on: 04/09/14 Sex
--- OUTSIDE RECORDS SUMMARY | 2022-11-26 21:44 | XMS_ITS | Continuity of Care Document ---
Author Name Unknown Organization [facility] Address [address] [place] [address]- Care Team Providers Care Product Coordinator Name Role Phone Lisha Lopez MD Primary Care Physician En[place] [facility] [place] Date(s): 02/11/21 - 03/13/[address] [address]- Allergies, Adverse Reactions, Alerts Substance Reaction Severity Status morphine Active Contrast Dye Active Immunizations Given and Recorded Vaccine Date Status Refusal Reason diphtheria/tetanus/pertussis, acel(DTaP) 1 12/11/06 Given Meningococcal Polysaccharide Vaccine 2 03/24/97 Gi jamie Not Given Vaccine Date Status Refusal Reason pneumococcal 13-valent vaccine 07/11/16 Not Given Patient Refuses 1Admin Note: vis given. 2Admin Note: 3 shots, exposure at [employer] Medications acetaminophen-codeine 300 mg-30 mg oral tablet 1, tablet, By Mouth, Every 6 hours, PRN, for 3 days, # 12 tablet, Refills 0, Tot. Refills 0, Acute,severe pain, 03/16/21 12:42:00 EST, 03/13/21 12:42:00 EST, Route to Pharmacy Electronically, [facility] #[id number], Partial fill upon patient req... Start Date: [...] 04/27/07 Active OA (osteoarthritis) of knee(Confirmed) Active *[id number] Care Partn er Gill Sharpe(Confirmed) Active Type 2 diabetes mellitus(Confirmed) Active 1aquatherapy @ [facility] 2fear and mistrust of medications 3distrust and fear of medications. wants to stick with natural treatments 4nasal mask [id number] delmi'd. Severe sleep apnea. 5did not tolerate CPAP. repeat titration pendg. Social History Social History Type Response Smoking Status Never smoker entered on: 04/09/14 Sex
--- OUTSIDE RECORDS SUMMARY | 2022-11-26 21:44 | XMS_ITS | Continuity of Care Document ---
Author Name Unknown Organization [facility] Address [address] [place] [address]- Care Team Providers Care Double End Tenoner Operator Name Role Phone Lisha Lopez MD Primary Care Physician Encounter [facility] Date(s): 06/13/20 - 06/15/[address] [address]- Discharge Disposition: A-D/C Home Attending Physician: Aracely Beasley MD Admitting Physician: Rachel Andrews MD Referring Physician: Danae Quesada MD Allergies, Adverse Reactions, Alerts Substance Reaction Severity Status morphine Active Contrast Dye Active Immunizations Given and Recorded Vaccine Date Status Refusal Reason diphtheria/tetanus/pertussis, acel(DTaP) 1 12/11/06 Given Meningococcal Polysaccharide Vaccine 2 03/24/97 Gi jamie Not Given Vaccine Date Status Refusal Reason pneumococcal 13-valent vaccine 07/11/16 Not Given Patient Refuses 1Admin Note: vis given. 2Admin Note: 3 shots, exposure at [employer] Medications acetaminophen 325 mg oral tablet [...] opioid drug. Start Date: 06/15/20 Status: Ordered Vitamin C 500 mg oral [...] 04/27/07 Active OA (osteoarthritis) of knee(Confirmed) Active *[id number] Care Partn er Gill Sharpe(Confirmed) Active Type 2 diabetes mellitus(Confirmed) Active 1aquatherapy @ [facility] 2fear and mistrust of medications 3distrust and fear of medications. wants to stick with natural treatments 4nasal mask [id number] delmi'd. Severe sleep apnea. 5did not tolerate CPAP. repeat titration pendg. Results Radiology Reports * Exam Date Time Procedure Performing Provider Status 06/13/20 11:34 PM Toe Great Right Foot Grodzicka , Beat a; Auth (Verified) Notes: (Toe Great Right Foot) Reason For Exam: with Pain;Trauma RESULT: Toe Great Right Foot Toe Great Right Foot, 3 views Hx of Present Illness: patient reports getting up to go to bathroom - felt dizzy - fell - hit rightleg on coffee table- possible - patient tried drinking water but still feels fuzzy tried to cleanout ears with no change- patient denies cp- sob - but is reporting anxiety; Reason: Trauma; with Pain; Clinical Question(s): Fracture COMPARISON: 05/21/2018 FINDINGS: No fractures or bone lesions. Unchanged linear lucency coursing through the first metatarsal head-neck junction compared with exam from 2019 which demonstrates well corticated margins. Unchanged deformity of the distal first metatarsal. Joint space narrowing of the first metatarsophalangeal joint and throughout the midfoot joints. Mild hallux valgus deformity. Mild soft tissue swelling of the first metatarsophalangeal joint. IMPRESSION: 1. No acute fracture or dislocation. 2. Mild hallux valgus deformity with unchanged linear lucency through the first metatarsal head-neck junction with well-corticated margins. WSN: [id number] Ordering Physician: Danae Quesada Dictated By: Jostin Garrison DO Dictated Date/Time: 06/13/20 11:43 p Reviewed By: Jostin Garrison DO Signed By: Jostin Garrison DO Signed Date/Time: 06/13/20 11:43 pm Transcribed By: LORENA Transcribed Date/Time: 06/13/20 11:40 pm * Exam Date Time Procedure Performing Provider Status 06/13/20 11:34 PM XR Femur 2 Views Right Grodzicka , Be benitez; Auth (Verified) Notes: (XR Femur 2 Views Right) Reason For Exam: with Pain;Trauma RESULT: Femur 2 Views Right XR Hip w/Pelvis 2-3 View Right, Femur 2 Views Right Reason: Trauma; With Pain; Clinical Question(s): Fracture COMPARISON: None. FINDINGS: Pelvis is intact. No dislocation of the hips. The right femur is intact. Mild joint space narrowing of the hips with osteophytic overgrowth. Moderate space narrowing of themedial compartment of the knee with moderate joint space in the lateral compartment and osteophyticspurring of the lateral femoral condyle and lateral tibial plateau. No soft tissue abnormality. No joint effusion. IMPRESSION: No fracture or dislocation. WSN: [id number] Ordering Physician: Danae Quesada Dictated By: Jostin Garrison DO Dictated Date/Time: 06/13/20 11:40 p Reviewed By: Jostin Garrison DO Signed By: Jostin Garrison DO Signed Date/Time: 06/13/20 11:40 pm Transcribed By: LORENA Transcribed Date/Time: 06/13/20 11:38 pm * Exam Date Time Procedure Performing Provider Status 06/13/20 11:34 PM XR Hip w/Pelvis 2-3 View Right Grodzi cka , Pao; Auth (Verified) Notes: (XR Hip w/Pelvis 2-3 View Right) Reason For Exam: With Pain;Trauma RESULT: XR Hip w/Pelvis 2-3 View Right XR Hip w/Pelvis 2-3 View Right, Femur 2 Views Right Reason: Trauma; With Pain; Clinical Question(s): Fracture COMPARISON: None. FINDINGS: Pelvis is intact. No dislocation of the hips. The right femur is intact. Mild joint space narrowing of the hips with osteophytic overgrowth. Moderate space narrowing of themedial compartment of the knee with moderate joint space in the lateral compartment and osteophyticspurring of the lateral femoral condyle and lateral tibial plateau. No soft tissue abnormality. No joint effusion. IMPRESSION: No fracture or dislocation. WSN: [id number] Ordering Physician: Danae Quesada Dictated By: Jostin Garrison DO Dictated Date/Time: 06/13/20 11:40 p Reviewed By: Jostin Garrison DO Signed By: Jostin Garrison DO Signed Date/Time: 06/13/20 11:40 pm Transcribed By: LORENA Transcribed Date/Time: 06/13/20 11:38 pm * Exam Date Time Procedure Performing Provider Status 06/13/20 11:34 PM Finger Thumb Right Hand Grodzicka , B eata; Auth (Verified) Notes: (Finger Thumb Right Hand) Reason For Exam: with Pain;Trauma RESULT: Finger Thumb Right Hand Finger Thumb Right Hand, 3 views Hx of Present Illness: patient reports getting up to go to bathroom - felt dizzy - fell - hit rightleg on coffee table- possible - patient tried drinking water but still feels fuzzy tried to cleanout ears with no change- patient denies cp- sob - but is reporting anxiety; Reason: Trauma; with Pain; Clinical Question(s): Fracture COMPARISON: None. FINDINGS: No fractures or bone lesions. Mild degenerative changes at the first carpal metacarpal joint and throughout the interphalangeal joints diffusely. No definite soft tissue abnormality. IMPRESSION: No fracture or dislocation. WSN: [id number] Ordering Physician: Danae Quesada Dictated By: Jostin Garrison DO Dictated Date/Time: 06/13/20 11:37 p Reviewed By: Jostin Garrison DO Signed By: Jostin Garrison DO Signed Date/Time: 06/13/20 11:37 pm Transcribed By: LORENA Transcribed Date/Time: 06/13/20 11:36 pm Vital Signs Most recent to oldest [Reference Range]: 1 2 3 Height 160 cm (06/15/20 2:38 PM) 160 cm (06/15/20 1:44 PM) 160 cm (06/15/20 12:33 PM) Weight 74.6 kg (06/15/20 1:44 PM) 74.6 kg (06/14/20 4:01 PM) 77 kg (06/14/20 5:56 AM) Oxygen Saturation [94-100 %] 97 % (06/15/20 2:38 PM) 100 % (06/15/20 6:00 AM) 100 % (06/15/20 3:00 AM) Pulse Rate [55-90 bpm] 62 bpm (06/15/20 2:38 PM) 53 bpm *L* (06/15/20 6:00 AM) 54 bpm *L* (06/15/20 3:00 AM) Body Mass Index [18.5-24.99] 29.14 *H* (06/14/20 4:01 PM) 30.08 *>HHI* (06/14/20 5:56 AM) 30.08 *>HHI* (06/14/20 3:49 AM) Blood Pressure [90-138/55-84 mm Hg] 128/71mm Hg (06/15/20 2:38 PM) 162/80mm Hg *H* (06/15/20 6:00 AM) 147/70mm Hg *H* (06/15/20 3:00 AM) Respiratory Rate [16-30 br/min] 16 br/min (06/15/20 2:38 PM) 18 br/min (06/15/20 6:00 AM) 18 br/min (06/15/20 3:00 AM) Temperature [96.8-100.4 DegF] 98.2 DegF (06/15/20 2:38 PM) 97.6 DegF (06/15/20 6:00 AM) 97.5 DegF (06/15/20 3:00 AM) Liters per Minute 0 L/min (06/15/20 2:38 PM) 2 L/min (06/15/20 6:00 AM) 2 L/min (06/15/20 3:00 AM) Mode of Delivery (Oxygen) Room air (06/15/20 2:38 PM) Nasal cannula (06/15/20 6:00 AM) Nasal CPAP (06/15/20 3:00 AM) Blood pressure sites Arm, right (06/15/20 2:38 PM) Arm, right (06/15/20 6:00 AM) Arm, right (06/15/20 3:00 AM) Temperature Route Temporal (06/15/20 2:38 PM) Oral (06/15/20 6:00 AM) Oral (06/15/20 3:00 AM) Dry Weight 74.6 kg (06/14/20 4:01 PM) 77 kg (06/14/20 5:56 AM) 77 kg (06/14/20 3:49 AM) Weight Obtained Via Standing scale (06/14/20 4:01 PM) Social History Social History Type Response Smoking Status Never smoker entered on: 04/09/14 Sex
--- OUTSIDE RECORDS SUMMARY | 2022-11-26 21:44 | XMS_ITS | Continuity of Care Document ---
Author Name Unknown Organization [facility] Address [address] [address]- Care Team Providers Care Posting Machine Operator Name Role Phone Lisha Lopez MD Primary Care Physician [place] [facility] [place]07[place] 07[place]14/20 [facility] [address] [address]- Attending Physician: Lisha Lopez MD Admitting Physician: [...] given. 2Admin Note: 3 shots, exposure at [employer] Medications acetaminophen 325 mg oral tablet 650 [...] 04/27/07 Active OA (osteoarthritis) of knee(Confirmed) Active *[id number] Care Partn er Gill Sharpe(Confirmed) Active Type 2 diabetes mellitus(Confirmed) Active 1aquatherapy @ [facility] 2fear and mistrust of medications 3distrust and fear of medications. wants to stick with natural treatments 4nasal mask [id number] delmi'd. Severe sleep apnea. 5did not tolerate CPAP. repeat titration pendg. Social History Social History Type Response Smoking Status Never smoker entered on: 04/09/14 Sex
--- OUTSIDE RECORDS SUMMARY | 2022-11-26 21:44 | XMS_ITS | Continuity of Care Document ---
Author Name Unknown Organization [facility] Address [address] [place] [address]- Care Team Providers Care Felt Finishing Supervisor Name Role Phone Lisha Lopez MD Primary Care Physician Encounter [facility] Date(s): 08/12/20 - 09/11/[address] [address]- Allergies, Adverse Reactions, Alerts Substance Reaction Severity Status morphine Active Contrast Dye Active Immunizations Given and Recorded Vaccine Date Status Refusal Reason diphtheria/tetanus/pertussis, acel(DTaP) 1 12/11/06 Given Meningococcal Polysaccharide Vaccine 2 03/24/97 Gi jamie Not Given Vaccine Date Status Refusal Reason pneumococcal 13-valent vaccine 07/11/16 Not Given Patient Refuses 1Admin Note: vis given. 2Admin Note: 3 shots, exposure at [employer] Medications acetaminophen 325 mg oral tablet 650 [...] 04/27/07 Active OA (osteoarthritis) of knee(Confirmed) Active *[id number] Care Partn er Gill Sharpe(Confirmed) Active Type 2 diabetes mellitus(Confirmed) Active 1aquatherapy @ [facility] 2fear and mistrust of medications 3distrust and fear of medications. wants to stick with natural treatments 4nasal mask [id number] delmi'd. Severe sleep apnea. 5did not tolerate CPAP. repeat titration pendg. Social History Social History Type Response Smoking Status Never smoker entered on: 04/09/14 Sex
--- OUTSIDE RECORDS SUMMARY | 2022-11-26 21:44 | XMS_ITS | Continuity of Care Document ---
Author Name Unknown Organization [facility] Address [address] [place] [address]- Care Team Providers Care Commanding Officer Motorized Squad Name Role Phone Lisha Lopez MD Primary Care Physician [place] [facility] [place]19[place] - 07/19/[address] [address]- Allergies, Adverse Reactions, Alerts Substance Reaction Severity Status morphine Active Contrast Dye Active Immunizations Given and Recorded Vaccine Date Status Refusal Reason diphtheria/tetanus/pertussis, acel(DTaP) 1 12/11/06 Given Meningococcal Polysaccharide Vaccine 2 03/24/97 Gi jamie Not Given Vaccine Date Status Refusal Reason pneumococcal 13-valent vaccine 07/11/16 Not Given Patient Refuses 1Admin Note: vis given. 2Admin Note: 3 shots, exposure at [employer] Medications acetaminophen 325 mg oral tablet 650 [...] 04/27/07 Active OA (osteoarthritis) of knee(Confirmed) Active *[id number] Care Partn rita Graland Annemarie(Confirmed) Active Type 2 diabetes mellitus(Confirmed) Active 1aquatherapy @ [facility] 2fear and mistrust of medications 3distrust and fear of medications. wants to stick with natural treatments 4nasal mask [id number] delmi'd. Severe sleep apnea. 5did not tolerate CPAP. repeat titration pendg. Social History Social History Type Response Smoking Status Never smoker entered on: 04/09/14 Sex
--- OUTSIDE RECORDS SUMMARY | 2022-11-26 21:44 | XMS_ITS | Continuity of Care Document ---
Author Name Unknown Organization [facility] Address [address] [place] [address]- Care Team Providers Care Administrative Fellow Name Role Phone Lisha Lopez MD Primary Care Physician Encounter [facility] Date(s): 07/16/21 - 08/15/[address] [address]- Allergies, Adverse Reactions, Alerts Substance Reaction Severity Status morphine Active Contrast Dye Active Immunizations Given and Recorded Vaccine Date Status Refusal Reason diphtheria/tetanus/pertussis, acel(DTaP) 1 12/11/06 Given Meningococcal Polysaccharide Vaccine 2 03/24/97 Gi jamie Not Given Vaccine Date Status Refusal Reason pneumococcal 13-valent vaccine 07/11/16 Not Given Patient Refuses 1Admin Note: vis given. 2Admin Note: 3 shots, exposure at [employer] Medications B 100 Complex 1 tablet, By [...] 0 Refills, Maintenance, 08/14/21 10:31:00 EDT, Gel, [facility], Partial fill upon patient [...] 04/27/07 Active OA (osteoarthritis) of knee(Confirmed) Active *[id number] Care Partn er Gill Sharpe(Confirmed) Active Type 2 diabetes mellitus(Confirmed) Active 1aquatherapy @ [facility] 2fear and mistrust of medications 3distrust and fear of medications. wants to stick with natural treatments 4nasal mask [id number] delmi'd. Severe sleep apnea. 5did not tolerate CPAP. repeat titration pendg. Social History Social History Type Response Smoking Status Never smoker entered on: 04/09/14 Sex
--- OUTSIDE RECORDS SUMMARY | 2022-11-26 21:44 | XMS_ITS | Continuity of Care Document ---
Author Name Unknown Organization [facility] Address [address] [place] [address]- Care Team Providers Care Mechanical Oxidizer Name Role Phone Lisha Lopez MD Primary Care Physician Encounter [facility] Date(s): 02/12/21 - 03/14/21 [facility] [address] [place] [address]- Attending Physician: Holden Rosario Admitting Physician: Holden [...] given. 2Admin Note: 3 shots, exposure at [employer] Medications acetaminophen-codeine 300 mg-30 mg oral tablet 1, tablet, By Mouth, Every 6 hours, PRN, for 3 days, # 12 tablet, Refills 0, Tot. Refills 0, Acute,severe pain, 03/16/21 12:42:00 EST, 03/13/21 12:42:00 EST, Route to Pharmacy Electronically, [id number], Partial fill upon patient req... Start Date: [...] 04/27/07 Active OA (osteoarthritis) of knee(Confirmed) Active *[id number] Care Partn er Gill Sharpe(Confirmed) Active Type 2 diabetes mellitus(Confirmed) Active 1aquatherapy @ [facility] 2fear and mistrust of medications 3distrust and fear of medications. wants to stick with natural treatments 4nasal mask [id number] delmi'd. Severe sleep apnea. 5did not tolerate CPAP. repeat titration pendg. Social History Social History Type Response Smoking Status Never smoker entered on: 04/09/14 Sex
--- OUTSIDE RECORDS SUMMARY | 2022-11-26 21:44 | XMS_ITS | Continuity of Care Document ---
Author Name Unknown Organization [facility] Address [address] [place] [address]- Care Team Providers Care Medical Dosimetrist Name Role Phone Lisha Lopez MD Primary Care Physician En[place] [facility] [id number] Date(s): 04/27/19 - 05/07/19 [facility] [address] [place] [address]- [place] Attending Physician: Holden Rosario Admitting Physician: AdmHolden [...] given. 2Admin Note: 3 shots, exposure at [employer] Medications Aquatherapy Aquatherapy, See Instructions, # [...] 4 Refills, Maintenance, 03/26/19 17:07:00 EST, Gel, [id number], 160, cm, 03/26/19 16:28:00 EST, Height, 75, kg, 03/17/19... Start Date: 03/26/19 Status: Ordered niacin 100 mg oral tablet 1 tablet = 100 mg, By Mouth, 2 times a day, for 90 days, with meals, # 180 tablet, 3 Refills, Hard Stop 10/07/20 11:46:00 EDT, 10/13/19 11:46:00 EDT, [id number], 160, cm, 04/20/19 9:45:00 EST, Height, 75, [...] 04/27/07 Active OA (osteoarthritis) of knee(Confirmed) Active *[id number]-[facility] Partn rita-Amelia Mueller(Confirmed) Active 1recurrent sx w Persantine MIBI, cardiac cath w/o CAD- Dr Garcia 2003 2aquatherapy @ [facility] 3Multiple hypodensities within the head of the right 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 had phys therapy but worse 7arms/legs 8distrust and fear of medications. wants to stick with natural treatments 9nasal mask [id number] delmi'd. Severe sleep apnea. 10did not tolerate CPAP. repeat titration pendg. Social History Social History Type Response Smoking Status Never smoker entered on: 04/09/14 Sex
--- OUTSIDE RECORDS SUMMARY | 2022-11-26 21:44 | XMS_ITS | Continuity of Care Document ---
Author Name Unknown Organization [facility] Address [address] [place] [address]- Care Team Providers Care Weatherstrip Machine Operator Name Role Phone Lisha Lopez MD Primary Care Physician [place] [facility] [place] [id number] Date(s): 09/02/20 - 10/02/[address] [address]- Attending Physician: Holden Rosario Admitting Physician: Holden [...] given. 2Admin Note: 3 shots, exposure at [employer] Medications acetaminophen 325 mg oral tablet [...] 04/27/07 Active OA (osteoarthritis) of knee(Confirmed) Active *[id number] Care Partn rita Sharpe(Confirmed) Active Type 2 diabetes mellitus(Confirmed) Active 1aquatherapy @ [facility] 2fear and mistrust of medications 3distrust and fear of medications. wants to stick with natural treatments 4nasal mask [id number] delmi'd. Severe sleep apnea. 5did not tolerate CPAP. repeat titration pendg. Social History Social History Type Response Smoking Status Never smoker entered on: 04/09/14 Sex
[2022-11-26 22:23] VITALS: BP 147/68; PULSE 59; RESP 18; TEMP 36.8; O2SAT 96
[2022-11-26] MEDS: Amoxicillin/Potassium Clav 875 MG TABLET PO (23:14)
[2022-11-26 23:20] VITALS: BP 182/92; PULSE 59; RESP 16; TEMP 36.3; O2SAT 98
--- NOTE | 2022-11-26 23:33 | MHC.EDTECH ---
THIS PCT ASSUMED CARE OF PT AT 2300 ,VITALS SIGN TAKEN ,PT WAS ASSISTED WITH AMBULATION TO BATHROOM AND BACK TO BED ,URINE SAMPLE COLLECTED ,ESR AND TROP DRAWN AND ALL SENT TO LAB .
[2022-11-26 23:38] LABS: Appearance Urine Clear; Color Urine Yellow; Glucose Urine UA Negative (Negative); Leukocyte Esterase Urine Trace (Negative); Nitrite Urine Negative (Negative); PH 6.5 (5.0-9.0); UMIC TRIGGER UACC YES; Urine Blood Negative (Negative); Urine Ketones Negative (Negative); Urine Protein Negative (Neg-Trace)
[2022-11-26 23:40] LABS: Bacteria Urine None Seen (None Seen); Hyaline Casts Urine 0-2 /LPF (0-2); RBC Urine 0-2 /HPF (0-2); Squamous Epithelial Cell Urine 0-2 /HPF (0-2); WBC Urine 0-5 /HPF (0-5)
[2022-11-27 00:08] LABS: Troponin-I High Sensitivity < 2.7 ng/L (<3.5-17.0)
[2022-11-27 00:11] VITALS: BP 157/75; PULSE 56; RESP 16; TEMP 36.8; O2SAT 98
[2022-11-27 00:16] LABS: Erythrocyte Sedimentation Rate 14 MM/HR (0-20)
--- NOTE | 2022-11-27 01:30 | PC.NURSE ---
Patient is alert and oriented x3, VSS. Patient reports right dental/facial pain is at tolerable level 4/10 at present. Patient was seen by ED provider, plan for patient to be discharge home on oral antibiotics and Tylenol with Codeine PRN for pain management. Patient is in agreement with plan for discharge, patient signed discharge notice and verbalized understanding of discharge instructions. Patient discharged home with her daughter in wheel chair.
== END 2022-11-27 01:33 | disposition home or self-care (01) ==
PROVIDERS: Registered Nurse Emergency; Emergency Provider Emergency Medicine; PCP Internal Medicine
DX: K04.7 Periapical abscess without sinus (principal); H53.143 Visual discomfort, bilateral; R00.1 Bradycardia, unspecified; R51.9 Headache, unspecified; H53.8 Other visual disturbances; Z79.899 Other long term (current) drug therapy
CPT/HCPCS: 36415; 80053; 81001; 84484; 85025; 85652; 93005; 99283; 99285

== ENCOUNTER 2025-03-25 13:33 | Outpatient (AMB) | payer OTHER, SELFPAY ==
[2025-03-25 13:41] VITALS: BMI 26.0
--- NOTE | 2025-03-25 13:41 | A.OFFVIS_ITS ---
Vital Signs 03/25/25 13:41 Height 5 ft 3 in Weight 147 lb BMI 26.0 Intake Visit Reasons: Cellulitis of Left Toe Intake Note: Vibha is an 84 year old female who presents today as a new patient for an evaluation of her left toe cellulites. Patient reports she was prescribed antibiotics while she was seen at urgent care about 2 days ago. She states this has been going since january and she finds that her toe nail is growing inward. she has been applying Neosporin and lortrimin and has found no relief for her symptom. 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 She states she has had an ingrown nail since January. She recently was seen by another provider who started her on oral doxycycline, which she has been taking twice a day and has proximally 2 days left to medication for. She has been soaking her toes with peroxide, has not found relief. She also believes its starting on her left side as well. Review of Systems Const All systems reviewed & are unremarkable except as noted in HPI and below Physical Exam Vital Signs: BMI result Body Mass Index 26.0 Extrem Other: *Bilateral Lower Extremity Focused Exam Vascular: DP/PT 2/4, CFT<3s to digits, TG warm to cool, mild edema to the right hallux lateral border Derm: (+) erythema with fluctuance adjacent to the distap tip of the lateral border righ hallux. scant purulent drainage after I&D. Neuro: Protective sensation grossly intact to bilateral lower extremities. MSK: moderate tenderness on palpation of the lateral border right hallux, mild tenderness on palpation of the medial border right hallux. Office Procedures AMB Debridement /Avulsion Details: Procedure: Nail debridement Location: 10 nails, bilateral feet Anesthesia: N/A Description: The affected toenails were cleansed with an antiseptic solution. Using sterile nail nippers and a rotary darren, dystrophic and mycotic nail material was carefully debrided and reduced in thickness. Care was taken to avoid trauma to the surrounding skin and nail bed. All debris was removed as tolerated. The area was inspected for signs of infection or ulceration. Patient tolerated the procedure well without complications. Tolerance: Patient tolerated procedure well, no immediate complications. The patient has a diagnosis of partial blindness due to her cataracts and presents with elongated, thickened toenails. Due to the patient's visual disability, she is unable to perform self-care for self. This has been shown in the clear signs of ingrown nail infections presenting to both of her great toenails. She requires routine foot care., the patient is at increased risk for complications such as ulceration, infection, and difficulty with self-care. Debridement of elongated toenails is medically necessary to prevent development of pressure-related lesions, reduce risk of secondary infection, and maintain foot health in high-risk comorbidities. 13007-Rldbthhodfx of Nail 6+ Procedure code (CPT) selection complete AMB Incision and Drain Podtry Details: Procedure: Incision and drainage Indication: Right Hallux abscess Anesthesia: Lidocaine 5% jelly Description: The digit was prepped using betadine. The distal edge of the nail was resected, revealing fluctuant nailbed. This was lanced using sterile technique and scant purulence was drained. There was no underlying wound or tunneling. It was dressed with antibiotic cream and a Band-Aid. Tolerance: Patient tolerated procedure well, no immediate complications. Simple: 82692 Incision & Drainage (simple) All charges added?: Procedure code (CPT) selection complete Office Meds Triple Antibiotic 3.5 mg-400 unit-5,000 unit topical ointment packet Performing Provider: Shahbaz King DPM Performing Location: [facility] – [place] [facility] Administered by: Shahbaz King DPM on 03/25/25 14:09 Dose Route Admin Location Dispensed Lot Number Expiration Date [facility] Gore Cutter 1 appl topical 1 appl [id number] [employer] Assessment & Plan Assessment & Plan (1) Abscess of right foot including toes: Code(s): L02.611 - Cutaneous abscess of right foot Category: Medical Plan: * An abscess of the right hallux was lanced. It was irrigated and cleaned. It was dressed with antibiotic ointment and a Band-Aid. The patient was instructed to continue at-home dressing changes with the antibiotic ointment and Band-Aid. * She was instructed to continue her oral antibiotics. (2) Tinea unguium: Code(s): B35.1 - Tinea unguium Category: Medical Plan: * Due to the patient's visual disability, she is unable to perform self-care for self. This has been shown in the clear signs of ingrown nail infections presenting to both of her toenails. She requires routine foot care. * All 10 nails were debrided using a sterile nail Nipper. The patient tolerated procedures with no complications. (3) Paronychia of great toe of right foot: Code(s): L03.031 - Cellulitis of right toe Category: Medical Plan: * Debrided right ingrown nail. * Continue oral antibiotics to completion (4) Paronychia of toe of left foot: Code(s): L03.032 - Cellulitis of left toe Category: Medical Plan: * Debrided left ingrown nails Orders: Orders AMB Incision & Drainage Podiatry Today L02.611 - Cutaneous abscess of right foot Coding Level of Care Code New Pt Level 4 (27489) Diagnoses Abscess of right foot including toes L02.611 Tinea unguium B35.1 Paronychia of great toe of right foot L03.031 Paronychia of toe of left foot L03.032 CPT Codes I&D Drain - DrainPOD 1: 95230 Incision & Drainage (simple) ([id number]) Time Spent (min) 25
--- OUTSIDE RECORDS SUMMARY | 2025-03-25 16:57 | XMS_ITS | Encounter Summary ---
Author Organization [facility] Address [facility] [address] [place] [address] Phone Care Team Providers Care Telephone Operator Receptionist Name Role Phone Lisha Lopez MD Primary Care Provider Encounter Details Date Type Department Care Team (Late Contact Info) Description 09/09/2020 Procedure Pass [facility] [address] [place] [address] Social History Tobacco Use Types Packs/Day Years Used Date Smoking Tobacco: Never Smokeless Tobacco: Never Alcohol Use Standard Drinks/Week Comments No 0 (1 standard drink = 0.6 oz pur e alcohol) Comments No Sex and Gender Information Value Date Recorded Sex Assigned at Female 05/25/2017 5:23 PM EST Legal Sex Female 6:34 PM EST Gender Identity Female 05/25/2017 5:23 PM EST Sexual Orientation Not on file documented as of this encounter Plan of Treatment Upcoming Encounters Date Type Department Care Team (Late st Contact Info) Description 05/09/2025 2:20 PM EST Office Visit [facility] [address] [place] [address] [place] [address] Carla Enriquez MD [address] [place] [phone] [email or web address] documented as of this encounter Visit Diagnoses Not on filedocumented in this encounter Care Teams Telephone Operator Receptionist Relationship Specialty Start Date End Date Lisha Lopez MD [address] [place] [address] PCP - General Internal Medicine 07/05/16 documented as of this encounter Additional Source Comments The information contained in this document represents components of the legal health record. It is not the complete legal health record.[facility]
--- OUTSIDE RECORDS SUMMARY | 2025-03-25 16:57 | XMS_ITS | Encounter Summary ---
Author Organization [facility] Address [facility] [address] [place] [address] Phone Care Team Providers Care Skin Toggler Name Role Phone Lisha Lopez MD Primary Care Provider Encounter Details Date Type Department Care Team (Late Contact Info) Description 10/21/2020 Procedure Pass [facility] DE[facility] [address] [place] [address] Social History Tobacco Use Types Packs/Day Years [...] Description 05/09/2025 2:20 PM EST Office Visit [facility] [address] [place] [address] [place] [address] Carla Enriquez MD [address] [place] [phone] [email or web address] documented as of this encounter Visit Diagnoses Not on filedocumented in this encounter Care Teams Skin Toggler Relationship Specialty Start Date End Date Lisha Lopez MD [address] [place] [address] PCP - General Internal Medicine 07/05/16 documented as of this encounter Additional Source Comments The information contained in this document represents components of the legal health record. It is not the complete legal health record.[facility]
--- OUTSIDE RECORDS SUMMARY | 2025-03-25 16:57 | XMS_ITS | Encounter Summary ---
Author Organization [facility] Address [facility] [address] [place] [address] Phone Care Team Providers Care Cartographic Engineer Name Role Phone Lisha Lopez MD Primary Care Provider Encounter Details Date Type Department Care Team (Late Contact Info) Description 05/26/2017 Procedure Pass [facility], [address] [address] Social History Tobacco Use Types Packs/Day Years Used Date Smoking Tobacco: Never Smokeless Tobacco: Never Alcohol Use Standard Drinks/Week Comments No 0 (1 standard drink = 0.6 oz pur e alcohol) Comments Unknown Sex and Gender Information Value Date Recorded Sex Assigned at Female 05/25/2017 5:23 PM EST Legal Sex Female 6:34 PM EST Gender Identity Female 05/25/2017 5:23 PM EST Sexual Orientation Not on file documented as of this encounter Plan of Treatment Upcoming Encounters Date Type Department Care Team (Late st Contact Info) Description 05/09/2025 2:20 PM EST Office Visit [facility] [address] [place] [address] [place] [address] Carla Enriquez MD [address] [place] [phone] [email or web address] documented as of this encounter Visit Diagnoses Not on filedocumented in this encounter Care Teams Cartographic Engineer Relationship Specialty Start Date End Date Lisha Lopez MD [address] [place] [address] PCP - General Internal Medicine 07/05/16 documented as of this encounter Additional Source Comments The information contained in this document represents components of the legal health record. It is not the complete legal health record.[facility]
--- OUTSIDE RECORDS SUMMARY | 2025-03-25 16:57 | XMS_ITS | Encounter Summary ---
Author Organization [facility] Address [facility] [address] [place] [address] Phone Care Team Providers Care Pump And Blower Operator Name Role Phone Lisha Lopez MD Primary Care Provider Encounter Details Date Type Department Care Team (Late st Contact Info) Description 05/27/2017 Procedure Pass [facility], Ct Scan - [address] [address] Social History Tobacco Use Types Packs/Day Years [...] Description 05/09/2025 2:20 PM EST Office Visit [facility] [address] [place] [address] [place] [address] Carla Enriquez MD [address] [place] [address] [email or web address] documented as of this encounter Visit Diagnoses Not on filedocumented in this encounter Care Teams Pump And Blower Operator Relationship Specialty Start Date End Date Lisha Lopez MD [address] [place] [address] PCP - General Internal Medicine 07/05/16 documented as of this encounter Additional Source Comments The information contained in this document represents components of the legal health record. It is not the complete legal health record.[facility]
--- OUTSIDE RECORDS SUMMARY | 2025-03-25 16:57 | XMS_ITS | Encounter Summary ---
Author Organization [facility] Address [facility] [address] [place] [address] Phone Care Team Providers Care Professor Of Psychiatry Name Role Phone Lisha Lopez MD Primary Care Provider Encounter Details Date Type Department Care Team (Late Contact Info) Description 07/07/2021 Procedure Pass [facility] DE[facility] [address] [place] [address] Social History Tobacco Use Types Packs/Day Years [...] Description 05/09/2025 2:20 PM EST Office Visit [facility] [address] [place] [address] [place] [address] Carla Enriquez MD [address] [place] [phone] [email or web address] documented as of this encounter Visit Diagnoses Not on filedocumented in this encounter Care Teams Professor Of Psychiatry Relationship Specialty Start Date End Date Lisha Lopez MD [address] [place] [address] PCP - General Internal Medicine 07/05/16 documented as of this encounter Additional Source Comments The information contained in this document represents components of the legal health record. It is not the complete legal health record.[facility]
--- OUTSIDE RECORDS SUMMARY | 2025-03-25 16:57 | XMS_ITS | Encounter Summary ---
Author Organization [facility] Address [facility] [address] [place] [address] Phone Care Team Providers Care Mailing Specialist Name Role Phone Lisha Lopez MD Primary Care Provider Encounter Details Date Type Department Care Team (Late Contact Info) Description 01/12/2019 Telephone [facility] [address] [place] [phone] Felipa Montague RN [email or web address] Social History Tobacco Use Types Packs/Day Years [...] Description 05/09/2025 2:20 PM EST Office Visit [facility] End[facility] [address] [place] [address] [place] [address] Carla Enriquez MD [address] [place] [phone] [email or web address] documented as of this encounter Visit Diagnoses Not on filedocumented in this encounter Care Teams Mailing Specialist Relationship Specialty Start Date End Date Lisha Lopez MD [address] [place] [address] PCP - General Internal Medicine 07/05/16 documented as of this encounter Additional Source Comments The information contained in this document represents components of the legal health record. It is not the complete legal health record.[facility]
--- OUTSIDE RECORDS SUMMARY | 2025-03-25 16:57 | XMS_ITS | Clinical Summary ---
Author Organization [address] [facility] Address [address] [place] [address] Phone Care Team Providers Care Research Compliance Specialist Name Role Phone Radha Perez MD Primary Care Provider [phone] Allergies Active Allergy Reactions Criticality Noted Date Comments Clindamycin Unknown 05/14/2006 Heparin Analogues Low 03/21/2023 Iodinated Contrast Media 12/12/2024 Latanoprost Palpitations High 03/21/2023 Morphine 06/29/2022 Other 06/29/2022 Iv Contrast Dye Warfarin Sodium Low 03/21/2023 Medications diclofenac (VOLTAREN) 1 % topical gel Apply 4 g topically 2 (two) times a day. 4 Active clotrimazole (LOTRIMIN) 1 % cream Apply to skin and toenails daily for 12 weeks 3 Active acetaminophen-cod eine (TYLENOL #3) 300-30 mg per tablet Take 1 tablet by mouth every 4 (four) hours if needed. Active timolol (TIMOPTIC) 0.5 % ophthalmic solution 1 drop 2 (two) times a day. Active ascorbic acid, vitamin C, 500 mg capsule Take by mouth. Activ e cholecalciferol (VITAMIN D-3) 50 mcg (2,000 unit) tablet Take by mouth. Activ e tafluprost, PF, 0.0015 % dropperette Administer into affected eye(s). Active silver sulfADIAZINE (Silvadene) 1 % cream Apply topically 1 (one) time each day. 50 g 5 12/13/19 26 Active Active Problems Problem Noted Date Diagnosed Date Lumbar spondylosis 05/03/2023 Overview (05/17/2024): Last Assessment & Plan: Patient comes in with complaints of transverse low back pain, bilateral buttock pain, right >left groin pain, to the top of the proximal right anterior inner thigh. She states initially symptoms started as a pulling sensation in the right groin, got worse as the day went on, then she had difficulty walking, states the pain got up to a 20/10. She went to the ED on 03/21/2023, lower extremity Dopplers negative for DVT, abdominal CT negative, patient had MRI lumbar spine that showed mild multilevel degenerative findings. She was sent to rehab for 1 week, does feel that things are improved compared to when she initially went to the ED, now is able to walk a little. She came up to the office in a wheelchair, uses a cane when she walks short distances. Currently rating her pain 7-8/10. 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 About a year ago she had injections in the knees but states it only helped for a few days, is trying to avoid surgery. Patient had lumbar spine MRI 03/21/2023 at [facility] that shows multilevel degenerative changes including mild disc bulging throughout the lumbar spine, L4-5 right DJD, left L5-S1 lateral recess and foraminal stenosis. I reviewed the images on the computer with the patient, she is legally blind, has left cataract but states she was able to see the images. Ms. England has significant tenderness over the SI joints, lower midline lumbar spine approximately L5-S1, + hip mechanical testing right >left. I did not see any x- rays of hips done, so I ordered that to be done today. She would like to try conservative treatment options like early breastfeeding care specialist, physical therapy, acupuncture. Prescription for PT given to patient, some names provided for seal skinner. At this point I did not think that her buttock and groin pain is coming from the degenerative changes at L4-5, L5-S1, but we will review the MRI with Dr. Cervantes. Patient does not want any cortisone injections for the SI joints. I will review her hip x-ray report, call her with results, if needed refer her to orthopedics, she has been seen in the past at [facility]. All questions answered. 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 yanez Thyroid cyst DX:Thyroid cyst PTSD (post-traumatic stress disorder) DX:PTSD (post-traumatic stress disorder) OCD (obsessive compulsive disorder) DX:OCD (obsessive compulsive disorder) Sleep apnea DX:Sleep apnea Depression DX:Depression Mixed hyperlipidemia DX:Mixed hy perlipidemia HTN (hypertension) DX:HTN (hyper tension) Right-sided lacunar infarcti on (CMS/HCC V24, CMS/HCC V28) DX:Right-sided lacunar infar ction (HCC); COMMENT: caudate nucleus Multinodular goiter (nontoxic) D X:Multinodular goiter (nontoxic) Type 2 diabetes mellitus (CM S/HCC V24, CMS/HCC V28) DX:Type 2 diabetes mellitus (HCC) Social History Tobacco Use Types Packs/Day Years Used Date Smoking Tobacco: Never Assessed Comments Unknown Sex and Gender Information Value Date Recorded Sex Assigned at Not on file Legal Sex Female 2:58 PM EST Gender Identity Not on file Sexual Orientation Not on file Last Filed Vital Signs Vital Sign Reading Time Taken Comments Blood Pressure 186/94 12/12/2024 7:29 PM EDT Pulse 87 12/12/2024 7:28 PM EDT Temperature 36.3 C (97.4 F) 12/12/2024 6:25 PM EDT Respiratory Rate 18 12/12/2024 6:25 PM EDT Oxygen Saturation 98% 12/12/2024 7:28 PM EDT Inhaled Oxygen Concentration - - Weight 70.3 kg (155 lb) 12/12/2024 2:33 PM EDT Height 165.1 cm (5' 5 ) 12/12/2024 2:33 PM EDT Body Mass Index 25.79 12/12/2024 2:33 PM EDT Plan of Treatment Upcoming Encounters Date Type Department Care Team (Late st Contact Info) Description 05/01/2025 1:00 PM EST Office Visit Orthopedic Surgery - [place] [id number] [address] [place], DPM [address] [address] Health Maintenance Due Date Last Done Comments Diabetes: Annual Foot Exam 1950 Diabetes: Annual Retina Eye Exam 1950 Pneumococcal Vaccine: 50+ Ye ars (1 of 2 - PCV) 1960 Zoster Vaccines (1 of 2) 1991 RSV Immunization Adult Patie nts (1 - 1-dose 75+ series) 2016 DTaP,Tdap,and Td Vaccines (2 - Tdap) 12/11/2016 12/11/2006 Falls Risk Assessment 03/03/2022 Medicare Annual Wellness Visit 03/03/2022 Osteoporosis Screening (Bone Density Screening) 03/03/2022 Social Influencers of Health Screening 03/03/2022 Cholesterol Screening (Lipid Panel) 05/26/2022 05/26/2017 Depression Screening 04/04/2024 Diabetes: Annual Urine Albumin-Creatinine Ratio (uACR) 07/13/2024 Diabetes: Blood Sugar Contro l Test (HGBA1C) 07/13/2024 COVID-19 Vaccine (2024-2 6 season) 2024 Influenza Vaccine (#1) 2024 Diabetes: Annual GFR (Glomer ular Filtration Rate) 12/12/2025 12/12/2024 Hypertension/CHF/CAD Annual BMP Blood Test 12/12/2025 12/12/2024 Meningococcal ACWY Vaccine Aged Out 03/24/1997 N o longer eligible based on patient's age to complete this topic HIB Vaccines Aged Out No longer eligi ble based on patient's age to complete this topic HPV Vaccines Aged Out No longer eligi ble based on patient's age to complete this topic Hepatitis A Vaccines Aged Out No long er eligible based on patient's age to complete this topic Hepatitis B Vaccines Aged Out No long er eligible based on patient's age to complete this topic IPV Vaccines Aged Out No longer eligi ble based on patient's age to complete this topic MMR Vaccines Aged Out No longer eligi ble based on patient's age to complete this topic Meningococcal B Vaccine Aged Out No l onger eligible based on patient's age to complete this topic RSV Immunization Patients Un osorio 20 months Aged Out No longer eligible b ased on patient's age to complete this topic Varicella Vaccines Aged Out No longer eligible based on patient's age to complete this topic Procedures Procedure Name Priority Date/Time Associated Diagnosis Comments COMPREHENSIVE METABOLIC PANEL STAT 12/12/2024 7:09 PM EDT from Last 3 Months or Most Recently Relevant to Health Maintenance Results * (ABNORMAL) Comprehensive Metabolic Panel (CMP) (12/12/2024 7:09 PM EDT) Sodium 139 133 - 145 mmol/L LAB CHEMISTRY METHOD 12/12/2024 8:00 PM [facility] Potassium 3.6 3.5 - 5.5 mmol/L LAB CHEMISTRY METHOD 12/12/2024 8:00 PM [facility] Chloride 109 96 - 110 mmol/L LAB CHEMISTRY METHOD 12/12/2024 8:00 PM [facility] CO2 27 21 - 32 mmol/L LAB CHEMISTRY METHOD 12/12/2024 8:00 PM [facility] Anion Gap 3 3 - 11 LAB CHEMISTRY METHOD 12/12/2024 8:00 PM [facility] Glucose 106(H) 70 - 100 mg/dL LAB CHEMISTRY METHOD 12/12/2024 8:00 PM [facility] BUN 16 5 - 25 mg/dL LAB CHEMISTRY METHOD 12/12/2024 8:00 PM [facility] Creatinine 0.76 0.50 - 1.10 mg/dL LAB CHEMISTRY METHOD 12/12/2024 8:00 PM [facility] eGFR 78 >=60 mL/min/1. 73m2 LAB CHEMISTRY METHOD 12/12/2024 8:00 PM [facility] Comment:Calculation based on the Chronic Kidney Disease Epidemiology Collaboration (CKD-EPI) equation refit without adjustment for race. BUN/Creatinine Ratio 21.1 LAB CHEMISTRY METHOD 12/12/2024 8:00 PM [facility] Calcium 10.1 8.5 - 10.5 mg/dL LAB CHEMISTRY METHOD 12/12/2024 8:00 PM [facility] AST (SGOT) 24 10 - 42 unit/L LAB CHEMISTRY METHOD 12/12/2024 8:00 PM [facility] ALT (SGPT) 23 10 - 60 unit/L LAB CHEMISTRY METHOD 12/12/2024 8:00 PM [facility] Alkaline Phosphatase 77 42 - 121 unit/L LAB CHEMISTRY METHOD 12/12/2024 8:00 PM [facility] Total Protein 7.5 6.0 - 8.0 g/dL LAB CHEMISTRY METHOD 12/12/2024 8:00 PM [facility] Albumin 4.0 3.2 - 5.0 g/dL LAB CHEMISTRY METHOD 12/12/2024 8:00 PM [facility] Total Bilirubin 0.6 0.0 - 1.4 mg/dL LAB CHEMISTRY METHOD 12/12/2024 8:00 PM [facility] Blood Venous blood specimen / Unknown Venipuncture / Unknown 12/12/2024 7:09 PM EDT 12/12/2024 7:23 PM EDT us Shell Boo MD LAB BLOOD ORDERABLES Final Resul t [facility] [address] [place] [address], [place] [phone] from Last 3 Months or Most Recently Relevant to Health Maintenance Insurance [employer] Member Subscriber Plan / Payer (Ef fective 2015-Present) Name:Vibha England Relation to Subscriber:Self Name:Tomás Vibha Payer ID:[id number] Group ID:[id number] Type:Not on file Address: [address] [place] [address] Advance Directives Documents on File Type Date Recorded Patient Subsurface Augmentee Elint Operator Expl anation Health Care Decision (hx) 01/20/2023 AD ROSAS DIRECTIVE Health Care Decision (hx) 01/20/2023 AD ROSAS DIRECTIVE Health Care Decision (hx) 01/20/2023 AD ROSAS DIRECTIVE Care Teams Research Compliance Specialist Relationship Specialty Start Date End Date Radha Perez MD [address] [place] [address] PCP - General 06/18/22
--- OUTSIDE RECORDS SUMMARY | 2025-03-25 16:57 | XMS_ITS | Encounter Summary ---
Author Organization [facility] Address [facility] [address] [place] [address] Phone Care Team Providers Care Health Care Attorney Name Role Phone Lisha Lopez MD Primary Care Provider Encounter Details Date Type Department Care Team (Late st Contact Info) Description 10/07/2020 Prep for Surgery [facility] Comprehensive Ophthalmology Service [address] [facility] 1st [place] [address] Carla Stockton MD [address] [address] [email or web address] [email or web address] Primary open angle glaucoma (POAG) of both eyes, indeterminate stage (Primary Dx) Social History Tobacco Use Types Packs/Day Years [...] on file documented as of this encounter H&P Notes * Carla Stockton MD - 10/07/2020 4:12 PM EDT FOCUSED OPHTHALMOLOGY SURGICAL H&P Date: 10/07/2020 Indication for surgery (proposed procedure): cataract and open angle glaucoma Proceed with cataract surgery and trabectome, left eye Past Medical/Surgical History/Problem List: Past Medical History: Diagnosis Date ??? Arthritis ??? Cataract ??? DVT (deep venous thrombosis) 2000 right leg ??? Glaucoma Past Surgical History: Procedure Laterality Date ??? BUNIONECTOMY ??? FOOT SURGERY ??? GLAUCOMA LASER SURGERY Right 12/24/2014 SLT ??? PHACOEMULSIFICATION OF CATARACT WITH INTRAOCULAR LENS IMPLANT Right 09/09/2020 Procedure: PHACOEMULSIFICATION OF CATARACT WITH INTRAOCULAR LENS IMPLANT; Surgeon: Janneth Call MD; Location: [address]; Service: Ophthalmology ??? TRABECTOME Right 09/09/2020 Procedure: TRABECTOME; Surgeon: Janneth Call MD; Location: [address]; Service: Ophthalmology ??? UNCODED SURGICAL HISTORY bunionectomy Patient Active Problem List Diagnosis Date Noted ??? Left arm weakness 05/26/2017 ??? Diabetes mellitus, type 2 05/26/2017 ??? Influenza B 05/26/2017 ??? Intercostal pain 05/26/2017 ??? Glaucoma 01/01/2013 ??? Anxiety 01/01/2013 ??? Sleep apnea 01/01/2013 ??? Thyroid nodule 01/01/2013 Allergies/Reactions: Allergies Allergen Reactions ??? Clindamycin Unknown ??? Morphine Other (See Comments) vomiting ??? Phs Other Free Text-See Phs Viewer nuclear dye Medications: Current Outpatient Medications Medication Sig Dispense Refill ??? aspirin 81 mg chewable tablet Take 81 mg by mouth. ??? CALCIUM CARBONATE (CALCIUM 500 ORAL) ??? cholecalciferol, vitamin D3, (CHOLECALCIFEROL, VIT D3,,BULK, MISC) by Miscellaneous route. ??? dorzolamide (TRUSOPT) 2 % ophthalmic solution Place 1 drop into each eye 2 (two) times a day. (Patient not taking: Reported on 09/09/2020) 10 mL 12 ??? dorzolamide (TRUSOPT) 2 % ophthalmic solution Place 1 drop into the right eye 2 (two) times a day. 10 mL 12 ??? latanoprost (XALATAN) 0.005 % ophthalmic solution Place 1 drop into each eye nightly at bedtime. 2.5 mL 12 ??? Medication-Free Text Vitamin D ??? Medication-Free Text Multivitamin ??? Medication-Free Text Calcium ??? moxifloxacin (VIGAMOX) 0.5 % ophthalmic solution Place 1 drop into the right eye 3 (three) times a day. 3 mL 5 ??? moxifloxacin (VIGAMOX) 0.5 % ophthalmic solution Place 1 drop into the right eye 4 (four) timesa day. 3 mL 5 ??? MULTIVITAMIN ORAL Take by mouth. ??? netarsudiL (RHOPRESSA) 0.02 % ophthalmic solution Place 1 drop into each eye nightly at bedtime. Dispose of bottle 6 weeks after opening. 2.5 mL 12 ??? pilocarpine (ISOPTO CARPINE) 1 % ophthalmic solution Place 1 drop into the right eye 4 (four) times a day. (Patient not taking: Reported on 09/15/2020) 15 mL 12 ??? prednisoLONE acetate (PRED FORTE) 1 % ophthalmic suspension Place 1 drop into the right eye 4 (four) times a day. 5 mL 5 ??? TURMERIC ROOT EXTRACT ORAL ??? vit B complex-folic acid 0.4 mg Tab Take 1 tablet by mouth daily. No current facility-administered medications for this visit. Relevant Eye History: See most recent office note. Any changes are as follows: none Ophthalmic Exam: See most recent office note. Any changes are as follows: none Assessment and Surgical Plan: Proceed with cataract surgery and trabectome as scheduled left eye documented in this encounter Plan of Treatment Upcoming Encounters Date Type Department Care Team (Late st Contact Info) Description 05/09/2025 2:20 PM EST Office Visit [facility] [address] [place] [address] Carla Enriquez MD [address] [place] [address] [email or web address] documented as of this encounter Visit Diagnoses Diagnosis Primary open angle glaucoma (POAG) of both eyes, indeterminate stage- Primary documented in this encounter Care Teams Health Care Attorney Relationship Specialty Start Date End Date Lisha Lopez MD [address] [place] [address] PCP - General Internal Medicine 07/05/16 documented as of this encounter Additional Source Comments The information contained in this document represents components of the legal health record. It is not the complete legal health record.[facility]
--- OUTSIDE RECORDS SUMMARY | 2025-03-25 16:57 | XMS_ITS | Clinical Summary ---
Author Organization [facility] Address [address] [place] [address] Care Team Providers Care Hat Lining Blocker Name Role Phone Lisha Lopez Primary Care Provider [phone] Allergies Active Allergy Reactions Criticality Noted Date Comments Clindamycin Unknown 05/15/2006 Morphine Unknown 05/15/2006 vomiting Medications XALATAN 0.005 % ophthalmic solution INSTILL 1 DROP INTO BOTH EYES AT BEDTIME 5 9 Active calcium carbonate (OS-WAN) 600 mg calcium (1,500 mg) tablet Take 600 mg by mouth 2 times a day with breakfast & dinner. Active Active Problems No known active problems Social History Tobacco Use Types Packs/Day Years Used Date Smoking Tobacco: Never Assessed Comments Unknown Sex and Gender Information Value Date Recorded Sex Assigned at Not on file Legal Sex Female 6:04 PM EST Gender Identity Not on file Sexual Orientation Not on file Plan of Treatment Not on file Insurance [facility] Care Teams Hat Lining Blocker Relationship Specialty Start Date End Date Lisha Lopez [address] [place] [address] [facility] - General 05/06/16
--- OUTSIDE RECORDS SUMMARY | 2025-03-25 16:57 | XMS_ITS | Encounter Summary ---
Author Organization [facility] Address [facility] [address] [place] [address] Phone Care Team Providers Care Credit Report Checker Name Role Phone Lisha Lopez MD Primary Care Provider Encounter Details Date Type Department Care Team (Late st Contact Info) Description 05/25/2017 Procedure Pass [facility], Ct Scan - [address] [address] Social History Tobacco Use Types Packs/Day Years [...] Description 05/09/2025 2:20 PM EST Office Visit [facility] [address] [place] [address] [place] [address] Carla Enriquez MD [address] [place] [address] [email or web address] documented as of this encounter Visit Diagnoses Not on filedocumented in this encounter Care Teams Credit Report Checker Relationship Specialty Start Date End Date Lisha Lopez MD [address] [place] [address] PCP - General Internal Medicine 07/05/16 documented as of this encounter Additional Source Comments The information contained in this document represents components of the legal health record. It is not the complete legal health record.[facility]
--- OUTSIDE RECORDS SUMMARY | 2025-03-25 16:57 | XMS_ITS | Clinical Summary ---
Author Organization [facility] Address [facility] [address] [place] [phone] Phone Care Team Providers Care [employer] Name Role Phone Lisha Lopez MD Primary Care Provider Allergies Active Allergy Reactions Criticality Noted Date Comments Clindamycin Unknown 05/15/2006 Morphine Other (See Comments) 05/15/2006 vomiting Phs Other Free Text-See Phs Viewer 04/01/2014 nuclear dye Medications MULTIVITAMIN ORAL Take by mouth. Activ e CALCIUM CARBONATE (CALCIUM 500 ORAL) Active vit B complex-folic acid 0.4 mg Tab Take 1 tablet by mouth daily. Active cholecalcifero l, vitamin D3, (CHOLECALCIFER OL, VIT D3,,BULK, MISC) by Miscellaneous route. 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 Aspirin and statin recommended but the patient will not take a statin for a fear of worsening her glaucoma, which we cannot find has a documented side effect. She will need her diabetes treated. Blood pressure is reasonable although she has a few high readings in the 170s. Once we have MRI evidence then she can proceed with PT OT and risk reduction. Diabetes mellitus, type 2 05/26/2017 Assessment & Plan (05/26/2017 5:20 PM EST): The A1c proves diabetes. Will need teaching, probably start metformin. Influenza B 05/26/2017 Assessment & Plan (05/26/2017 5:21 PM EST): Supportive care -IVF -Symptom therapy Added Tamiflu as the CDC recommends treating even after 2 days when patients with flu are hospitalized, and she has documented influenza B. Intercostal pain 05/26/2017 Assessment & Plan (05/26/2017 5:21 PM EST): Likely exacerbated by cough associated with flu -Toradol when necessary -Trops negative Glaucoma 01/01/2013 Overview (05/25/2014): Glaucoma Assessment & Plan (05/26/2017 12:39 AM EST): Continue Trusopt Anxiety 01/01/2013 Overview (05/25/2014): Anxiety Sleep apnea 01/01/2013 Overview (05/25/2014): Sleep apnea Hyperlipidemia 04/27/2007 Hypertension 04/27/2007 Multinodular goiter Assessment & Plan (08/25/2023 1:18 PM EDT): 83 y.o. woman with longstanding multinodular goiter. Has been euthyroid. No compressive symptoms. Ultrasound stable 2020. Will obtain/review previous records. Will check TFTs today. Will repeat ultrasound. Advised her to contact me if does not hear from me with results within 1-2 weeks. Decreased heart rate Assessment & Plan (08/25/2023 1:22 PM EDT): She was concerned @ HR 58, typically in 70s. BP ok, not symptomatic. On repeat 60-62, regular. She ? If potentially related to her supplements & will cut back. Think ok to monitor @ routine follow up w/ PCP Family History Medical History Relation Comments Hyperthyroidism Mother hyperthyroidism Type 2 Diabetes Mother diabetes mellitu s type 2 Coronary artery disease Paternal Grandmother cor onary artery disease Hypertension Paternal Grandmother hypertensio n Relation Status Comments Mother Paternal Grandmother Social History Tobacco Use Types Packs/Day Years Used Date Smoking Tobacco: Never Smokeless Tobacco: Never Alcohol Use Standard Drinks/Week Comments No 0 (1 standard drink = 0.6 oz pur e alcohol) Education Answer Date Recorded Are you interested in more education? Not on aliyah e 07/31/2022 Are you concerned about learning? Not on file 07/31/2022 No 07/31/2022 No 07/31/2022 Digital Access Answer Date Recorded No 08/29/2022 No 08/29/2022 Reliable internet access at home? Not on file 08/29/2022 Device with a working camera? Not on file Comments No Sex and Gender Information Value Date Recorded Sex Assigned at Female 05/25/2017 5:23 PM EST Legal Sex Female 6:34 PM EST Gender Identity Female 05/25/2017 5:23 PM EST Sexual Orientation Not on file Last Filed Vital Signs Vital Sign Reading Time Taken Comments Blood Pressure 138/88 08/25/2023 11:05 AM EDT Pulse 58 08/25/2023 11:05 AM EDT Temperature 36.1 C (96.9 F) 09/09/2020 2:02 PM EDT Respiratory Rate 14 09/09/2020 2:15 PM EDT Oxygen Saturation 96% 09/09/2020 2:15 PM EDT Inhaled Oxygen Concentration - - Weight 69.4 kg (153 lb) 08/25/2023 11:05 AM EDT Height 160 cm (5' 3 ) 08/25/2023 11:05 AM EDT Body Mass Index 27.1 08/25/2023 11:05 AM EDT Plan of Treatment Upcoming Encounters Date Type Department Care Team (Late st Contact Info) Description 05/09/2025 2:20 PM EST Office Visit [facility] [address] [place] [address] Carla Enriquez MD [address] [place] [address] [address] [place] [address] [email or web address] Health Maintenance Due Date Last Done Comments Adult Td,Tdap Booster 1941 DEPRESSION SCREENING 1953 PNEUMOCOCCAL VACCINES (50+ years) (1 of 2 - PCV) 1960 ZOSTER VACCINES (1 of 2) 1991 OSTEOPOROSIS SCREENING INITIAL (ONE-TIME) 2006 RSV VACCINE (1 - 1-dose 75+ series) 2016 URINE MICROALBUMIN/CREATININE RATIO 05/26/2017 HEMOGLOBIN A1C 11/23/2017 05/26/2017 LIPID PANEL 05/26/2018 05/26/2017 DIABETIC EYE EXAM 06/08/2022 06/08/2021, , 06/08/2021, Additional history exists BLOOD PRESSURE 02/25/2024 08/25/2023 INFLUENZA VACCINE (#1) 2024 COVID-19 VACCINE ( season) 2024 MENINGOCOCCAL VACCINES (ACWY) Aged Out 03[birth year]24[birth year]1997 No longer eligible based on patient's age to complete this topic HEPATITIS A VACCINES Aged Out No long er eligible based on patient's age to complete this topic HIB VACCINES Aged Out No longer eligi ble based on patient's age to complete this topic MENINGOCOCCAL VACCINES (B) Aged Out N o longer eligible based on patient's age to complete this topic Medical Devices Implanted Type Area Education Nurse Device Identifier Shelf Expiration Date Model / Serial / Lot Lens Intraocular [id number] 24.0d - [id number] Implanted:Qty: 1 on 09/09/2020 by Janneth Call MD at [facility] Right: Eye [employer] 05/25/2025 [id number] / [id number] / Procedures Procedure Name Priority Date/Time Associated Diagnosis Comments HEMOGLOBIN A1C Routine 05/26/2017 5:58 AM EST LIPID PANEL Routine 05/26/2017 5:58 AM EST from Last 3 Months or Most Recently Relevant to Health Maintenance Results * (ABNORMAL) Hemoglobin A1c (05/26/2017 5:58 AM EST) HEMOGLOBIN A1C 7.4(H) 4.3 - 5.8 % [facility] Blood 05/26/2017 5:58 AM EST 05/26/2017 6:37 AM EST us Eric Parada MD LAB BLOOD BKR ORDERABLES F inal Result [address] [address] * Lipid panel ([facility], [facility], [facility], [facility], [facility], [facility], [facility], [facility], [facility], [facility], [facility], [facility], [facility]) (05/26/2017 5:58 AM EST) HDL 39 mg/dL [facility] Comment: Interpretation: Risk Level Females Decreased >55mg/dL Average 50-55 mg/dL Increased <50 mg/dL CHOLESTEROL 172 0 - 240 mg/dL [facility] TRIGLYCERIDES 147 30 - 160 mg/dL [facility] LDL 104 50 - 129 mg/dL [facility] Comment: LDL levels in terms of risk for coronary heart disease: <100 mg/dL: Optimal 100-129 mg/dL: Near or above optimal 130-159 mg/dL: Borderline high 160-189 mg/dL: High >190 mg/dL: Very High CARDIAC RISK RATIO 4.4 3.3 - 4.4 [facility] Blood 05/26/2017 5:58 AM EST 05/26/2017 6:37 AM EST us Eric Parada MD LAB BLOOD BKR ORDERABLES F inal Result Performing Organization Address City/[facility] [employer] Phone Number [address] [address] from Last 3 Months or Most Recently Relevant to Health Maintenance Insurance [facility] MEDICARE REPLACEMENT [facility] [place] [id number] [facility]PLACEMENT [facility] MEDICARE [facility]AC[address] [place] [address] [place] [address] [address] [place] [address] [address] [address] [address] MEDICARE REPLACEMENT [facility] MEDICARE REPLACEMENT [facility] Advance Directives For more information, please contact: [phone] (9AM - 5PM [facility], Tuesday-Tuesday) Documents on File Type Date Recorded Patient Director Of Restaurant Expl anation Healthcare Proxy 09/10/2020 1:27 PM * Full Code (Latest Code Status on File) Date Activated Date Inactivated Comments 09/09/2020 11:58 AM presumed Question Answer Comments Code Status Confirmed With: Other (specify below ) * Full Code (Confirmed) Date Activated Date Inactivated Comments 05/26/2017 12:53 AM 05/29/2017 12:09 AM Question Answer Comments Code Discussion Comments: patient Care Teams [employer] Relationship Specialty Start Date End Date Lisha Lopez MD [address] [place] [address] PCP - General Internal Medicine 07/05/16 Additional Source Comments The information contained in this document represents components of the legal health record. It is not the complete legal health record.[facility]
== END 2025-03-25 14:49 | disposition home or self-care (01) ==
LOC: HO.HPODS 13:33
PROVIDERS: PCP Internal Medicine; Visit Provider Student in an Organized Health Care Education/Training Program
DX: L02.611 Cutaneous abscess of right foot (principal); B35.1 Tinea unguium; L03.031 Cellulitis of right toe; L03.032 Cellulitis of left toe
CPT/HCPCS: 10060; 99204